=== PATIENT | female | born 1970 | race Caucasian/White ===

== ENCOUNTER → 2016-09-01 | Outpatient (CLI) | payer OTHER ==
[2016-09-01 18:18] LABS: Blood Urea Nitrogen 12 mg/dL (7-17); Non-African American GFR(MDRD) >60 (>60 ml/min/1.73 sqM)
--- NOTE | 2016-09-01 19:20 | CT ---
EXAMINATION TYPE: CT brain wo/w con DATE OF EXAM: 09/01/2016 COMPARISON: January 05, 2016 HISTORY: Left eye visoin loss and left side neck swelling. CT DLP: 6.4mGycm CONTRAST: CT scan of the head is performed without and with IV Contrast, patient injected with 100 mL of Omnipa que 300. Unenhanced followed by contrast enhanced CT of the brain is submitted for evaluation. The ventricles are midline. There is no evidence for intracranial hemorrhage or extra-axial collection. No mass e ffects are identified. Visualized bony calvarium is intact. Contrast is administered and no enhanci ng lesions are detected. No pathologic enhancement is identified. If symptoms persist consider MRI. IMPRESSION: No significant abnormality identified at this time.
--- NOTE | 2016-09-02 06:54 | US ---
EXAMINATION TYPE: US carotid duplex BILAT DATE OF EXAM: 09/01/2016 COMPARISON: US CLINICAL HISTORY: R51 Left facial pain,H54.62 Left vison loss. Left facial pain, vision loss EXAM MEASUREMENTS: RIGHT: Peak Systolic Velocity (PSV) cm/sec ----- Right CCA: 77.3 ----- Right ICA: 68.6 ----- Right ECA: 61.9 ICA/CCA ratio: 0.9 RIGHT: End Diastole cm/sec ----- Right CCA: 19.7 ----- Right ICA: 33.2 ----- Right ECA: 12.1 LEFT: Peak Systolic Velocity (PSV) cm/sec ----- Left CCA: 88.9 ----- Left ICA: 68.1 ----- Left ECA: 66.0 ICA/CCA ratio: 0.8 LEFT: End Diastole cm/sec ----- Left CCA: 21.4 ----- Left ICA: 28.7 ----- Left ECA: 13.1 VERTEBRALS (direction of flow): Right Vertebral: Antegrade Left Vertebral: Antegrade No elevated velocities, no significant stenosis IMPRESSION: I DO NOT SEE EVIDENCE OF A HEMODYNAMICALLY SIGNIFICANT STENOSIS IN EITHER CAROTID SYSTEM. Criteria for Assigning % of Stenosis / Diameter reduction (Estimation based on the indirect measurements of the internal carotid artery velocities (ICA PSV). 1. Normal (no stenosis)=ICA PSV < 125 cm/s: ratio < 2.0: ICA EDV<40 cm/s. 2. Less than 50% stenosis=ICA PSV < 125 cm/s: ratio < 2.0: ICA EDV<40 cm/s. 3. 50 to 69% stenosis=ICA PSV of 125 to 230 cm/s: ration 2.0 ? 4.0: ICA EDV 40-100 cm/s. 4. Greater than 70% stenosis to near occlusion= ICA PSV > 230 cm/s: ratio > 4.0: ICA EDV > 100 cm/s. 5. Near occlusion= ICA PSV velocities may be low or undetectable: variable ratio and ICA EDV. 6. Total occlusion=unable to detect flow.
== END | disposition home or self-care (01) ==
LOC: RADUSMAIN 17:47
PROVIDERS: ATTEND Family Medicine
DX: R41.3 Other amnesia (principal); H53.122 Transient visual loss, left eye; R51 Headache
CPT/HCPCS: 82565; 84520; 93880; 70470; 36415; Q9967

== ENCOUNTER → 2016-11-17 | Outpatient (CLI) | payer OTHER ==
--- NOTE | 2016-11-22 09:35 | MM ---
Reason for exam: screening (asymptomatic). Last mammogram was performed 2 years and 1 month ago. History: Family history of breast cancer in maternal aunt. Physical Findings: A clinical breast exam by your physician is recommended on an annual basis and results should be correlated with mammographic findings. MG Screening Mammo w CAD Bilateral CC and MLO view(s) were taken. XCCL view(s) were taken of the left breast. Prior study comparison: October 07, 2014, mammogram, performed at [facility]. September 09, 2013, mammogram, performed at [facility]. There are scattered fibroglandular densities. There is no discrete abnormality. No significant changes when compared with prior studies. ASSESSMENT: Negative, BI-RAD 1 RECOMMENDATION: Routine screening mammogram of both breasts in 1 year.
== END | disposition home or self-care (01) ==
LOC: RADMAMWWP 16:11
PROVIDERS: ATTEND Family Medicine
DX: Z12.31 Encounter for screening mammogram for malignant neoplasm of breast (principal)

== ENCOUNTER → 2017-09-05 | Outpatient (CLI) | payer OTHER ==
[2017-09-05 12:24] LABS: Blood Urea Nitrogen 9 mg/dL (7-17)
--- NOTE | 2017-09-05 16:16 | CT ---
EXAMINATION TYPE: CT soft tissue neck w con DATE OF EXAM: 09/05/2017 COMPARISON: NONE HISTORY: Lt neck pain and mass CT DLP: 682 mGycm CONTRAST: Patient injected with 100 mL of Isovue 300. TECHNIQUE: Axial images at 3 mm thick sections. Reconstructed images in the coronal plane and sagitt al plane are reviewed. FINDINGS: Limited CT sections are obtained the lung apices. The lung apices appear clear. CT neck: The torus tubarius and fossa of Rosenmuller are normal. Wafer Fab Operator spaces are normal. Para nasal sinuses and mastoid air cells are clear. Beam hardening artifact from dental amalgam is present. Parotid glands appear normal and symmetrical. Submandibular glands, are normal. There are prominent nodes in the submandibular region measuring up to 0.8 to 0.9 cm size. The BB marking the palpable am algam overlies the left parotid gland. No underlying mass is evident. Parapharyngeal spaces are osito l. No suspicious enlarged adenopathy is evident. The hypopharynx appears within normal limits. Vocal cord level appear symmetrical. Thyroid as visualized is normal. Osseous structures are normal. IMPRESSIONS: 1. No suspicious mass at the level of the left parotid gland marked by the BB as the palpable abnorma lity.
== END | disposition home or self-care (01) ==
LOC: RADCTMAIN 11:34
PROVIDERS: ATTEND Family Medicine
DX: R22.1 Localized swelling, mass and lump, neck (principal)
CPT/HCPCS: 82565; 84520; 70491; 36415; Q9967

== ENCOUNTER → 2017-12-19 | Outpatient (CLI) | payer OTHER ==
[2017-12-19 16:58] LABS: Basophils % (A) 0 %; Eosinophils # (A) 0.2 k/uL (0-0.7); Eosinophils % (A) 2 %; HCT 47.2 % (34.0-46.0); HGB 15.9 gm/dL (11.4-16.0); Lymphocytes # (A) 2.5 k/uL (1.0-4.8); Lymphocytes % (A) 33 %; MCH 28.9 pg (25.0-35.0); MCHC 33.7 g/dL (31.0-37.0); MCV 85.8 fL (80.0-100.0); Mean Platelet Volume 7.7; Monocytes # (A) 0.3 k/uL (0-1.0); Monocytes % (A) 4 %; Neutrophils # (A) 4.7 k/uL (1.3-7.7); Neutrophils % (A) 60 %; Platelet Count 256 k/uL (150-450); RDW 12.6 % (11.5-15.5); WBC 7.7 k/uL (3.8-10.6)
[2017-12-19 18:30] LABS: Erythrocyte Sedimentation Rate 2 mm/hr (0-20)
[2017-12-20 04:08] LABS: Hemoglobin A1C 10.5 % (4.0-6.0)
== END | disposition home or self-care (01) ==
LOC: LABWHC1 16:21
PROVIDERS: ATTEND Ophthalmology
DX: M31.6 Other giant cell arteritis (principal)
CPT/HCPCS: 36415; 82164; 83036; 85025; 85652; 86038; 86140

== ENCOUNTER → 2017-12-21 | Outpatient (CLI) | payer OTHER ==
--- NOTE | 2017-12-21 14:18 | MM ---
Reason for exam: screening (asymptomatic). Last mammogram was performed 1 year and 1 month ago. History: Family history of breast cancer in maternal aunt. Physical Findings: A clinical breast exam by your physician is recommended on an annual basis and results should be correlated with mammographic findings. MG Screening Mammo w CAD Bilateral CC and MLO view(s) were taken. Prior study comparison: November 17, 2016, bilateral MG screening mammo w CAD. October 07, 2014, mammogram, performed at [facility]. There are scattered fibroglandular densities. There is no discrete abnormality. ASSESSMENT: Negative, BI-RAD 1 RECOMMENDATION: Routine screening mammogram of both breasts in 1 year.
== END | disposition home or self-care (01) ==
LOC: RADMAMWWP 07:18
PROVIDERS: ATTEND Family Medicine
DX: Z12.31 Encounter for screening mammogram for malignant neoplasm of breast (principal)
CPT/HCPCS: 77067

== ENCOUNTER → 2017-12-23 | Outpatient (CLI) | payer OTHER ==
--- NOTE | 2017-12-25 15:43 | MR ---
EXAMINATION TYPE: MR brain wo/w con DATE OF EXAM: 12/23/2017 COMPARISON: CT brain September 01, 2016. MRI brain July 25, 2012 HISTORY: cranial nerve disorder loss of vision TECHNIQUE: Multiplanar, multisequence images of the brain and brainstem is performed without and with IV contras t, utilizing 9 mL intravenous Gadavist . FINDINGS: Diffusion weighted images demonstrate no evidence of a recent infarct or other diffusion ab normality. There is no worrisome extra-axial fluid collection. The ventricular system and cisternal spaces are normal in size and appearance. The brain volume is age appropriate. A few scattered smal l foci of T2 hyperintensity seen throughout the white matter bilaterally. Less than 5 lesions are pre sent. For reference 3 mm left frontal lesion axial image 19 and 3 mm elongated posterior right fronta l lesion axial image 21 are noted. These are new from prior study. Midline structures demonstrate normal morphology. The craniocervical junction appears within normal limits. Post contrast images demonstrate no abnormal enhancement. The dural venous sinuses appear pa tent. The visualized sinuses are clear and the globes are intact. IMPRESSION: New minimal nonspecific white matter changes otherwise unremarkable study. No suspicious enhancement is present.
== END | disposition home or self-care (01) ==
LOC: RADMRIMAIN 08:49
PROVIDERS: ATTEND Ophthalmology
DX: G52.9 Cranial nerve disorder, unspecified (principal); Z88.7 Allergy status to serum and vaccine
CPT/HCPCS: 82565; 70553; 36415; A9581

== ENCOUNTER → 2018-01-15 | Outpatient (CLI) | payer OTHER ==
[2018-01-15 12:11] LABS: T4, Free (Free Thyroxine) 1.48 ng/dL (0.78-2.19)
== END | disposition home or self-care (01) ==
LOC: LABWHC1 10:52
PROVIDERS: ATTEND Psychiatry & Neurology Neurology
DX: R41.3 Other amnesia (principal)
CPT/HCPCS: 36415; 82607; 84439; 84443

== ENCOUNTER → 2018-02-10 | Outpatient (CLI) | payer OTHER ==
--- NOTE | 2018-02-11 12:24 | MR ---
EXAMINATION TYPE: MR cervical spine wo con DATE OF EXAM: 02/10/2018 12:18 PM COMPARISON: NONE HISTORY: Headaches with Left arm weakness Multiplanar MultiSpin echo imaging of the cervical spine was performed. Comparison: none C2-C3: No evidence for degenerative disc disease. No disc bulge/herniation or protrusion. No Canal stenosis. Foramina are patent bilaterally. C3-C4: No evidence for degenerative disc disease. No disc bulge/herniation or protrusion. No Canal stenosis. Foramina are patent bilaterally. C4-C5: There is mild disc desiccation noted. Mild posterior disc bulge. No evidence for a disc hernia tion or central stenosis. Bilateral foramina are patent. C5-C6: There is mild disc desiccation noted. Mild posterior disc bulge. No evidence for a disc hernia tion or central stenosis. Bilateral foramina are patent. C6-C7: There is mild disc desiccation noted. Mild posterior disc bulge. No evidence for a disc hernia tion or central stenosis. Bilateral foramina are patent. C7-T1: No evidence for degenerative disc disease. No disc bulge/herniation or protrusion. No Canal stenosis. Foramina are patent bilaterally. Cervical segments are intact. There is normal alignment. Cervical spinal cord is of normal signal. Craniovertebral junction relationships are within normal limits. IMPRESSION: 1. Disc desiccation and disc bulging as noted.
== END | disposition home or self-care (01) ==
LOC: RADMRIMAIN 11:27
PROVIDERS: ATTEND Psychiatry & Neurology Neurology
DX: M50.221 Other cervical disc displacement at C4-C5 level (principal); M50.821 Other cervical disc disorders at C4-C5 level; G43.009 Migraine without aura, not intractable, without status migrainosus
CPT/HCPCS: 72141

== ENCOUNTER → 2018-03-10 | Outpatient (CLI) | payer OTHER ==
--- NOTE | 2018-03-11 17:06 | MR ---
EXAMINATION TYPE: MR lumbar spine wo con DATE OF EXAM: 03/10/2018 COMPARISON: HISTORY: Back pain TECHNIQUE: Multiplanar, multisequence images of the lumbar spine were acquired. L1-L2: Normal disc appearance without desiccation. No herniation, protrusion or disc bulging. No ca nal stenosis is present. Foramina are patent bilaterally. L2-L3: Normal disc appearance without desiccation. No herniation, protrusion or disc bulging. No ca nal stenosis is present. Foramina are patent bilaterally. L3-L4: No herniation, protrusion or disc bulging. No canal stenosis is present. Foramina are paten t bilaterally. L4-L5: Normal disc appearance without desiccation. No herniation, protrusion or disc bulging. No ca nal stenosis is present. Foramina are patent bilaterally. L5-S1: Increased signal at the posterior aspect of the disc could be due to small annular tear, minim al posterior disc bulge, there is lateral extension of endplate disc complex encroaches somewhat on t he foramina, no significant central stenosis. Lumbar segments are intact. No paraspinal masses are identified. Conus medullaris has a normal appe arance. Lumbar vertebral bodies show preserved height and alignment, there is multilevel spondylosis with endplate discogenic marrow signal change. Some loss of disc signal present L3-4, L2-3 and L5-S1 compatible disc desiccation. IMPRESSION: Degenerative disc disease is mild, no significant disc herniation.
== END | disposition home or self-care (01) ==
LOC: RADMRIMAIN 14:33
PROVIDERS: ATTEND Psychiatry & Neurology Neurology
DX: M51.36 Other intervertebral disc degeneration, lumbar region (principal)
CPT/HCPCS: 72148

== ENCOUNTER → 2018-03-14 | Outpatient (CLI) | payer OTHER ==
--- NOTE | 2018-03-14 16:20 | PN ---
PROGRESS NOTE 47-year-old lady has been followed in Sleep Center to discuss results of sleep studies and following plan. The patient had polysomnogram and multiple sleep latency test and I discussed results of the sleep studies with the patient in detail. Diagnostic polysomnogram did not show any significant respiratory abnormalities during the sleep. Total apnea-hypopnea index only 0.6 and lowest oxygen level was 90.5%. Multiple sleep latency test done on the following day consisted from 5 naps. The patient fell asleep on all naps very quickly. Mean sleep latency only 3.5 minutes. No sleep onset REM periods have been documented. Sleep time during the night was short 4 hours 42 minutes. The patient continues to feel sometimes sleepiness during the day, sometimes difficulties with falling asleep at night. During the sleep study, sleep latency was prolonged to 60.6 minutes. MEDICATIONS: Amoxicillin, ibuprofen, hydrocortisone cream, oxybutynin, , Methylprednisolone 4 mg problems, chlorthalidone 50 mg tablets, benazepril, NovoLog, Bupropion, , vitamin D, metformin, diazepam, topiramate, fluconazole, alprazolam, . PHYSICAL EXAM: Patient in no distress. BP 133/80, HR 99. RR 16, oxygen saturation on room air 97%. Temperature 98.3. Height 64 inches, weight 199 pounds. Body mass index 34.1. Oropharynx moderately low position of soft palate. Abdomen slightly obese. Neck Supple, no JVD. Thyroid is not palpable. LUNGS Clear to percussion and to auscultation. Good air exchange. No wheezing or rhonchi. HEART S1, S2 regular. No murmurs, gallops, or rubs. ABDOMEN: Slightly obese. Soft and nontender. Bowel sounds are present. No organomegaly appreciated. EXTREMITIES No clubbing or cyanosis. COMMERCIAL AIRLINE PILOT Awake, alert, and oriented X3. Cranial nerves 2 to 7 intact. There is no fasciculation or atrophy. noted. No focal deficits observed. IMPRESSION: 1. No significant respiratory abnormalities have been documented during the sleep study. 2. Multiple sleep latency test confirmed pathological sleepiness although the time and sleep during the test at night was not perfect. 3. History of schizophrenia. 4. History of depression. 5. History of anxiety. 6. Hypertension. 7. Diabetes mellitus. 8. History of urinary incontinence. 9. Episodes of migraines. 10.Status post tubal ligations. PLAN: 1. Sleep study documented pathological sleepiness. The patient is driving. I will start patient on small dose of Adderall 1-2 times a day 5 mg to prevent excessive daytime sleepiness. 2. Possible narcolepsy. 3. Sleep hygiene with regular time in bed for at least 7.5 hours. Stimulus control, paradoxical intention, worry time, no watching clock. 4. Precautions related to driving. No driving if feeling sleepiness. Thank you very much for allowing me to participate in management of your patient. Sincerely, Jonas Wsie MD, PhD, FAASM Diplomat of [place] [employer] [place] [employer] Mortgage Processing Manager of [facility] [place] MMODL / KLARISSAN: [id number] /
== END | disposition home or self-care (01) ==
LOC: SLEEP 14:04
PROVIDERS: ATTEND Internal Medicine
DX: G47.10 Hypersomnia, unspecified (principal); F32.9 Major depressive disorder, single episode, unspecified; F41.9 Anxiety disorder, unspecified; I10 Essential (primary) hypertension; E11.9 Type 2 diabetes mellitus without complications; G43.909 Migraine, unspecified, not intractable, without status migrainosus; Z86.59 Personal history of other mental and behavioral disorders; Z87.448 Personal history of other diseases of urinary system; Z79.1 Long term (current) use of non-steroidal anti-inflammatories (NSAID); Z79.4 Long term (current) use of insulin; Z79.84 Long term (current) use of oral hypoglycemic drugs; Z98.890 Other specified postprocedural states

== ENCOUNTER → 2018-03-22 | Outpatient (CLI) | payer OTHER ==
--- NOTE | 2018-04-04 07:32 | P.HOLTER ---
Diagnosis palpitations 24-hour Holter monitor shows sinus rhythm with PACs heart rates range from 65- 176 beats a minute to 96 beats a minute no bradycardia or pauses no sustained arrhythmias
== END | disposition home or self-care (01) ==
LOC: RADECHMAIN 11:55
PROVIDERS: ATTEND Family Medicine
DX: I49.1 Atrial premature depolarization (principal); Z88.8 Allergy status to other drugs, medicaments and biological substances
CPT/HCPCS: 93225; 93226

== ENCOUNTER 2018-04-10 11:57 | Emergency (ER) | payer OTHER ==
[2018-04-10 12:02] VITALS: BP 143/107; PULSE 93; RESP 18; TEMP 97.6
[2018-04-10 13:02] LABS: Glucose,Whole Blood 253 mg/dL (75-99)
[2018-04-10] MEDS ORDERED: INSULIN ASPART 100 UNIT/ML 1 ML 10 ML VIAL SQ ONE (13:12)
[2018-04-10] MEDS ORDERED: DEXAMETHASONE SOD PHOSPHATE 10 MG/ML 1 ML VIAL IM STA (13:12)
--- NOTE | 2018-04-10 13:16 | ED ---
General Adult HPI - General Chief complaint: Extremity Problem,Nontraumatic Stated complaint: Jaw pain/tongue swollen/back pain Time Seen by Provider: 04/10/18 12:36 Source: patient, RN notes reviewed Mode of arrival: ambulatory Limitations: no limitations - History of Present Illness Initial comments: 47-year-old female sent emergency Department with multiple complaints. Patient states she has ongoing chronic issues and states that she's not getting answers that she would like. Patient states that she has swelling on the upper portion of her dentition secondary to tooth extraction. She states that she believes there is infection. Patient also states that she's been biting her tongue at nighttime since she's had it heat extracted because she states that her bite is different. She has not seen a dentist for this. Patient reports no headache no dizziness no chest pain or shortness of breath. Patient complains of left wrist pain and which she saw Dr. Carmichael for recent he had an injection but states that symptoms still persist now. Patient denies any nausea vomiting diarrhea constipation. She also states that she loses her blood sugar is high but she has not checked it. She is requesting us to check her blood sugar. - Related Data Previous Rx's Medication Instructions Recorded methylPREDNISolone Dose Pack 4 mg PO DIRECTED #21 package 12/26/15 [Medrol Dose Pack] traMADol HCl [Ultram] 50 mg PO Q6H PRN #20 tab 12/26/15 Naproxen 500 mg PO BID #20 tablet 04/10/18 Allergies Allergy/AdvReac Type Severity Reaction Status Date / Time tetanus and diphtheria Allergy Unknown Verified 04/10/18 12:02 toxoids [tetanus & diphtheria toxoids] Review of Systems ROS Statement: Those systems with pertinent positive or pertinent negative responses have been documented in the HPI. ROS Other: All systems not noted in ROS Statement are negative. Past Medical History Past Medical History: Diabetes Mellitus, Hypertension, Osteoarthritis (OA) Additional Past Medical History / Comment(s): carpal tunnel History of Any Multi-Drug Resistant Organisms: None Reported Past Surgical History: Tubal Ligation, Uterine Ablation Past Psychological History: No Psychological Hx Reported Smoking Status: Never smoker Past Alcohol Use History: None Reported Past Drug Use History: None Reported General Exam Limitations: no limitations General appearance: alert, in no apparent distress Head exam: Present: atraumatic, normocephalic, normal inspection Eye exam: Present: normal appearance, PERRL, EOMI. Absent: scleral icterus, conjunctival injection, periorbital swelling ENT exam: Present: mucous membranes moist, TM's normal bilaterally, normal external ear exam. Absent: normal oropharynx (Erythema, swelling noted the left upper) Neck exam: Present: normal inspection, full ROM. Absent: tenderness, meningismus, lymphadenopathy Respiratory exam: Present: normal lung sounds bilaterally. Absent: respiratory distress, wheezes, rales, rhonchi, stridor Cardiovascular Exam: Present: regular rate, normal rhythm, normal heart sounds. Absent: systolic murmur, diastolic murmur, rubs, gallop, clicks GI/Abdominal exam: Present: soft, normal bowel sounds. Absent: distended, tenderness, guarding, rebound, rigid Extremities exam: Present: other (Mild swelling to left hand, wrist region no erythema full range of motion neurovascular intact) Neurological exam: Present: alert, oriented X3, CN II-XII intact, reflexes normal. Absent: motor sensory deficit Skin exam: Present: warm, dry, intact, normal color. Absent: rash Course Vital Signs 04/10/18 11:59 Temperature 97.6 F Pulse Rate 93 Respiratory 18 Rate Blood Pressure 143/107 O2 Sat by Pulse 100 Oximetry Medical Decision Making - Medical Decision Making 47-year-old female presented for multiple complaints. Patient primary complaint left hand wrist pain. She does have notable swelling secondary to her rheumatoid arthritis has had prior injection to this is no evidence of infection, neurovascular intact. Patient will be given a shot of steroids, also be given insulin secondary to history of diabetes. Patient blood sugar currently is 250. Patient has signs of infection left upper dentition. Patient was started on antibiotics. Patient will be advised follow-up with dentist. - Lab Data Lab Results 04/10/18 Range/Units 12:59 POC Glucose (mg/dL) 253 H (75-99) mg/dL POC Glu Tax Collection Coordinator ID Umesh Fisher Disposition Clinical Impression: Pain, dental, Tongue injury, Diabetes, Arthritis, Wrist pain Disposition: HOME SELF-CARE Condition: Stable Instructions: Wrist Injury (ED), Toothache (ED) Additional Instructions: Please wear bite splint at night time. Please return to the Emergency Department if symptoms worsen or any other concerns. Prescriptions: Naproxen 500 mg PO BID #20 tablet Is patient prescribed a controlled substance at d/c from ED?: No Referrals: Felipe Thurman MD [Primary Care Provider] - 1-2 days Bang Grant MD [STAFF PHYSICIAN] - 1-2 days Time of Disposition: 13:15
== END 2018-04-10 13:44 | disposition home or self-care (01) ==
LOC: EC 11:57
DX: M19.031 Primary osteoarthritis, right wrist (principal); E11.9 Type 2 diabetes mellitus without complications; K08.89 Other specified disorders of teeth and supporting structures; S09.93XA Unspecified injury of face, initial encounter; M06.9 Rheumatoid arthritis, unspecified; Z88.7 Allergy status to serum and vaccine; Z98.818 Other dental procedure status
CPT/HCPCS: 36415; 99283; 96372; J1100

== ENCOUNTER → 2018-04-21 | Outpatient (CLI) | payer OTHER ==
--- NOTE | 2018-04-21 14:00 | MR ---
EXAMINATION TYPE: MR angio head wo con DATE OF EXAM: 04/21/2018 COMPARISON: NONE HISTORY: Migraines TECHNIQUE: Utilizing 3-D [id number] intracranial MRA of the [place] of [place] was performed. FINDINGS: The vertebrobasilar and carotid systems are patent. There is no sizable aneurysm or vascular malform ation. Left vertebral artery is dominant. Localized narrowing at the origin where the M3 branches of the left middle cerebral artery may be artifactual. Focal area of intracranial atherosclerotic disea se in the differential diagnosis. IMPRESSION: 1. No sizable aneurysm. See above.
== END | disposition home or self-care (01) ==
LOC: RADMRIMAIN 13:15
PROVIDERS: ATTEND Psychiatry & Neurology Neurology
DX: G43.009 Migraine without aura, not intractable, without status migrainosus (principal)
CPT/HCPCS: 70544

== ENCOUNTER → 2018-07-12 | Outpatient (CLI) | payer OTHER ==
--- NOTE | 2018-07-12 15:16 | SFUN ---
SLEEP CENTER FOLLOW UP NOTE DATE OF SERVICE: 07/12/2018 A 47-year-old lady who has been followed in Sleep Center for treatment of excessive daytime sleepiness, which has been confirmed by multiple sleep latency test which showed pathological sleepiness with a mean sleep latency only 3.5 minutes, most probably narcolepsy. Patient continued to have sleepiness during the daytime. Her [place] Sleepiness Scale today is 17. For different reasons she was not able to get the medication which I recommended during the previous visit, which was Adderall, smallest dose,. but again as I already mentioned above, patient continued to feel significant sleepiness. MEDICATIONS: Januvia, oxybutynin, NovoLog, bupropion, metformin, diazepam, , fluconazole and Triazolam. PHYSICAL EXAM: Patient in no distress. BP 135/92, HR 90, RR 16, height 5 foot 4 inches, weight 203 pounds. Body mass index 34.8, temperature 98.0, oxygen saturation at room air 99%. OROPHARYNX: Moderately low position of soft palate. ABDOMEN: Slightly obese. Neck Supple, no JVD. Thyroid is not palpable. LUNGS Clear to percussion and to auscultation. Good air exchange. No wheezing or rhonchi. HEART S1, S2 regular. No murmurs, gallops, or rubs. EXTREMITIES No clubbing or cyanosis. DISTRICT CLAIMS MANAGER Awake, alert, and oriented X3. Cranial nerves 2 to 7 intact. There is no fasciculation or atrophy. noted. No focal deficits observed. IMPRESSION: 1. Most probably narcolepsy, extremely short sleep latency in pathological range 3.5 minutes confirmed by multiple sleep latency tests. 2. History of depression. 3. History of schizophrenia. 4. History of anxiety. 5. Hypertension. 6. Diabetes mellitus. 7. History of urinary incontinence. 8. Episodes of migraines. 9. Status post tubal ligations. PLAN: 1. I will write a prescription for Adderall 5 mg 2 times a day. 2. Sleep hygiene with regular time in bed for at least 8 hours. 3. Extreme precautions to driving. No driving if feeling sleepiness. Thank you very much for allowing me to participate in the management of your patient. Sincerely, Jonas Wise MD, PhD, FAASM Diplomat of [place] [employer] [place] [employer] Manager [facility] [place] MMODL / IJN: [id number] /
== END ==
LOC: SLEEP 13:11
PROVIDERS: ATTEND Internal Medicine
DX: I10 Essential (primary) hypertension (principal); F32.9 Major depressive disorder, single episode, unspecified; F20.9 Schizophrenia, unspecified; F41.9 Anxiety disorder, unspecified; E11.9 Type 2 diabetes mellitus without complications; G43.909 Migraine, unspecified, not intractable, without status migrainosus; R32 Unspecified urinary incontinence; Z98.51 Tubal ligation status; Z79.899 Other long term (current) drug therapy; Z79.84 Long term (current) use of oral hypoglycemic drugs

== ENCOUNTER 2018-08-01 08:46 | Day surgery (SDC) | payer OTHER ==
[2018-07-31 09:18] VITALS: BMI 33.3
[~2018-08-01 08:46] MED LIST: LACTATED RINGERS 1,000 ML IV SCH
[2018-08-01 09:01] VITALS: RESP 18; TEMP 97.8
[2018-08-01] MEDS ORDERED: LIDOCAINE 1% 20 ML VIAL (10MG/ML) FOR IV START INTRADERMA ONE (09:20)
[2018-08-01 09:21] LABS: Glucose,Whole Blood 223 mg/dL (75-99)
--- NOTE | 2018-08-01 10:29 | P.PCN ---
Date of Procedure: 08/01/18 Procedure(s) Performed: Preoperative diagnosis: Multiple sclerosis Post operative diagnoses: Multiple sclerosis Anesthesia = moderate sedation with Versed 2 mg and fentanyl 50 g Condition: stable Complication: none. Description of the procedure procedure risk and benefits discussed with the patient and family, consent signed. Sedation was given to decrease patient anxiety, vital signs monitored during the procedure Patient and the procedure area placed in sitting position back prepped with chlorhexidine 3 times been local infiltration of the skin and subcutaneous tissue with lidocaine 1% 2 mL for skin and subcu interstitial frustrations at L4 5 levels then 22-gauge Quincke-type needle advanced slowly at L4- 5 interlaminar space there was positive cerebrospinal fluid which was clear, no heme, no paresthesia ,total of 8 ML of clear cerebrospinal fluid collected in 4 different tubes 2 mL in each, then the needle removed and a Band-Aid applied and patient tolerated the procedure well without any complications.
[2018-08-01] MEDS ORDERED: IV FLUID CONTINUATION 1,000 ML IV ONE (10:32)
[2018-08-01 10:52] LABS: Glucose,Whole Blood 214 mg/dL (75-99)
[2018-08-01 11:26] VITALS: BP 123/78; PULSE 86
[2018-08-01 12:52] LABS: Glucose,CSF 128 mg/dL (40-70); Total Protein,CSF 52 mg/dL (12-60)
[2018-08-01 13:05] LABS: T4, Free (Free Thyroxine) 1.35 ng/dL (0.78-2.19)
[2018-08-01 13:32] LABS: Appearance,CSF Clear; CSF Tube Number 4; CSF Tube Volume 2.1; Nucleated Cells, CSF 1 u/L (0-5); Red Blood Cell,CSF 0 u/L (0-10)
[2018-08-01 19:42] LABS: Rheumatoid Factor 5 IU/mL (0-15)
[2018-08-01 20:29] LABS: Anti-DNA, DS unit <1.0 IU/mL; DNA Double-Stranded NEGATIVE (NEGATIVE); RNP <0.2 AI
[2018-08-02 13:57] LABS: APTT 32 Sec(s) (<43); Dilute Russell Viper Venom 35 Sec(s) (<44)
[2018-08-03 11:12] LABS: VDRL, Qualitative CSF Nonreactive (Nonreactive)
[2018-08-03 14:46] LABS: Lyme IgG/IgM 0.02 Index
== END 2018-08-01 11:40 | disposition home or self-care (01) ==
LOC: ORPAIN 08:46
PROVIDERS: ATTEND Specialist
DX: G35 Multiple sclerosis (principal); Z88.7 Allergy status to serum and vaccine; E11.9 Type 2 diabetes mellitus without complications
CPT/HCPCS: 81025; 86592; 86235 ×3; 84439; 88108; 84157; 82945; 82040; 82042; 82784; 83916; 83873; 84443; 84450; 84460; 85730; 86431; 85613; 89050; 86618; 86780; 86038; 86225; 87801; 62270; J2250; J3010

== ENCOUNTER → 2018-08-23 | Outpatient (CLI) | payer OTHER ==
--- NOTE | 2018-08-24 10:06 | US ---
EXAMINATION TYPE: US carotid duplex BILAT DATE OF EXAM: 08/23/2018 COMPARISON: NONE CLINICAL HISTORY: G43.009 Migraine, R20.0 L sided numbness. Left side numbness. EXAM MEASUREMENTS: RIGHT: Peak Systolic Velocity (PSV) cm/sec ----- Right CCA: 72.5 ----- Right ICA: 95.1 ----- Right ECA: 85.4 ICA/CCA ratio: 1.3 RIGHT: End Diastole cm/sec ----- Right CCA: 19.2 ----- Right ICA: 27.3 ----- Right ECA: 22.5 LEFT: Peak Systolic Velocity (PSV) cm/sec ----- Left CCA: 77.4 ----- Left ICA: 75.8 ----- Left ECA: 67.7 ICA/CCA ratio: 1.1 LEFT: End Diastole cm/sec ----- Left CCA: 20.8 ----- Left ICA: 35.4 ----- Left ECA: 19.2 VERTEBRALS (direction of flow): Right Vertebral: Antegrade Left Vertebral: Antegrade Rhythm: Normal No significant stenosis seen IMPRESSION: 1. No significant flow-limiting stenosis based on velocities. Criteria for Assigning % of Stenosis / Diameter reduction (Estimation based on the indirect measurements of the internal carotid artery velocities (ICA PSV). 1. Normal (no stenosis)=ICA PSV < 125 cm/s: ratio < 2.0: ICA EDV<40 cm/s. 2. Less than 50% stenosis=ICA PSV < 125 cm/s: ratio < 2.0: ICA EDV<40 cm/s. 3. 50 to 69% stenosis=ICA PSV of 125 to 230 cm/s: ration 2.0 ? 4.0: ICA EDV 40-100 cm/s. 4. Greater than 70% stenosis to near occlusion= ICA PSV > 230 cm/s: ratio > 4.0: ICA EDV > 100 cm/s. 5. Near occlusion= ICA PSV velocities may be low or undetectable: variable ratio and ICA EDV. 6. Total occlusion=unable to detect flow.
== END | disposition home or self-care (01) ==
LOC: RADUSWWP 16:21
PROVIDERS: ATTEND Psychiatry & Neurology Neurology
DX: G43.009 Migraine without aura, not intractable, without status migrainosus (principal); R20.0 Anesthesia of skin
CPT/HCPCS: 93880

== ENCOUNTER → 2018-09-25 | Outpatient (CLI) | payer OTHER ==
--- NOTE | 2018-09-25 12:34 | ECHOF ---
Referral Reason:G43.009 Migraine, R20.0 L sided numbness MEASUREMENTS -------- HEIGHT: 165.1 cm WEIGHT: 90.7 kg BP: 125/76 RVIDd: 2.8 cm (< 3.3) IVSd: 1.2 cm (0.6 - 1.1) LVIDd: 3.8 cm (3.9 - 5.3) LVPWd: 1.1 cm (0.6 - 1.1) IVSs: 1.6 cm LVIDs: 2.4 cm LVPWs: 1.7 cm LA Diam: 3.4 cm (2.7 - 3.8) LAESV Index (A-L): 16.08 ml/m Ao Diam: 2.8 cm (2.0 - 3.7) AV Cusp: 2.1 cm (1.5 - 2.6) EPSS: 1.2 cm MV E Matthias: 0.78 m/s MV DecT: 178 ms MV A Matthias: 0.75 m/s MV E/A Ratio: 1.04 RAP: 5.00 mmHg RVSP: 24.96 mmHg MV EF SLOPE: 42.99 mm/s (70 - 150) MV EXCURSION: 1.07 cm (> 18.000) FINDINGS -------- Sinus rhythm. This was a technically adequate study. The left ventricular size is normal. There is borderline concentric left ventricular hypertrophy. Overall left ventricular systolic function is normal with, an EF between 60 - 65 %. The right ventricle is normal in size. Left atrium is normal size by volume. The right atrium is normal in size and function. Interatrial and interventricular septum intact. The aortic valve is trileaflet and appears structurally normal. The mitral valve is normal. The tricuspid valve appears structurally normal. The pulmonic valve was not well visualized. The aortic root size is normal. The inferior vena cava was not well visualized. There is no pericardial effusion. CONCLUSIONS -------- 1. Sinus rhythm. 2. This was a technically adequate study. 3. The left ventricular size is normal. 4. There is borderline concentric left ventricular hypertrophy. 5. Overall left ventricular systolic function is normal with, an EF between 60 - 65 %. 6. The right ventricle is normal in size. 7. Left atrium is normal size by volume. 8. The right atrium is normal in size and function. 9. Interatrial and interventricular septum intact. 10. The aortic valve is trileaflet and appears structurally normal. 11. The mitral valve is normal. 12. The tricuspid valve appears structurally normal. 13. The pulmonic valve was not well visualized. 14. The aortic root size is normal. 15. The inferior vena cava was not well visualized. 16. There is no pericardial effusion. GEOTECHNICAL FIELD TECHNICIAN: PIPPA Wilson
== END | disposition home or self-care (01) ==
LOC: RADECHMAIN 08:12
PROVIDERS: ATTEND Psychiatry & Neurology Neurology
DX: I51.7 Cardiomegaly (principal); R20.0 Anesthesia of skin
CPT/HCPCS: 93306

== ENCOUNTER → 2018-10-11 | Outpatient (CLI) | payer OTHER ==
--- NOTE | 2018-10-11 14:36 | SFUN ---
SLEEP CENTER FOLLOW UP NOTE DATE OF SERVICE: 10/11/2018: A 48-year-old lady who has been followed in Sleep Center for treatment of significant excessive daytime sleepiness, most probably narcolepsy. Presently, patient is on treatment with Adderall 5 mg 2 times a day. With medication she feels better during the day, not so sleepy as before. No any significant side effects of the medication. [place] Sleepiness Scale today is 11. MEDICATION: Januvia, oxybutynin, NovoLog, , metformin, diazepam, fluconazole, Tessalon. PHYSICAL EXAM: Patient in no distress. BP 138/87, HR 94, RR 16, height 5 foot, 4 inches, weight 202 pounds, body mass index 34.6, temperature 97.7. OROPHARYNX: Moderately low soft palate. ABDOMEN: Slightly obese. Neck Supple, no JVD. Thyroid is not palpable. LUNGS Clear to percussion and to auscultation. Good air exchange. No wheezing or rhonchi. HEART S1, S2 regular. No murmurs, gallops, or rubs. EXTREMITIES No clubbing or cyanosis. TEACHER ASSISTANT Awake, alert, and oriented X3. Cranial nerves 2 to 7 intact. There is no fasciculation or atrophy. noted. No focal deficits observed. IMPRESSION: 1. Hypersomnia, most probably narcolepsy with pathologically short sleepiness on MSLT 3.5 minutes. The patient feels slightly better on treatment with Adderall. No any side effects of Adderall presently. 2. History of depression. 3. History of schizophrenia. 4. History of anxiety. 5. Hypertension. 6. Diabetes mellitus. 7. History of urinary incontinence. 8. Episodes of migraines. 9. Status post tubal ligations. 10.Some difficulties to initiate sleep at night, possibly elements of sleep delay syndrome. PLAN: 1. Patient will continue Adderall 5 mg 1 tablet in the morning, 1 tablet in early afternoon. 2. As much as possible bright light exposure in the morning to help to move sleep cycle earlier. 3. Sleep hygiene with regular time in bed for at least 7-1/2 to 8 hours. 4. Precautions related to driving. No driving if feeling any sleepiness. 5. Will maintain prescription for Adderall. Thank you very much for allowing me to participate in the management of your patient. Sincerely, Jonas Wise MD, PhD, FAASM Diplomat of [employer] Airplane Technician of [facility] [place] MMPO / KAMAR: [id number] /
== END | disposition home or self-care (01) ==
LOC: SLEEP 13:11
PROVIDERS: ATTEND Internal Medicine
DX: G47.10 Hypersomnia, unspecified (principal); I10 Essential (primary) hypertension; E11.9 Type 2 diabetes mellitus without complications; G43.909 Migraine, unspecified, not intractable, without status migrainosus; Z86.59 Personal history of other mental and behavioral disorders; Z98.51 Tubal ligation status; Z79.4 Long term (current) use of insulin; Z79.899 Other long term (current) drug therapy

== ENCOUNTER → 2019-01-02 | Outpatient (CLI) | payer OTHER ==
--- NOTE | 2019-01-02 18:14 | PN ---
PROGRESS NOTE DATE OF SERVICE: 01/02/2019 This patient is a 48-year-old lady who has been followed in Sleep Center for treatment of significant excessive daytime sleepiness, possible narcolepsy. The patient is on treatment with Adderall 5 mg 2 times a day. In view of that treatment, the patient still continues to have problems with her daytime sleepiness. Also there is a possibility that for the time when she started to take Adderall, she had increased amount of her panic attacks. [place] Sleepiness Scale today is in the high range at 16. MEDICATIONS: 1. Januvia. 2. Oxybutynin. 3. NovoLog. 4. Metformin. 5. Diazepam. 6. Fluconazole. 7. Tessalon. PHYSICAL EXAMINATION: GENERAL: A pleasant patient in no distress. VITAL SIGNS: BP 121/86, HR about 100, RR 16, height 5 feet 4 inches. Weight 194.6, temperature 98.1. Oxygen saturation at room air 97%. HEENT: PERRLA, EOMI. Evaluation of oropharynx showed tongue protrudes midline. Moderately low position of soft palate. NECK: Supple. No JVD. Thyroid is not palpable. LUNGS: Clear to percussion and to auscultation. Good air exchange. No wheezing or rhonchi. HEART: S1, S2 regular. No murmurs, gallops or rubs. ABDOMEN: Obese. EXTREMITIES: No clubbing or cyanosis. YARN HAULER: Awake, alert, and oriented X3. Cranial nerves 2 to 7 intact. There is no fasciculation or atrophy. noted. No focal deficits observed. IMPRESSION: 1. Hypersomnia. MSLT showed mean sleep latency of 3.5 minutes without sleep-onset REM periods. The patient still continues to have sleepiness while on treatment with Adderall and possibly increased amount of panic attacks while on treatment with Adderall. 2. History of depression. 3. History of anxiety. 4. History of schizophrenia. 5. Hypertension. 6. Diabetes mellitus. 7. History of urinary incontinence. 8. Episodes of migraines. 9. Status post tubal ligation. 10.Some difficulties initiating sleep. PLAN: 1. Prescription for modafinil with adjustments of dose for correction of excessive daytime sleepiness. 2. For now, patient will continue to take Adderall with the same dose at 5 mg 2 times a day until she is able to get modafinil. 3. Sleep hygiene with regular time in bed for at least 7-1/2 to 8 hours. 4. Extreme precautions related to driving. No driving if feeling any sleepiness. 5. As we discussed before, as much exposure to bright light in the morning as possible and less bright light in the evening. Thank you very much for allowing me to participate in the management of your patient. Sincerely, Jonas Wise MD, PhD, FAASM Diplomat of [place] [employer] [place] [employer] Tank Inspector of [facility] [place] MMODL / IJN: [id number] /
== END | disposition home or self-care (01) ==
LOC: SLEEP 13:35
PROVIDERS: ATTEND Internal Medicine
DX: G47.10 Hypersomnia, unspecified (principal); I10 Essential (primary) hypertension; E11.9 Type 2 diabetes mellitus without complications; Z87.448 Personal history of other diseases of urinary system; G43.809 Other migraine, not intractable, without status migrainosus; Z98.51 Tubal ligation status; Z79.4 Long term (current) use of insulin; Z79.899 Other long term (current) drug therapy; Z86.59 Personal history of other mental and behavioral disorders

== ENCOUNTER → 2019-04-11 | Outpatient (CLI) | payer OTHER ==
--- NOTE | 2019-04-11 14:59 | PN ---
PROGRESS NOTE DATE OF SERVICE: 04/11/2019 A 48-year-old lady who has been followed in the Sleep Center for treatment of significant excessive daytime sleepiness, also with narcolepsy. Patient continued to feel significantly sleepy. [place] Sleepiness Scale today is 14. Patient is on treatment with Adderall 5 mg twice a day. There is a possibility that after she started to take Adderall, she increased amount of her panic attacks. MEDICATIONS: Januvia, oxybutynin, metformin, diazepam, fluconazole, Tessalon, . PHYSICAL EXAM: Patient in no distress, BP 136/82, HR 60, RR 16, height 5, 4, weight 198.8, temperature 97.8. Oxygen saturation at room air 94%. ABDOMEN: Obese. HEENT: PERRLA, EOMI, evaluation of oropharynx showed tongue protrudes midline. NECK: Supple, no JVD. Thyroid is not palpable. LUNGS: Clear to percussion and to auscultation. Good air exchange. No wheezing or rhonchi. HEART: S1, S2 regular. No murmurs, gallops, or rubs. EXTREMITIES: No clubbing or cyanosis. KITCHENWHERE MAKER: Awake, alert, and oriented X3. Cranial nerves 2 to 7 intact. There is no fasciculation or atrophy. noted. No focal deficits observed. IMPRESSION: 1. Hypersomnia, possibly narcolepsy, extremely short sleep latency by MSLT only 3.5 minutes, although no sleep onset REM periods. 2. Presently, patient is on treatment with Adderall, possibly Adderall increased amount of panic attacks for the patient. 3. During previous visit, I prescribed for patient modafinil, but she did not receive medication. 4. History of depression. 5. History of anxiety. 6. History of schizophrenia. 7. Hypertension. 8. Diabetes mellitus. 9. History of urinary incontinence. 10.Episodes of migraines. 11.Status post tubal ligation. 12.Sometimes difficulties to initiate sleep. PLAN: 1. Patient will continue to take Adderall 5 mg b.i.d. I do not want to increase dose higher than that because it is may increase risk for panic attacks for the patient who also has history of hypertension and anxiety. 2. Prescription for modafinil. We will work on prioritization for patient to get medication, dose will be started with a low range with adjustment dose for symptoms of excessive daytime sleepiness. 3. Precautions related to driving. No driving if feeling sleepiness. 4. Sleep hygiene with regular time in bed for 7-1/2 to 8 hours. 5. Daytime naps permitted if necessary. 6. Continue to use as much as possible bright light in the morning and less light in the evening. Thank you very much for allowing me to participate in the management of your patient. Sincerely, Jonas Wise MD, PhD, FAASM Diplomat of [place] [employer] [employer] Medicine Infant Teacher of [facility] [place] MMODL / IJN: [id number] /
== END | disposition home or self-care (01) ==
LOC: SLEEP 13:22
PROVIDERS: ATTEND Internal Medicine
DX: G47.10 Hypersomnia, unspecified (principal); G47.419 Narcolepsy without cataplexy; I10 Essential (primary) hypertension; E11.9 Type 2 diabetes mellitus without complications; G43.909 Migraine, unspecified, not intractable, without status migrainosus; F41.0 Panic disorder [episodic paroxysmal anxiety]; Z87.448 Personal history of other diseases of urinary system; Z86.59 Personal history of other mental and behavioral disorders; Z98.51 Tubal ligation status; Z79.84 Long term (current) use of oral hypoglycemic drugs; Z79.899 Other long term (current) drug therapy

== ENCOUNTER → 2019-06-13 | Outpatient (CLI) | payer OTHER ==
--- NOTE | 2019-06-13 18:04 | PN ---
PROGRESS NOTE DATE OF SERVICE: 06/13/2019 This patient is a 48-year-old lady who has been followed in the sleep center for treatment of significant excessive daytime sleepiness, possibly narcolepsy. The patient is on treatment with Adderall 5 mg 2 times a day, but she continues to feel sleepiness during the day. I recommended modafinil, but it was not covered by medical insurance. She continues to have sleepiness during the day. [place] Sleepiness Scale today is 18. She has difficulties with sleep at night related with falling asleep and awakenings from sleep. CURRENT MEDICATIONS: , bupropion, aripiprazole, montelukast, Lina, fluticasone, prednisone, Tessalon, oxybutynin, Januvia. PHYSICAL EXAMINATION: GENERAL: A pleasant patient in no distress. VITAL SIGNS: BP 154/90, HR about 92, RR 16, height 5 feet 4 inches, weight 205.8. Patient's weight has increased by 7 pounds since her previous visit. Temperature 97.7, oxygen saturation at room air 96%. HEENT: PERRLA, EOMI. Evaluation of oropharynx showed tongue protrudes midline. NECK: Supple. No JVD. Thyroid is not palpable. LUNGS: Clear to percussion and to auscultation. Good air exchange. No wheezing or rhonchi. HEART: S1, S2 regular. No murmurs, gallops or rubs. ABDOMEN: Slightly obese. EXTREMITIES: No clubbing or cyanosis. BUTTON MACHINE OPERATOR: Awake, alert, and oriented X3. Cranial nerves 2 to 7 intact. There is no fasciculation or atrophy. noted. No focal deficits observed. IMPRESSION: Excessive daytime sleepiness, possibly narcolepsy, extremely short sleep latency by multiple sleep latency test of only 3.5 minutes, although there were no sleep-onset REM periods. PLAN: 1. Patient will continue to take Adderall 5 mg b.i.d. 2. Prescription for Ambien 5 mg at bedtime to help patient fall asleep and to prevent awakenings from sleep. 3. Watching and losing weight. 4. Precautions related to driving. No driving if feeling any sleepiness. 5. Daytime naps permitted. 6. As I recommended before, bright light in the morning and less light in the evening. Thank you very much for allowing me to participate in the management of your patient. Sincerely, Jonas Stefadu, MD, PhD, FAASM Diplomat of [place] [employer] [employer] Medicine Oil Deliverer of [facility] [place] MMPO / KAMAR: [id number] /
== END | disposition home or self-care (01) ==
LOC: SLEEP 15:37
PROVIDERS: ATTEND Internal Medicine
DX: G47.10 Hypersomnia, unspecified (principal); Z79.51 Long term (current) use of inhaled steroids; Z79.52 Long term (current) use of systemic steroids; Z79.84 Long term (current) use of oral hypoglycemic drugs; Z79.899 Other long term (current) drug therapy

== ENCOUNTER → 2019-06-14 | Outpatient (CLI) | payer OTHER ==
--- NOTE | 2019-06-15 18:18 | MR ---
EXAMINATION TYPE: MR brain and iac wo/w con DATE OF EXAM: 06/14/2019 COMPARISON: Brain 12/23/2017 HISTORY: 48-year-old female left-sided Meniere's disease, evaluate for retrocochlear pathology TECHNIQUE: Multiplanar, multisequence images of the brain and brainstem were acquired before and aft er administration of 9 mL IV Gadavist. Diffusion weighted imaging was performed. Additional coned-d own sequences through the internal auditory canals and posterior cranial fossa before and after IV co ntrast administration. FINDINGS: Diffusion weighted images demonstrate no evidence of an acute ischemic lesion in the brain. T2/FLAIR weighted sequences show possibly 3 punctate subcortical foci within the cerebral hemispheres , unchanged from 12/23/2017. Midline structures demonstrate normal morphology. The craniocervical junction is normal. No cerebral atrophy or hydrocephalus. There is no evidence of an acute intracranial hemorrhage, infarct, mass, mass-effect or an extra-axia l fluid collection. There is no cerebellopontine angle mass. The internal auditory canals are symmetric. Brainstem and skull base abnormalities are not seen. Post contrast images demonstrate no evidence of pathologic enhancement in the posterior cranial anurag a or the internal auditory canals. There is no abnormal enhancement of the labyrinths. There is normal cochlear anatomy. Mild mucosal thickening ethmoid air cells. Leftward nasal septal deviation. Globes are intact. IMPRESSION: 1. Unchanged trace burden of chronic bright white matter change as compared to 12/23/2017 likely minim al early changes of chronic small vessel ischemic disease. Otherwise, no intracranial abnormality see n. 2. Unremarkable acoustic MRI. 3. Mild chronic ethmoid sinus disease.
== END | disposition home or self-care (01) ==
LOC: RADMRIMAIN 06:02
PROVIDERS: ATTEND Otolaryngology Otolaryngology/Facial Plastic Surgery
DX: H81.02 Meniere's disease, left ear (principal)
CPT/HCPCS: 70553; A9585

== ENCOUNTER 2019-08-07 19:13 | Emergency (ER) | payer OTHER ==
[2019-08-07 20:04] LABS: Basophils # (A) 0.1 k/uL (0-0.2); Basophils % (A) 1 %; Eosinophils # (A) 0.2 k/uL (0-0.7); Eosinophils % (A) 2 %; HCT 49.2 % (34.0-46.0); Lymphocytes # (A) 2.4 k/uL (1.0-4.8); Lymphocytes % (A) 26 %; MCH 28.9 pg (25.0-35.0); MCHC 32.4 g/dL (31.0-37.0); MCV 89.1 fL (80.0-100.0); Mean Platelet Volume 8.7; Monocytes # (A) 0.2 k/uL (0-1.0); Monocytes % (A) 3 %; Neutrophils % (A) 67 %; Platelet Count 240 k/uL (150-450); RBC 5.53 m/uL (3.80-5.40); RDW 13.1 % (11.5-15.5)
[2019-08-07 20:16] LABS: ALT 25 U/L (4-34); AST 27 U/L (14-36); African American GFR (CKD) >90 (>60 ml/min/1.73 sqM); Albumin 4.7 g/dL (3.5-5.0); Alkaline Phosphatase 120 U/L (38-126); Anion Gap 12 mmol/L; Blood Urea Nitrogen 11 mg/dL (7-17); Calcium 9.8 mg/dL (8.4-10.2); Carbon Dioxide 23 mmol/L (22-30); Chloride 98 mmol/L (98-107); Glucose 411 mg/dL (74-99); Non-African American GFR(CKD) >90 (>60 ml/min/1.73 sqM); Sodium 133 mmol/L (137-145); Total Bilirubin 0.4 mg/dL (0.2-1.3); Total Protein 7.4 g/dL (6.3-8.2)
--- NOTE | 2019-08-07 20:51 | US ---
EXAMINATION TYPE: US abdomen limited DATE OF EXAM: 08/07/2019 COMPARISON: NONE CLINICAL HISTORY: pain, erythema around umbilical area. Pain, erythema around umbilical area x couple days. Sterile gel used for exam. Scanned umbilical and surrounding area. Shadowing seen posterior to umbilicus. No abnormalities seen at this time by ultrasound at area of concern. IMPRESSION: Directly posterior to the umbilicus there is artifactual shadowing from an air gap. Surro unding the umbilicus no solid or cystic mass is seen.
[2019-08-07] MEDS ORDERED: SODIUM CHLORIDE 0.9% 1,000 ML IV STA (21:00)
--- NOTE | 2019-08-07 21:03 | ED ---
Skin/Abscess/FB HPI - General Source: patient Mode of arrival: ambulatory Limitations: no limitations <Bridgett Lee - Last Filed: 08/09/19 02:37> <Padmini Johnson - Last Filed: 08/10/19 20:22> - General Chief complaint: Skin/Abscess/Foreign Body Stated complaint: Abdominal pain Time Seen by Provider: 08/07/19 19:28 - History of Present Illness Initial comments: Patient is a 48-year-old female, with history diabetes, presenting to the emergency Department with complaints of a foul odor and redness around her umbilical region 2 days. Patient leaned against a counter today and noticed some tenderness around her umbilicus. Patient denies any fever, chills, nausea, vomiting, diarrhea. She states she's never had it tonight this before. She has no other complaints. (Bridgett Lee) - Related Data Home Medications Medication Instructions Recorded Confirmed ARIPiprazole [Abilify] 15 mg PO HS 07/31/18 07/31/18 Atenolol [Tenormin] 100 mg PO DAILY 07/31/18 08/01/18 Atenolol/Chlorthalidone 1 each PO DAILY 07/31/18 08/01/18 [Atenolol-Chlorthalidone 50-25] Benazepril HCl [Lotensin] 40 mg PO BID 07/31/18 07/31/18 Chlorthalidone 50 mg PO DAILY 07/31/18 07/31/18 INSULIN ASPART (NovoLOG) [NovoLOG 80 unit SQ HS 07/31/18 07/31/18 (formulary)] INSULIN ASPART (NovoLOG) [NovoLOG 100 unit SQ QAM 07/31/18 07/31/18 (formulary)] Liraglutide [Victoza 2-Kvng] 0.6 mg SQ DAILY 07/31/18 07/31/18 Topiramate [Topamax] 100 mg PO DAILY 07/31/18 07/31/18 metFORMIN HCL [Glucophage] 1,000 mg PO BID 07/31/18 07/31/18 Previous Rx's Medication Instructions Recorded Cephalexin [Keflex] 500 mg PO Q6HR 7 Days #28 cap 08/07/19 Nystatin 100,000Unit/gm Cream 1 applic TOPICAL BID 7 Days #15 08/07/19 [Mycostatin Cream] gram Allergies Allergy/AdvReac Type Severity Reaction Status Date / Time tetanus and diphtheria Allergy Unknown Verified 08/07/19 19:18 toxoids [tetanus & diphtheria toxoids] Review of Systems ROS Other: All systems not noted in ROS Statement are negative. <Bridgett Lee - Last Filed: 08/09/19 02:37> ROS Other: All systems not noted in ROS Statement are negative. <Deon Johnsonah Karly - Last Filed: 08/10/19 20:22> ROS Statement: Those systems with pertinent positive or pertinent negative responses have been documented in the HPI. Past Medical History Past Medical History: Diabetes Mellitus, Hypertension, Memory Impairment, Osteoarthritis (OA), Sleep Apnea/CPAP/BIPAP Additional Past Medical History / Comment(s): carpal tunnel, back pain, left arm & leg pain, can't lift left arm up, ? palsy in side of face in past, frequent migraine headaches History of Any Multi-Drug Resistant Organisms: None Reported Past Surgical History: Tubal Ligation Past Anesthesia/Blood Transfusion Reactions: No Reported Reaction Past Psychological History: Depression, Schizophrenia Smoking Status: Never smoker <Bridgett Lee Aubrie - Last Filed: 08/09/19 02:37> General Exam Limitations: no limitations <Bridgett Lee - Last Filed: 08/09/19 02:37> - General Exam Comments Initial Comments: GENERAL: Well-appearing, well-nourished and in no acute distress. HEAD: Atraumatic, normocephalic. EYES: Pupils equal round and reactive to light, extraocular movements intact, sclera anicteric, conjunctiva are normal. ENT: TMs normal, nares patent, oropharynx clear without exudates. Moist mucous membranes. NECK: Normal range of motion, supple without lymphadenopathy or JVD. LUNGS: Breath sounds clear to auscultation bilaterally and equal. No wheezes rales or rhonchi. HEART: Regular rate and rhythm without murmurs, rubs or gallops. ABDOMEN: Patient has some surrounding erythema around her umbilicus as well as a foul odor. She does have some tenderness with palpation around the same area. There appears to be no fluctuance or induration indicating an abscess. Soft, normoactive bowel sounds. No guarding, no rebound. No masses appreciated. : Deferred EXTREMITIES: Normal range of motion, no pitting or edema. No clubbing or cyanosis. NEUROLOGICAL: Cranial nerves II through XII grossly intact. Normal speech, normal gait. PSYCH: Normal mood, normal affect. SKIN: Warm, Dry, normal turgor, no rashes or lesions noted. (Bridgett Lee) Course Vital Signs 08/07/19 08/07/19 19:14 22:53 Temperature 97.9 F 97.6 F Pulse Rate 112 H 80 Respiratory 20 16 Rate Blood Pressure 178/91 130/67 O2 Sat by Pulse 99 98 Oximetry Medical Decision Making - Lab Data Result diagrams: 08/07/19 19:52 08/07/19 19:52 <Bridgett Lee - Last Filed: 08/09/19 02:37> - Lab Data Result diagrams: 08/07/19 19:52 08/07/19 19:52 <Padmini Johnson - Last Filed: 08/10/19 20:22> - Medical Decision Making She is a 48-year-old female here for erythema and pain around her umbilicus. Ultrasound reveals no evidence of a abscess. She appears to be superficial nature. Patient will be started on antibiotic for cellulitis as well as topical nystatin. Patient's glucose was 400, she is aware and states her sugars always high. Lactic was 3.4, most likely related to elevated glucose. Liter of fluids given. Vitals are stable. Patient is stable for discharge in agreement with this plan of care. She'll follow-up with her PCP. Case discussed with Dr. Johnson. (Bridgett Lee) I was available for consultation in the emergency department. The history and physical exam were done by the midlevel provider. I was consulted for this patients care. I reviewed the case with the midlevel provider and based on their presentation of the patient, I agree with the assessment, medical decision making and plan of care as documented. Strict glucose control and return parameters are discussed with the patient. Chart was dictated using Mitro dictation software. Attempts were made to correct any dictation errors however some typographical errors may persist. Patient was seen during a national state of emergency due to the Covid-19 pandemic. (Padmini Johnson) - Lab Data Lab Results 08/07/19 08/07/19 08/07/19 Range/Units 19:52 19:52 19:52 WBC 9.0 (3.8-10.6) k/uL RBC 5.53 H (3.80-5.40) m/uL Hgb 16.0 (11.4-16.0) gm/dL Hct 49.2 H (34.0-46.0) % MCV 89.1 (80.0-100.0) fL MCH 28.9 (25.0-35.0) pg MCHC 32.4 (31.0-37.0) g/dL RDW 13.1 (11.5-15.5) % Plt Count 240 (150-450) k/uL Neutrophils % 67 % Lymphocytes % 26 % Monocytes % 3 % Eosinophils % 2 % Basophils % 1 % Neutrophils # 6.0 (1.3-7.7) k/uL Lymphocytes # 2.4 (1.0-4.8) k/uL Monocytes # 0.2 (0-1.0) k/uL Eosinophils # 0.2 (0-0.7) k/uL Basophils # 0.1 (0-0.2) k/uL Sodium 133 L (137-145) mmol/L Potassium 4.0 (3.5-5.1) mmol/L Chloride 98 (98-107) mmol/L Carbon Dioxide 23 (22-30) mmol/L Anion Gap 12 mmol/L BUN 11 (7-17) mg/dL Creatinine 0.55 (0.52-1.04) mg/dL Est GFR (CKD-EPI)AfAm >90 (>60 ml/min/1.73 sqM) Est GFR (CKD-EPI)NonAf >90 (>60 ml/min/1.73 sqM) Glucose 411 H (74-99) mg/dL Lactic Ac Sepsis Rflx Plasma Lactic Acid Theron 3.4 H* (0.7-2.0) mmol/L Calcium 9.8 (8.4-10.2) mg/dL Total Bilirubin 0.4 (0.2-1.3) mg/dL AST 27 (14-36) U/L ALT 25 (4-34) U/L Alkaline Phosphatase 120 (38-126) U/L Total Protein 7.4 (6.3-8.2) g/dL Albumin 4.7 (3.5-5.0) g/dL 05/06/20 Range/Units 20:36 WBC (3.8-10.6) k/uL RBC (3.80-5.40) m/uL Hgb (11.4-16.0) gm/dL Hct (34.0-46.0) % MCV (80.0-100.0) fL MCH (25.0-35.0) pg MCHC (31.0-37.0) g/dL RDW (11.5-15.5) % Plt Count (150-450) k/uL Neutrophils % % Lymphocytes % % Monocytes % % Eosinophils % % Basophils % % Neutrophils # (1.3-7.7) k/uL Lymphocytes # (1.0-4.8) k/uL Monocytes # (0-1.0) k/uL Eosinophils # (0-0.7) k/uL Basophils # (0-0.2) k/uL Sodium (137-145) mmol/L Potassium (3.5-5.1) mmol/L Chloride (98-107) mmol/L Carbon Dioxide (22-30) mmol/L Anion Gap mmol/L BUN (7-17) mg/dL Creatinine (0.52-1.04) mg/dL Est GFR (CKD-EPI)AfAm (>60 ml/min/1.73 sqM) Est GFR (CKD-EPI)NonAf (>60 ml/min/1.73 sqM) Glucose (74-99) mg/dL Lactic Ac Sepsis Rflx Y Plasma Lactic Acid Theron (0.7-2.0) mmol/L Calcium (8.4-10.2) mg/dL Total Bilirubin (0.2-1.3) mg/dL AST (14-36) U/L ALT (4-34) U/L Alkaline Phosphatase (38-126) U/L Total Protein (6.3-8.2) g/dL Albumin (3.5-5.0) g/dL Disposition Is patient prescribed a controlled substance at d/c from ED?: No <Bridgett Lee - Last Filed: 08/09/19 02:37> <Padmini Johnson - Last Filed: 08/10/19 20:22> Clinical Impression: Cellulitis of umbilicus, Candidiasis of skin Disposition: HOME SELF-CARE Condition: Stable Instructions (If sedation given, give patient instructions): Cellulitis (ED) Additional Instructions: Please return to the Emergency Department if symptoms worsen or any other concerns. Take antibiotic as prescribed. Use topical ointment as prescribed. Keep area clean and dry. Follow-up with PCP. Prescriptions: Cephalexin [Keflex] 500 mg PO Q6HR 7 Days #28 cap Nystatin 100,000Unit/gm Cream [Mycostatin Cream] 1 applic TOPICAL BID 7 Days #15 gram Referrals: Felipe Thurman MD [Primary Care Provider] - 1-2 days
[2019-08-07] MEDS ORDERED: cefTRIAXone IN SWFI 1,000 MG/10 ML SYRINGE IVP STA (22:09)
[2019-08-07 22:54] VITALS: BP 130/67; PULSE 80; RESP 16; TEMP 97.6
== END 2019-08-07 23:05 | disposition home or self-care (01) ==
LOC: EC 19:13
DX: L03.116 Cellulitis of left lower limb (principal); B37.2 Candidiasis of skin and nail; E11.9 Type 2 diabetes mellitus without complications; R74.0 Nonspecific elevation of levels of transaminase and lactic acid dehydrogenase [LDH]; I10 Essential (primary) hypertension; G43.909 Migraine, unspecified, not intractable, without status migrainosus; F32.9 Major depressive disorder, single episode, unspecified; F20.9 Schizophrenia, unspecified; G47.30 Sleep apnea, unspecified; Z79.899 Other long term (current) drug therapy; Z79.4 Long term (current) use of insulin; Z88.7 Allergy status to serum and vaccine; Z99.89 Dependence on other enabling machines and devices
CPT/HCPCS: 36415; 76705; 80053; 83605; 85025; 96360; 99284

== ENCOUNTER 2019-10-18 21:12 | Emergency (ER) | payer OTHER ==
[2019-10-18] MEDS ORDERED: MORPHINE SULFATE 4 MG/ML SYRINGE IV STA (21:40)
[2019-10-18] MEDS ORDERED: SODIUM CHLORIDE 0.9% 1,000 ML IV STA (21:40)
--- NOTE | 2019-10-18 21:44 | ED ---
Abdominal Pain HPI - General Chief Complaint: Abdominal Pain Stated Complaint: Abdominal Pain Time Seen by Provider: 10/18/19 21:30 Source: patient Mode of arrival: ambulatory Limitations: no limitations - History of Present Illness Initial Comments: Patient is a 49-year-old female presenting to emergency Department with a chief complaint of abdominal pain. Patient reports pain started about 2 days ago after she woke up. Patient states the pain is located in the right upper quadrant. States the pain comes and goes and is somewhat dull in nature. States the pain is not related to by mouth intake. Denies any history or family history of gallstones. Denies any radiation pain. States the pain is exacerbated with left and right rotation and whenever she is attempting to stand up from a laying position. No chest pain or shortness of breath. Denies any fevers night sweats or chills. Denies urinary or vaginal symptoms denies a, hematochezia or melena. She does have history of diabetes. Patient states she does take long-lasting short-acting insulin, however her blood sugar levels are typically in the 300s. States she is attempting to see a different primary care physician. Stay she does not drink alcohol. - Related Data Home Medications Medication Instructions Recorded Confirmed ARIPiprazole [Abilify] 15 mg PO HS 07/31/18 07/31/18 Atenolol [Tenormin] 100 mg PO DAILY 07/31/18 08/01/18 Atenolol/Chlorthalidone 1 each PO DAILY 07/31/18 08/01/18 [Atenolol-Chlorthalidone 50-25] Benazepril HCl [Lotensin] 40 mg PO BID 07/31/18 07/31/18 Chlorthalidone 50 mg PO DAILY 07/31/18 07/31/18 INSULIN ASPART (NovoLOG) [NovoLOG 80 unit SQ HS 07/31/18 07/31/18 (formulary)] INSULIN ASPART (NovoLOG) [NovoLOG 100 unit SQ QAM 07/31/18 07/31/18 (formulary)] Liraglutide [Victoza 2-Kvng] 0.6 mg SQ DAILY 07/31/18 07/31/18 Topiramate [Topamax] 100 mg PO DAILY 07/31/18 07/31/18 metFORMIN HCL [Glucophage] 1,000 mg PO BID 07/31/18 07/31/18 Previous Rx's Medication Instructions Recorded Cephalexin [Keflex] 500 mg PO Q6HR 7 Days #28 cap 08/07/19 Nystatin 100,000Unit/gm Cream 1 applic TOPICAL BID 7 Days #15 08/07/19 [Mycostatin Cream] gram Allergies Allergy/AdvReac Type Severity Reaction Status Date / Time tetanus and diphtheria Allergy Unknown Verified 10/18/19 21:27 toxoids [tetanus & diphtheria toxoids] Review of Systems ROS Statement: Those systems with pertinent positive or pertinent negative responses have been documented in the HPI. ROS Other: All systems not noted in ROS Statement are negative. Past Medical History Past Medical History: Diabetes Mellitus, Hypertension, Memory Impairment, Osteoarthritis (OA), Sleep Apnea/CPAP/BIPAP Additional Past Medical History / Comment(s): carpal tunnel, back pain, left arm & leg pain, can't lift left arm up, ? palsy in side of face in past, frequent migraine headaches History of Any Multi-Drug Resistant Organisms: None Reported Past Surgical History: Tubal Ligation Past Anesthesia/Blood Transfusion Reactions: No Reported Reaction Past Psychological History: Depression, Schizophrenia Smoking Status: Never smoker Past Alcohol Use History: None Reported Past Drug Use History: None Reported General Exam Limitations: no limitations General appearance: alert, in no apparent distress, obese Head exam: Present: atraumatic, normocephalic, normal inspection Eye exam: Present: normal appearance, PERRL, EOMI. Absent: scleral icterus, conjunctival injection, nystagmus ENT exam: Present: normal exam, normal oropharynx, mucous membranes moist, TM's normal bilaterally, normal external ear exam Neck exam: Present: normal inspection, full ROM. Absent: tenderness Respiratory exam: Present: normal lung sounds bilaterally. Absent: respiratory distress, wheezes Cardiovascular Exam: Present: regular rate, normal rhythm, normal heart sounds GI/Abdominal exam: Present: soft, tenderness (Positive Grant sign. Upper quadrant.). Absent: distended, guarding, rebound, rigid Extremities exam: Present: normal inspection, full ROM. Absent: tenderness Back exam: Present: normal inspection, full ROM, CVA tenderness (R) (Mild right CVA tenderness). Absent: tenderness, CVA tenderness (L) Neurological exam: Present: alert, oriented X3, normal gait Psychiatric exam: Present: normal affect, normal mood Skin exam: Present: warm, dry, intact, normal color Course Vital Signs 10/18/19 10/19/19 21:25 00:52 Temperature 98.0 F 98 F Pulse Rate 100 90 Respiratory 20 18 Rate Blood Pressure 163/90 138/74 O2 Sat by Pulse 98 97 Oximetry Medical Decision Making - Medical Decision Making Patient is a 49-year-old female presenting to the emergency department with a chief complaint of abdominal pain. On initial evaluation patient appears to have right upper quadrant abdominal pain. Positive Grant sign. Pain does not appear to be related to by mouth intake is only exacerbated with [id number] rotation. Right upper quadrant ultrasound reveals no signs of cholelithiasis or cholecystitis. No dilation of the biliary ducts. On reevaluation patient stated some of the pain has progressed to repair umbilical region. CT of abdomen and pelvis obtained reveals to sigmoid diverticula but no diverticulosis. Fatty infiltration of the liver. EKG reveals sinus rhythm with sinus arrhythmia. Patient was given fluids and in the analgesia in the emergency department. UA does show positive glucose and ketones. Anion gap is only 10. No nausea or vomiting. She discharged with Tylenol 3 starter pack and advised not to drive or operate heavy machinery when taking the medication. Patient advised to follow-up with a primary care. Return parameters were thoroughly discussed with patient is understanding and agreeable. Case discussed with physician. - Lab Data Result diagrams: 10/18/19 21:47 10/18/19 21:47 Lab Results 10/18/19 10/18/19 10/18/19 Range/Units 21:47 21:47 21:47 WBC 8.1 (3.8-10.6) k/uL RBC 5.08 (3.80-5.40) m/uL Hgb 15.0 (11.4-16.0) gm/dL Hct 43.9 (34.0-46.0) % MCV 86.3 (80.0-100.0) fL MCH 29.4 (25.0-35.0) pg MCHC 34.1 (31.0-37.0) g/dL RDW 12.6 (11.5-15.5) % Plt Count 222 (150-450) k/uL Neutrophils % 55 % Lymphocytes % 34 % Monocytes % 4 % Eosinophils % 4 % Basophils % 1 % Neutrophils # 4.5 (1.3-7.7) k/uL Lymphocytes # 2.7 (1.0-4.8) k/uL Monocytes # 0.4 (0-1.0) k/uL Eosinophils # 0.4 (0-0.7) k/uL Basophils # 0.0 (0-0.2) k/uL Sodium (137-145) mmol/L Potassium (3.5-5.1) mmol/L Chloride (98-107) mmol/L Carbon Dioxide (22-30) mmol/L Anion Gap mmol/L BUN (7-17) mg/dL Creatinine (0.52-1.04) mg/dL Est GFR (CKD-EPI)AfAm (>60 ml/min/1.73 sqM) Est GFR (CKD-EPI)NonAf (>60 ml/min/1.73 sqM) Glucose (74-99) mg/dL Calcium (8.4-10.2) mg/dL Total Bilirubin (0.2-1.3) mg/dL AST (14-36) U/L ALT (4-34) U/L Alkaline Phosphatase (38-126) U/L Total Protein (6.3-8.2) g/dL Albumin (3.5-5.0) g/dL Amylase 200 H (30-110) U/L Lipase 125 (23-300) U/L Urine Color Light Yellow Urine Appearance Clear (Clear) Urine pH 5.5 (5.0-8.0) Ur Specific [place] 1.038 H (1.001-1.035) Urine Protein Negative (Negative) Urine Glucose (UA) 4+ H (Negative) Urine Ketones 1+ H (Negative) Urine Blood Negative (Negative) Urine Nitrite Negative (Negative) Urine Bilirubin Negative (Negative) Urine Urobilinogen <2.0 (<2.0) mg/dL Ur Leukocyte Esterase Negative (Negative) 10/18/19 Range/Units 21:47 WBC (3.8-10.6) k/uL RBC (3.80-5.40) m/uL Hgb (11.4-16.0) gm/dL Hct (34.0-46.0) % MCV (80.0-100.0) fL MCH (25.0-35.0) pg MCHC (31.0-37.0) g/dL RDW (11.5-15.5) % Plt Count (150-450) k/uL Neutrophils % % Lymphocytes % % Monocytes % % Eosinophils % % Basophils % % Neutrophils # (1.3-7.7) k/uL Lymphocytes # (1.0-4.8) k/uL Monocytes # (0-1.0) k/uL Eosinophils # (0-0.7) k/uL Basophils # (0-0.2) k/uL Sodium 134 L (137-145) mmol/L Potassium 3.9 (3.5-5.1) mmol/L Chloride 104 (98-107) mmol/L Carbon Dioxide 20 L (22-30) mmol/L Anion Gap 10 mmol/L BUN 14 (7-17) mg/dL Creatinine 0.54 (0.52-1.04) mg/dL Est GFR (CKD-EPI)AfAm >90 (>60 ml/min/1.73 sqM) Est GFR (CKD-EPI)NonAf >90 (>60 ml/min/1.73 sqM) Glucose 307 H (74-99) mg/dL Calcium 9.1 (8.4-10.2) mg/dL Total Bilirubin 0.5 (0.2-1.3) mg/dL AST 30 (14-36) U/L ALT 28 (4-34) U/L Alkaline Phosphatase 134 H (38-126) U/L Total Protein 7.0 (6.3-8.2) g/dL Albumin 4.4 (3.5-5.0) g/dL Amylase (30-110) U/L Lipase (23-300) U/L Urine Color Urine Appearance (Clear) Urine pH (5.0-8.0) Ur Specific [place] (1.001-1.035) Urine Protein (Negative) Urine Glucose (UA) (Negative) Urine Ketones (Negative) Urine Blood (Negative) Urine Nitrite (Negative) Urine Bilirubin (Negative) Urine Urobilinogen (<2.0) mg/dL Ur Leukocyte Esterase (Negative) Disposition Clinical Impression: Right upper quadrant abdominal pain Disposition: HOME SELF-CARE Condition: Stable Instructions (If sedation given, give patient instructions): Abdominal Pain (ED) Additional Instructions: Follow-up with her primary care. Return to emergency department if symptoms worsen. Is patient prescribed a controlled substance at d/c from ED?: No Referrals: Felipe Thurman MD [Primary Care Provider] - 1-2 days Time of Disposition: 00:45
[2019-10-18 21:58] LABS: Basophils % (A) 1 %; Eosinophils # (A) 0.4 k/uL (0-0.7); Eosinophils % (A) 4 %; HCT 43.9 % (34.0-46.0); Lymphocytes # (A) 2.7 k/uL (1.0-4.8); Lymphocytes % (A) 34 %; MCH 29.4 pg (25.0-35.0); MCHC 34.1 g/dL (31.0-37.0); MCV 86.3 fL (80.0-100.0); Mean Platelet Volume 8.5; Monocytes # (A) 0.4 k/uL (0-1.0); Monocytes % (A) 4 %; Neutrophils # (A) 4.5 k/uL (1.3-7.7); Neutrophils % (A) 55 %; Platelet Count 222 k/uL (150-450); RBC 5.08 m/uL (3.80-5.40); RDW 12.6 % (11.5-15.5); WBC 8.1 k/uL (3.8-10.6)
[2019-10-18 22:05] LABS: Appearance,Urine Clear (Clear); Bilirubin,Urine Negative (Negative); Blood,Urine Negative (Negative); Color,Urine Light Yellow; Glucose,Urine (UA) 4+ (Negative); Ketones,Urine 1+ (Negative); Leukocyte Esterase,Urine Negative (Negative); Nitrite,Urine Negative (Negative); PH, Urine 5.5 (5.0-8.0); Protein,Urine Negative (Negative); Specific Gravity,Urine 1.038 (1.001-1.035); Urobilinogen,Urine <2.0 mg/dL (<2.0)
--- NOTE | 2019-10-18 22:17 | US ---
EXAMINATION TYPE: US abdomen limited DATE OF EXAM: 10/18/2019 COMPARISON: NONE CLINICAL HISTORY: RUQ abdominal pain, gallstones suspeced. EXAM MEASUREMENTS: Liver Length: 19.6 cm Gallbladder Wall: 0.3 cm CBD: 0.4 cm Right Kidney: 14.8 x 5.9 x 5.7 cm Technically difficult study due to patient body habitus and overlying bowel gas. Pancreas: Obscured by bowel gas Liver: difficult to penetrate, enlarged. Gallbladder: appears contracted, no stones seen. Evidence for sonographic Grant's sign: patient very tender everywhere. CBD: wnl Right Kidney: No hydronephrosis or masses seen IMPRESSION: No gallstones or dilated ducts. There is probably some fatty infiltration of the liver.
[2019-10-18 22:30] LABS: Amylase 200 U/L (30-110)
[2019-10-18 22:54] LABS: ALT 28 U/L (4-34); AST 30 U/L (14-36); African American GFR (CKD) >90 (>60 ml/min/1.73 sqM); Albumin 4.4 g/dL (3.5-5.0); Alkaline Phosphatase 134 U/L (38-126); Anion Gap 10 mmol/L; Blood Urea Nitrogen 14 mg/dL (7-17); Calcium 9.1 mg/dL (8.4-10.2); Carbon Dioxide 20 mmol/L (22-30); Chloride 104 mmol/L (98-107); Glucose 307 mg/dL (74-99); Non-African American GFR(CKD) >90 (>60 ml/min/1.73 sqM); Potassium 3.9 mmol/L (3.5-5.1); Sodium 134 mmol/L (137-145); Total Bilirubin 0.5 mg/dL (0.2-1.3)
--- NOTE | 2019-10-18 23:40 | CT ---
EXAMINATION TYPE: CT abdomen pelvis w con DATE OF EXAM: 10/18/2019 COMPARISON: None HISTORY: abd pain x3days CT DLP: 2226.3 mGycm Automated exposure control for dose reduction was used. CONTRAST: Performed with IV Contrast, patient injected with 100 mL of Isovue 300. Images obtained from the diaphragm to the floor the pelvis with IV contrast. Lung bases are clear. There is no pleural effusion. Heart size is normal. There is no pericardial eff usion. There is diffuse fatty infiltration of the liver. Spleen stomach pancreas gallbladder appear n ormal. Bile ducts are not dilated. There is no adrenal mass. Kidneys have normal size and contour. There is no hydronephrosis. Ureters a re not dilated. Kidneys show satisfactory excretion. There is no evidence of retroperitoneal adenopat hy. Bladder distends smoothly. There is no inguinal hernia. There is no free fluid in the pelvis. [place] yusef is retroverted. There are a few sigmoid diverticula. There is no sign of diverticulitis. Appendix is medial and appears normal. There is no mesenteric edema. There is no ascites or free air. There is no bowel obstruction. Lumbar vertebra have normal spacing and alignment. Posterior elements are intact. The bony pelvis sarah ears intact. IMPRESSION: There are a few sigmoid diverticula. No sign of diverticulitis. Normal appendix. No sign of acute abd omen and pelvis. Fatty infiltration of the liver.
[2019-10-19] MEDS ORDERED: ACET/COD 300 MG/30 MG STARTER PACK 6 TAB BTL PO STA (00:43)
[2019-10-19 00:53] VITALS: BP 138/74; PULSE 90; RESP 18; TEMP 98
== END 2019-10-19 00:53 | disposition home or self-care (01) ==
LOC: EC 21:12
DX: R10.11 Right upper quadrant pain (principal); K57.30 Diverticulosis of large intestine without perforation or abscess without bleeding; K76.0 Fatty (change of) liver, not elsewhere classified; I10 Essential (primary) hypertension; G47.30 Sleep apnea, unspecified; E11.9 Type 2 diabetes mellitus without complications; Z79.4 Long term (current) use of insulin; Z79.899 Other long term (current) drug therapy; Z88.7 Allergy status to serum and vaccine; Z99.89 Dependence on other enabling machines and devices
CPT/HCPCS: 36415; 80053; 82150; 83690; 85025; 81003; 76705; 74177; 99284; 96374; 96361 ×3; J2270; Q9967; 93005

== ENCOUNTER 2019-10-21 00:26 | Observation (INO) | payer OTHER ==
[2019-10-21 00:55] LABS: Basophils # (A) 0.1 k/uL (0-0.2); Basophils % (A) 1 %; Eosinophils # (A) 0.3 k/uL (0-0.7); Eosinophils % (A) 5 %; HGB 14.2 gm/dL (11.4-16.0); Lymphocytes # (A) 2.7 k/uL (1.0-4.8); Lymphocytes % (A) 38 %; MCH 28.5 pg (25.0-35.0); MCHC 33.1 g/dL (31.0-37.0); MCV 86.1 fL (80.0-100.0); Mean Platelet Volume 8.4; Monocytes # (A) 0.3 k/uL (0-1.0); Monocytes % (A) 5 %; Neutrophils # (A) 3.6 k/uL (1.3-7.7); Neutrophils % (A) 50 %; Platelet Count 209 k/uL (150-450); RDW 12.5 % (11.5-15.5); WBC 7.2 k/uL (3.8-10.6)
[2019-10-21 01:06] LABS: ALT 31 U/L (4-34); AST 31 U/L (14-36); African American GFR (CKD) >90 (>60 ml/min/1.73 sqM); Albumin 4.3 g/dL (3.5-5.0); Alkaline Phosphatase 142 U/L (38-126); Anion Gap 10 mmol/L; Blood Urea Nitrogen 9 mg/dL (7-17); Calcium 9.2 mg/dL (8.4-10.2); Carbon Dioxide 21 mmol/L (22-30); Chloride 102 mmol/L (98-107); Glucose 384 mg/dL (74-99); Magnesium 1.7 mg/dL (1.6-2.3); Non-African American GFR(CKD) >90 (>60 ml/min/1.73 sqM); Potassium 3.9 mmol/L (3.5-5.1); Sodium 133 mmol/L (137-145); Total Bilirubin 0.5 mg/dL (0.2-1.3); Total Protein 6.7 g/dL (6.3-8.2)
--- NOTE | 2019-10-21 01:07 | ED ---
General Adult HPI - General Chief complaint: Chest Pain Stated complaint: Chest Pain Time Seen by Provider: 10/21/19 00:36 Source: patient, RN notes reviewed, old records reviewed Mode of arrival: ambulatory Limitations: no limitations - History of Present Illness Initial comments: 49-year-old female presenting for evaluation of chest pain. Pain is been present for approximately 4 days. She describes it as substernal and right- sided chest pain. She is able to alleviate the exact location of her pain well. She describes it as worse with deep inspiration. She does report there is pain with movement of the right breast. She denies any skin changes to the breast. She denies fever. She denies significant cough or dyspnea. Denies any left sadie ed chest pain. She was seen in the emergency department with right sided upper abdominal pain several days ago. Her pain is now localized to the right side of her chest. No cough or fever. - Related Data Home Medications Medication Instructions Recorded Confirmed ARIPiprazole [Abilify] 15 mg PO HS 07/31/18 07/31/18 Atenolol [Tenormin] 100 mg PO DAILY 07/31/18 08/01/18 Atenolol/Chlorthalidone 1 each PO DAILY 07/31/18 08/01/18 [Atenolol-Chlorthalidone 50-25] Benazepril HCl [Lotensin] 40 mg PO BID 07/31/18 07/31/18 Chlorthalidone 50 mg PO DAILY 07/31/18 07/31/18 INSULIN ASPART (NovoLOG) [NovoLOG 80 unit SQ HS 07/31/18 07/31/18 (formulary)] INSULIN ASPART (NovoLOG) [NovoLOG 100 unit SQ QAM 07/31/18 07/31/18 (formulary)] Liraglutide [Victoza 2-Kvng] 0.6 mg SQ DAILY 07/31/18 07/31/18 Topiramate [Topamax] 100 mg PO DAILY 07/31/18 07/31/18 metFORMIN HCL [Glucophage] 1,000 mg PO BID 07/31/18 07/31/18 Previous Rx's Medication Instructions Recorded Cephalexin [Keflex] 500 mg PO Q6HR 7 Days #28 cap 08/07/19 Nystatin 100,000Unit/gm Cream 1 applic TOPICAL BID 7 Days #15 08/07/19 [Mycostatin Cream] gram Allergies Allergy/AdvReac Type Severity Reaction Status Date / Time tetanus and diphtheria Allergy Unknown Verified 10/21/19 00:32 toxoids [tetanus & diphtheria toxoids] Review of Systems ROS Statement: Those systems with pertinent positive or pertinent negative responses have been documented in the HPI. ROS Other: All systems not noted in ROS Statement are negative. Past Medical History Past Medical History: Diabetes Mellitus, Hypertension, Memory Impairment, Osteoarthritis (OA), Sleep Apnea/CPAP/BIPAP Additional Past Medical History / Comment(s): carpal tunnel, back pain, left arm & leg pain, can't lift left arm up, ? palsy in side of face in past, frequent migraine headaches History of Any Multi-Drug Resistant Organisms: None Reported Past Surgical History: Tubal Ligation Past Anesthesia/Blood Transfusion Reactions: No Reported Reaction Past Psychological History: Depression, Schizophrenia Smoking Status: Never smoker Past Alcohol Use History: None Reported Past Drug Use History: None Reported General Exam Limitations: no limitations General appearance: alert, in no apparent distress Head exam: Present: atraumatic, normocephalic Eye exam: Present: normal appearance, PERRL ENT exam: Present: normal exam Neck exam: Present: normal inspection. Absent: tenderness, meningismus Respiratory exam: Present: normal lung sounds bilaterally, chest wall tenderness (Chest wall tenderness as well as tenderness in the right breast, there is no skin changes, no induration, no erythema, no fluctuance). Absent: respiratory distress, wheezes, rales Cardiovascular Exam: Present: regular rate, normal rhythm GI/Abdominal exam: Present: soft. Absent: distended, tenderness, guarding, rebound Extremities exam: Present: normal inspection, normal capillary refill. Absent: pedal edema, calf tenderness Neurological exam: Present: alert, oriented X3, CN II-XII intact. Absent: motor sensory deficit Psychiatric exam: Present: normal affect, normal mood Skin exam: Present: warm, dry, intact. Absent: cyanosis, diaphoretic, erythema Course Vital Signs 10/21/19 10/21/19 00:28 00:53 Temperature 98.3 F Pulse Rate 88 Pulse Rate [ 90 Iron[employer] App[employer]ice ] Respiratory 24 Rate Blood Pressure 165/83 O2 Sat by Pulse 98 Oximetry EKG Findings - EKG Comments: EKG Findings:: EKG: Normal sinus rhythm, LVH, rate of 89, KS interval 142, QRS duration 80, QTC 433, no ST segment elevation. Medical Decision Making - Medical Decision Making 49-year-old female presenting chest pain described as severe pain radiating to her right arm. Pain is substernal and right sided. Predominantly atypical features. Patient's is presenting emergency department for a reevaluation of her symptoms. She has CT of the abdomen pelvis as well as a right upper quadrant ultrasound on previous ER visit. She states his pain is now both substernal and right upper chest. EKG is sinus rhythm no ST segment elevation. Chest x-ray is clear with no focal pneumonia, no acute findings. She has a normal CBC, CMP shows hyperglycemia with normal electrolytes, negative troponin, negative d-dimer. Given this patient's risk factors she will be kept in observation for serial cardiac enzymes, telemetry, cardiology consultation. Case is discussed with Dr. Thurman who will admit. - Lab Data Result diagrams: 10/21/19 00:52 10/21/19 00:52 Lab Results 10/21/19 10/21/19 10/21/19 Range/Units 00:52 00:52 00:52 WBC 7.2 (3.8-10.6) k/uL RBC 5.00 (3.80-5.40) m/uL Hgb 14.2 (11.4-16.0) gm/dL Hct 43.0 (34.0-46.0) % MCV 86.1 (80.0-100.0) fL MCH 28.5 (25.0-35.0) pg MCHC 33.1 (31.0-37.0) g/dL RDW 12.5 (11.5-15.5) % Plt Count 209 (150-450) k/uL Neutrophils % 50 % Lymphocytes % 38 % Monocytes % 5 % Eosinophils % 5 % Basophils % 1 % Neutrophils # 3.6 (1.3-7.7) k/uL Lymphocytes # 2.7 (1.0-4.8) k/uL Monocytes # 0.3 (0-1.0) k/uL Eosinophils # 0.3 (0-0.7) k/uL Basophils # 0.1 (0-0.2) k/uL PT 9.4 (9.0-12.0) sec INR 0.9 (<1.2) APTT 20.4 L (22.0-30.0) sec D-Dimer 0.44 (<0.60) mg/L FEU Sodium 133 L (137-145) mmol/L Potassium 3.9 (3.5-5.1) mmol/L Chloride 102 (98-107) mmol/L Carbon Dioxide 21 L (22-30) mmol/L Anion Gap 10 mmol/L BUN 9 (7-17) mg/dL Creatinine 0.31 L (0.52-1.04) mg/dL Est GFR (CKD-EPI)AfAm >90 (>60 ml/min/1.73 sqM) Est GFR (CKD-EPI)NonAf >90 (>60 ml/min/1.73 sqM) Glucose 384 H (74-99) mg/dL Calcium 9.2 (8.4-10.2) mg/dL Magnesium 1.7 (1.6-2.3) mg/dL Total Bilirubin 0.5 (0.2-1.3) mg/dL AST 31 (14-36) U/L ALT 31 (4-34) U/L Alkaline Phosphatase 142 H (38-126) U/L Troponin I (0.000-0.034) ng/mL Total Protein 6.7 (6.3-8.2) g/dL Albumin 4.3 (3.5-5.0) g/dL Lipase 71 (23-300) U/L 10/21/19 Range/Units 00:52 WBC (3.8-10.6) k/uL RBC (3.80-5.40) m/uL Hgb (11.4-16.0) gm/dL Hct (34.0-46.0) % MCV (80.0-100.0) fL MCH (25.0-35.0) pg MCHC (31.0-37.0) g/dL RDW (11.5-15.5) % Plt Count (150-450) k/uL Neutrophils % % Lymphocytes % % Monocytes % % Eosinophils % % Basophils % % Neutrophils # (1.3-7.7) k/uL Lymphocytes # (1.0-4.8) k/uL Monocytes # (0-1.0) k/uL Eosinophils # (0-0.7) k/uL Basophils # (0-0.2) k/uL PT (9.0-12.0) sec INR (<1.2) APTT (22.0-30.0) sec D-Dimer (<0.60) mg/L FEU Sodium (137-145) mmol/L Potassium (3.5-5.1) mmol/L Chloride (98-107) mmol/L Carbon Dioxide (22-30) mmol/L Anion Gap mmol/L BUN (7-17) mg/dL Creatinine (0.52-1.04) mg/dL Est GFR (CKD-EPI)AfAm (>60 ml/min/1.73 sqM) Est GFR (CKD-EPI)NonAf (>60 ml/min/1.73 sqM) Glucose (74-99) mg/dL Calcium (8.4-10.2) mg/dL Magnesium (1.6-2.3) mg/dL Total Bilirubin (0.2-1.3) mg/dL AST (14-36) U/L ALT (4-34) U/L Alkaline Phosphatase (38-126) U/L Troponin I <0.012 (0.000-0.034) ng/mL Total Protein (6.3-8.2) g/dL Albumin (3.5-5.0) g/dL Lipase (23-300) U/L Disposition Clinical Impression: Chest pain Disposition: ADMITTED IP TO THIS [facility] Condition: Stable Is patient prescribed a controlled substance at d/c from ED?: No Referrals: Felipe Thurman MD [Primary Care Provider] - 1-2 days Decision to Admit Reason: Admit from EC Decision Date: 10/21/19 Decision Time: 01:53
[2019-10-21 01:16] LABS: D-Dimer 0.44 mg/L FEU (<0.60); INR 0.9 (<1.2); Prothrombin Time 9.4 sec (9.0-12.0)
--- NOTE | 2019-10-21 01:19 | XR ---
EXAMINATION TYPE: XR chest 2V DATE OF EXAM: 10/21/2019 COMPARISON: NONE HISTORY: Chest pain TECHNIQUE: 2 views FINDINGS: Heart and mediastinum are normal. Lungs are clear. Diaphragm is normal. Bony thorax appears normal. Pulmonary vascularity is normal. There are chest leads. IMPRESSION: Normal chest.
[2019-10-21 01:21] LABS: Partial Thromboplastin Time 20.4 sec (22.0-30.0)
[2019-10-21] MEDS ORDERED: SODIUM CHLORIDE 0.9% 500 ML 500 ML IV ONE (01:44)
[2019-10-21] MEDS ORDERED: MORPHINE SULFATE 4 MG/ML SYRINGE IVP STA (01:44)
[2019-10-21] MEDS ORDERED: ASPIRIN 325 MG TAB PO STA (01:44)
[2019-10-21] MEDS ORDERED: MORPHINE SULFATE 4 MG/ML SYRINGE IV PRN (01:49)
[2019-10-21] MEDS ORDERED: NALOXONE 0.4 MG/ML 1 ML VIAL IV PRN (01:49)
[2019-10-21] MEDS ORDERED: ACETAMINOPHEN TAB 325 MG TAB PO PRN (01:49)
[2019-10-21] MEDS ORDERED: SODIUM CHLORIDE 0.9% 1,000 ML IV SCH (02:00)
[2019-10-21 03:36] VITALS: TEMP 97.6
[2019-10-21 09:31] VITALS: BP 129/84; PULSE 81; RESP 16
--- NOTE | 2019-10-21 09:32 | P.CRDCN ---
History of Present Illness History of present illness: HISTORY OF PRESENTING ILLNESS This is a pleasant 49-year-old female past medical history significant for diabetes mellitus, hypertension, dyslipidemia, sleep apnea and schizophrenia. She denies prior history of coronary artery disease and does not follow in the office with a motivational speaker. We have been asked to see in consultation for chest pain. She has been experiencing right anterior wall chest pain since Monday of last week. The pain is reproducible on palpation and worse with movement of her body. She has some associated nausea and a taste of acid in her mouth. The pain radiates to the upper right abdomen at times. She denies trauma to the area. She came to ER Monday and underwent CT of the abdomen/pelvis that was unremarkable. DIAGNOSTICS EKG reveals sinus mechanism heart rate of [address] or T wave abnormalities noted. Chest xray negative for an acute cardiopulmonary process. Laboratory reviewed, CBC unremarkable, d-dimer 0.44, sodium 133, potassium 3.9, creatinine 0.31, alkaline phosphate 142 and cardiac enzymes negative 3. Current cardiac medications include chlorthalidone 50 mg daily, benazapril 40 mg BID and atenolol 100 mg daily. Most recent echocardiogram obtained September 2018 reveals preserved LV systolic function with ejection fraction 60-65%. REVIEW OF SYSTEMS At the time of my exam: CONSTITUTIONAL: Denies fever or chills. CARDIOVASCULAR: Complains of chest pain. Denies shortness of breath, orthopnea, PND or palpitations. RESPIRATORY: Denies cough. GASTROINTESTINAL: Denies abdominal pain, diarrhea, constipation, nausea or vomiting. MUSCULOSKELETAL: Denies myalgias. NEUROLOGIC: Denies numbness, tingling or weakness. ENDOCRINE: Denies fatigue, weight change, polydipsia or polyurina. GENITOURINARY: Denies burning, hematuria or urgency with micturation. HEMATOLOGIC: Denies history of anemia or bleeding. PHYSICAL EXAMINATION Blood pressure 177/89 heart rate 86 afebrile and maintaining oxygen saturation on room air. CONSTITUTIONAL: No apparent distress. HEENT: Head is normocephalic. Pupils are equal, round. Sclerae anicteric. Mucous membranes of the mouth are moist. No JVD. No carotid bruit. CHEST EXAMINATION: Lungs are clear to auscultation. Significant chest wall tenderness is noted on palpation, with deep breathing and movement of her torso. HEART EXAMINATION: Regular rate and rhythm. S1, S2 heard. No murmurs, gallops or rub. ABDOMEN: Soft, nontender. Positive bowel sounds. EXTREMITIES: 2+ peripheral pulses, no lower extremity edema and no calf tenderness. NEUROLOGIC EXAMINATION: Patient is awake, alert and oriented x3. ASSESSMENT Chest pain, atypical. Pleuritic, reproducible and associated with movement. Cons ider musculoskeletal injury. Diabetes mellitus Hypertension Dyslipidemia Sleep apnea Schizophrenia PLAN An acute coronary event has been ruled out. No EKG evidence of ischemia and negative cardiac enzymes. His symptoms are atypical for angina and related to underlying muscular skeletal injury. Obtain 2-D echocardiogram and Doppler study to assess cardiac structure and function. No further cardiac workup at this time. Given her risk factor profile we recommend outpatient stress testing once her symptoms have improved. Thank you kindly for this consultation. Nurse Practitioner note has been reviewed, I agree with a documented findings and plan of care. Patient was seen and examined. Past Medical History Past Medical History: Diabetes Mellitus, Hypertension, Memory Impairment, Osteoarthritis (OA), Sleep Apnea/CPAP/BIPAP Additional Past Medical History / Comment(s): carpal tunnel, back pain, left arm & leg pain, can't lift left arm up, ? palsy in side of face in past, frequent migraine headaches, ANIAK in left ear History of Any Multi-Drug Resistant Organisms: None Reported Past Surgical History: Tubal Ligation Past Anesthesia/Blood Transfusion Reactions: No Reported Reaction Past Psychological History: Depression, Schizophrenia Smoking Status: Never smoker Past Alcohol Use History: None Reported Past Drug Use History: None Reported - Past Family History Father Family Medical History: Diabetes Mellitus, Hypertension Mother Family Medical History: Liver Disease, Thyroid Disorder Additional Family Medical History / Comment(s): hepatitis Medications and Allergies Home Medications Medication Instructions Recorded Confirmed Type ARIPiprazole [Abilify] 15 mg PO HS 07/31/18 07/31/18 History Atenolol [Tenormin] 100 mg PO DAILY 07/31/18 08/01/18 History Atenolol/Chlorthalidone 1 each PO DAILY 07/31/18 08/01/18 History [Atenolol-Chlorthalidone 50-25] Benazepril HCl [Lotensin] 40 mg PO BID 07/31/18 07/31/18 History Chlorthalidone 50 mg PO DAILY 07/31/18 07/31/18 History INSULIN ASPART (NovoLOG) [NovoLOG 80 unit SQ HS 07/31/18 07/31/18 History (formulary)] INSULIN ASPART (NovoLOG) [NovoLOG 100 unit SQ QAM 07/31/18 07/31/18 History (formulary)] Liraglutide [Victoza 2-Kvng] 0.6 mg SQ DAILY 07/31/18 07/31/18 History Topiramate [Topamax] 100 mg PO DAILY 07/31/18 07/31/18 History metFORMIN HCL [Glucophage] 1,000 mg PO BID 07/31/18 07/31/18 History Cephalexin [Keflex] 500 mg PO Q6HR 7 Days #28 cap 08/07/19 Rx Nystatin 100,000Unit/gm Cream 1 applic TOPICAL BID 7 Days #15 08/07/19 Rx [Mycostatin Cream] gram Allergies Allergy/AdvReac Type Severity Reaction Status Date / Time tetanus and diphtheria Allergy Unknown Verified 10/21/19 00:32 toxoids [tetanus & diphtheria toxoids] Physical Exam Vitals: Vital Signs Temp Pulse Pulse Pulse Resp BP BP 10/21/19 03:15 97.6 F 86 18 177/89 10/21/19 03:00 86 10/21/19 02:32 98.1 F 92 22 155/93 10/21/19 00:53 90 10/21/19 00:28 98.3 F 88 24 165/83 Pulse Ox 10/21/19 03:15 96 10/21/19 03:00 10/21/19 02:32 97 10/21/19 00:53 10/21/19 00:28 98 Intake and Output 10/20/19 10/21/19 10/21/19 22:59 06:59 14:59 Intake Total 160 Balance 160 Intake: Intake, IV Titration 160 Amount Sodium Chloride 0.9% 1, 160 000 ml @ 20 mls/hr IV . Q24H [facility] Rx#:[id number] Other: Voiding Method Toilet # Voids 2 Weight 90.718 kg Results 10/21/19 00:52 10/21/19 00:52 Cardiac Enzymes 10/21/19 10/21/19 10/21/19 Range/Units 00:52 00:52 03:00 AST 31 (14-36) U/L Troponin I <0.012 <0.012 (0.000-0.034) ng/mL 10/21/19 Range/Units 05:41 AST (14-36) U/L Troponin I <0.012 (0.000-0.034) ng/mL Coagulation 10/21/19 Range/Units 00:52 PT 9.4 (9.0-12.0) sec APTT 20.4 L (22.0-30.0) sec CBC 10/21/19 Range/Units 00:52 WBC 7.2 (3.8-10.6) k/uL RBC 5.00 (3.80-5.40) m/uL Hgb 14.2 (11.4-16.0) gm/dL Hct 43.0 (34.0-46.0) % Plt Count 209 (150-450) k/uL Comprehensive Metabolic Panel 10/21/19 Range/Units 00:52 Sodium 133 L (137-145) mmol/L Potassium 3.9 (3.5-5.1) mmol/L Chloride 102 (98-107) mmol/L Carbon Dioxide 21 L (22-30) mmol/L BUN 9 (7-17) mg/dL Creatinine 0.31 L (0.52-1.04) mg/dL Glucose 384 H (74-99) mg/dL Calcium 9.2 (8.4-10.2) mg/dL AST 31 (14-36) U/L ALT 31 (4-34) U/L Alkaline Phosphatase 142 H (38-126) U/L Total Protein 6.7 (6.3-8.2) g/dL Albumin 4.3 (3.5-5.0) g/dL Current Medications Generic Name Dose Route Start Last Admin Trade Name Freq PRN Reason Stop Dose Admin Acetaminophen 650 mg 10/21/19 01:49 Tylenol Tab PO Q6HR PRN Mild Pain or Fever > 100.5 Sodium Chloride 1,000 mls @ 20 mls/hr 10/21/19 02:00 10/21/19 02:26 Saline 0.9% IV 20 mls/hr .Q24H REBECCA Administration Morphine Sulfate 4 mg 10/21/19 01:49 Morphine Sulfate (Inj) IV Q4HR PRN Severe Pain Naloxone HCl 0.2 mg 10/21/19 01:49 Narcan IV Q2M PRN Opioid Reversal Intake and Output 10/20/19 10/21/19 10/21/19 22:59 06:59 14:59 Intake Total 160 Balance 160 Intake: Intake, IV Titration 160 Amount Sodium Chloride 0.9% 1, 160 000 ml @ 20 mls/hr IV . Q24H [facility] Rx#:[id number] Other: Voiding Method Toilet # Voids 2 Weight 90.718 kg 10/21/19 00:52 10/21/19 00:52
--- NOTE | 2019-10-21 16:50 | DS ---
DISCHARGE SUMMARY CHIEF COMPLAINT: Chest pain. HISTORY OF PRESENT ILLNESS AND PHYSICAL EXAMINATION: Details of this lady's history and physical can be found in the initial workup. COURSE IN THE HOSPITAL: After admission she was placed on bedrest, started on intravenous fluids, and she was seen by Cardiology. She was taken for a cardiac stress study which apparently was normal and she was cleared by Cardiology. She then signed herself out AGAINST MEDICAL ADVICE. FINAL DIAGNOSES: 1. Chest pain. 2. Uncontrolled diabetes mellitus. 3. Hypertension. OPERATIONS: None. CONSULTATION: Cardiology. She is improved. MMODL / IJN: [id number] /
--- NOTE | 2019-10-21 17:11 | HP ---
HISTORY AND PHYSICAL CHIEF COMPLAINT: Chest pain. HISTORY OF PRESENT ILLNESS: This is another admission for this noncompliant 49-year-old diabetic [place] who has never had good control of her blood sugars or blood pressure. She apparently came into the emergency room with chest pain. She was admitted. Review of systems was not obtained because she signed out before she was seen. Past medical history, family history, and personal and social histories were not obtained from the patient. She has a history of tetanus toxoid. When she was last seen, she was on updrafts with DuoNeb, atorvastatin 80 mg, benazepril 40 mg once a day, Seroquel 50 mg at night, omeprazole 20 mg twice a day, chlorthalidone 50 mg once a day, metformin 1 gram twice a day, Zolpidem 5 mg at bedtime, Zyrtec and montelukast 10 mg once a day. She is also on trazodone 50 mg one or two at bedtime and atenolol 100 mg once a day. She takes Humulin RU 500, 100 units in the morning, 60 at lunch, 25 for her snack. She is on Topamax 25 mg once a day, Ritalin 5 mg twice a day, Victoza 18 mg, Abilify 15 mg once a day and vitamin B. Past medical history, family history, and personal and social histories are all otherwise unremarkable and noncontributory. She does not smoke. PHYSICAL EXAMINATION: Blood pressure is 152/92, pulse of 88, respirations 18. She is afebrile. In general she appeared to be obese, in no acute distress. Skin color was normal. Skin was warm and dry. Lymph nodes were not enlarged. Head, ears, eyes, nose, mouth and throat were normal. Neck veins were not distended. Thyroid was not enlarged. Chest was clear. Cardiac exam was normal. Abdomen was protuberant, soft, nontender without visceromegaly or masses. Bowel sounds were present. Extremities were normal. Neurologically she was intact. She is admitted to the hospital with the diagnoses: 1. Chest pain. 2. Hypertension. 3. Uncontrolled insulin-dependent diabetes mellitus. 4. Obesity. 5. Depression. PLAN: 1. Bed rest. 2. IV fluids. 3. Cardiology consult. MMODL / IJN: [id number] /
--- NOTE | 2019-10-24 16:12 | ECHOF ---
Referral Reason:pleuritic cp MEASUREMENTS -------- HEIGHT: 162.6 cm WEIGHT: 90.7 kg BP: RVIDd: 3.3 cm (< 3.3) IVSd: 1.1 cm (0.6 - 1.1) LVIDd: 3.4 cm (3.9 - 5.3) LVPWd: 1.5 cm (0.6 - 1.1) IVSs: 1.7 cm LVIDs: 2.4 cm LVPWs: 1.4 cm LA Diam: 3.9 cm (2.7 - 3.8) LAESV Index (A-L): 25.44 ml/m Ao Diam: 2.6 cm (2.0 - 3.7) AV Cusp: 1.9 cm (1.5 - 2.6) MV EXCURSION: 13.189 mm (> 18.000) MV EF SLOPE: 78 mm/s (70 - 150) EPSS: 1.1 cm MV E Matthias: 0.77 m/s MV DecT: 184 ms MV A Matthias: 0.86 m/s MV E/A Ratio: 0.90 RAP: 5.00 mmHg RVSP: 19.65 mmHg FINDINGS -------- Sinus rhythm. This was a technically good study. LV size, wall thickness and systolic function are normal, with an EF greater than 55%. The left rolando tricular size is normal. The right ventricle is normal in size. The left atrial size is normal. Normal LA size by volume 22+/-6 ml/m2. The right atrial size is normal. The aortic valve is trileaflet, and appears structurally normal. No aortic stenosis or regurgitation. Mild mitral regurgitation is present. Mild tricuspid regurgitation present. Right ventricular systolic pressure is normal at < 35 mmHg. There is no pulmonic regurgitation present. The aortic root size is normal. There is no pericardial effusion. CONCLUSIONS -------- 1. Sinus rhythm. 2. This was a technically good study. 3. LV size, wall thickness and systolic function are normal, with an EF greater than 55%. 4. The left ventricular size is normal. 5. The right ventricle is normal in size. 6. The left atrial size is normal. 7. Normal LA size by volume 22+/-6 ml/m2. 8. The right atrial size is normal. 9. Mild mitral regurgitation is present. 10. Mild tricuspid regurgitation present. 11. Right ventricular systolic pressure is normal at < 35 mmHg. 12. There is no pericardial effusion. LOSS CONTROL ENGINEER: Andreina De Luna RDCS
== END 2019-10-21 11:42 | disposition left against medical advice (07) ==
LOC: EC 00:26 → 3NCARDOBS 01:50
PROVIDERS: ADMIT Family Medicine; ATTEND Family Medicine
DX: R07.89 Other chest pain (principal); E11.65 Type 2 diabetes mellitus with hyperglycemia; I10 Essential (primary) hypertension; G43.909 Migraine, unspecified, not intractable, without status migrainosus; M19.90 Unspecified osteoarthritis, unspecified site; E78.5 Hyperlipidemia, unspecified; G47.30 Sleep apnea, unspecified; Z99.89 Dependence on other enabling machines and devices; R41.3 Other amnesia; F20.9 Schizophrenia, unspecified; F32.9 Major depressive disorder, single episode, unspecified; H91.92 Unspecified hearing loss, left ear; Z20.828 Contact with and (suspected) exposure to other viral communicable diseases; Z91.19 Patient's noncompliance with other medical treatment and regimen; Z79.4 Long term (current) use of insulin; Z79.899 Other long term (current) drug therapy; Z88.7 Allergy status to serum and vaccine; Z98.51 Tubal ligation status; Z83.3 Family history of diabetes mellitus; Z82.49 Family history of ischemic heart disease and other diseases of the circulatory system; Z83.49 Family history of other endocrine, nutritional and metabolic diseases; Z83.79 Family history of other diseases of the digestive system
CPT/HCPCS: 96374; 99285; 36415; 93005; 93306; 85379; 80053; 83690; 83735; 84484; 85025; 85610; 85730; 71046; G0378; U0003; J2270

== ENCOUNTER → 2020-01-23 | Outpatient (CLI) | payer OTHER ==
--- NOTE | 2020-01-23 16:32 | SFUN ---
SLEEP CENTER FOLLOW UP NOTE DATE OF SERVICE: 01/23/2020 This patient is a 49-year-old lady who has been followed in Sleep Center for possible narcolepsy, extremely short mean sleep latency on MSLT. The patient is on treatment with Adderall 5 mg b.i.d. and on Ambien 5 mg b.i.d. and on Ambien 5 mg at bedtime on nights when she has difficulties falling asleep. According to her, for about 2 weeks a month she sleeps well, and during the other 2 weeks she may have some difficulties and falls asleep later. MEDICATIONS: Adderall, bupropion, aripiprazole, montelukast, Lina, fluticasone, prednisone, Tessalon, oxybutynin, Januvia. The patient does not know the dosage of medications. PHYSICAL EXAMINATION: GENERAL: A pleasant patient in no distress. VITAL SIGNS: BP 122/83, HR 86, RR 15, height 5 feet 4 inches, weight 202, BMI 34.4, temperature 97.8, oxygen saturation at room air 97%. HEENT: PERRLA, EOMI. Evaluation of oropharynx showed tongue protrudes midline. NECK: Supple. No JVD. Thyroid is not palpable. LUNGS: Clear to percussion and to auscultation. Good air exchange. No wheezing or rhonchi. HEART: S1, S2 regular. No murmurs, gallops or rubs. ABDOMEN: Slightly obese. EXTREMITIES: No clubbing or cyanosis. BRAKE COUPLER DINKEY: Awake, alert, and oriented X3. Cranial nerves 2 to 7 intact. There is no fasciculation or atrophy. noted. No focal deficits observed. IMPRESSION: 1. Possible narcolepsy. Mean sleep latency on MSLT 3.5 minutes, although no sleep- onset REM periods have been documented. 2. History of depression. 3. History of anxiety. 4. History of schizophrenia. 5. Hypertension. 6. Diabetes mellitus. 7. History of urinary incontinence. 8. Episodes of migraine. 9. Status post tubal ligation. 10.Sometimes difficulties falling asleep at night. PLAN: 1. Patient will continue to take Adderall 5 mg 2 times a day. 2. Patient will continue to take Ambien at bedtime on nights when she has difficulties falling asleep. 3. I discussed with the patient the possibility of using a light machine in the morning for 30 minutes during breakfast to make her sleep schedule to the earlier time, to regularize it, especially during the winter. 4. Precautions related to driving. No driving if feeling any sleepiness. 5. Watching weight. 6. Sleep hygiene with regular time in bed for at least 7-1/2 to 8 hours. Thank you very much for allowing me to participate in the management of your patient. Sincerely, Jonas Wise MD, PhD, FAASM Diplomat of [employer] Associate of [facility] MMODL / IJN: [id number] /
== END | disposition home or self-care (01) ==
LOC: SLEEP 11:17
PROVIDERS: ATTEND Internal Medicine
DX: G47.00 Insomnia, unspecified (principal); Z86.59 Personal history of other mental and behavioral disorders; I10 Essential (primary) hypertension; E11.9 Type 2 diabetes mellitus without complications; Z87.448 Personal history of other diseases of urinary system; Z86.69 Personal history of other diseases of the nervous system and sense organs; Z79.899 Other long term (current) drug therapy; Z79.51 Long term (current) use of inhaled steroids; Z79.84 Long term (current) use of oral hypoglycemic drugs

== ENCOUNTER → 2020-04-27 | Outpatient (CLI) | payer OTHER ==
--- NOTE | 2020-04-27 17:12 | XR ---
Bilateral hands and bilateral wrists HISTORY: M06.041, [id number], chronic bilateral hand and wrist pain 4 views of each wrist, 3 views of each hand submitted Bone mineralization, joint spaces and alignment are maintained. There is no fracture or dislocation w ithin the bilateral hands or wrists. Question small ossific density medial to the distal interphalang eal joint of the third digit which does not appear to be acute. There is a punctate density present a t the lateral aspect of the trapezium of the right wrist, suspect some sclerosis at the carpometacarp al joints of the first digits. IMPRESSION: Findings may be indicative of mild osteoarthritis.
== END | disposition home or self-care (01) ==
LOC: RADXRMAIN 14:47
PROVIDERS: ATTEND Family Medicine
DX: M06.041 Rheumatoid arthritis without rheumatoid factor, right hand (principal); M06.042 Rheumatoid arthritis without rheumatoid factor, left hand

== ENCOUNTER 2020-07-28 16:18 | Emergency (ER) | payer OTHER ==
[2020-07-28 16:25] VITALS: TEMP 98.7
--- NOTE | 2020-07-28 17:25 | XR ---
EXAMINATION TYPE: XR foot complete LT DATE OF EXAM: 07/28/2020 COMPARISON: NONE HISTORY: Pain little toe TECHNIQUE: 3 views FINDINGS: There is plantar and Achilles calcaneal spurring. I see no fracture nor dislocation. The to es appear intact. Little toe is intact. IMPRESSION: No acute abnormality of the left foot.
--- NOTE | 2020-07-28 17:25 | ED ---
Extremity Problem HPI - General Chief complaint: Extremity Problem,Nontraumatic Stated complaint: toe pain Time Seen by Provider: 07/28/20 16:36 Source: patient Mode of arrival: ambulatory Limitations: no limitations - History of Present Illness Initial comments: 49-year-old female presenting to the ER today for chief complaint left 5th toe pain x 3-4 days. pt states that she has had the pain x 3-4 days, she denies redness, she denies coolness or pallor. Patient denies injuries, fevers, falls or swelling. Patient states she does have DM. Denies openings or breaks in the skin. Patient has no additional complaints. Upon arrival patient appears nontoxic in no acute distress. - Related Data Home Medications Medication Instructions Recorded Confirmed Atenolol [Tenormin] 100 mg PO DAILY 07/31/18 10/21/19 Benazepril HCl [Lotensin] 40 mg PO BID 07/31/18 10/21/19 Chlorthalidone 50 mg PO DAILY 07/31/18 10/21/19 metFORMIN HCL [Glucophage] 1,000 mg PO BID 07/31/18 10/21/19 ARIPiprazole [Abilify] 20 mg PO HS 10/21/19 10/21/19 Albuterol Nebulized [Ventolin 2.5 mg INHALATION RT-QID PRN 10/21/19 10/21/19 Nebulized] Atorvastatin Calcium [Lipitor] 20 mg PO HS 10/21/19 10/21/19 Divalproex ER [Depakote ER] 500 mg PO DAILY 10/21/19 10/21/19 Ertugliflozin Pidolate [Steglatro] 15 mg PO DAILY 10/21/19 10/21/19 Fluticasone Nasal [place] [Flonase 2 spr EA NOSTRIL DAILY PRN 10/21/19 10/21/19 Nasal [place]] Insulin Regular, Human [humulin R 25 unit SQ DAILY PRN 10/21/19 10/21/19 U-500 Kwikpen] Insulin Regular, Human [humulin R 60 unit SQ DAILY@1200 10/21/19 10/21/19 U-500 Kwikpen] Ipratropium Nebulized [Atrovent 0.5 mg INHALATION RT-QID PRN 10/21/19 10/21/19 Nebulized 0.2 MG/ML] Montelukast Sodium [Singulair] 10 mg PO HS 10/21/19 10/21/19 OLANZapine [ZyPREXA] 7.5 mg PO HS 10/21/19 10/21/19 Omeprazole [PriLOSEC] 20 mg PO BID 10/21/19 10/21/19 Prazosin HCl 2 mg PO TID 10/21/19 10/21/19 Prevident 500 Plus 1.1% Cream 1 applic DENTAL BID PRN 10/21/19 10/21/19 buPROPion XL [Wellbutrin Xl] 300 mg PO DAILY 10/21/19 10/21/19 Allergies Allergy/AdvReac Type Severity Reaction Status Date / Time tetanus and diphtheria Allergy Unknown Verified 10/21/19 11:05 toxoids [tetanus & diphtheria toxoids] Review of Systems ROS Statement: Those systems with pertinent positive or pertinent negative responses have been documented in the HPI. ROS Other: All systems not noted in ROS Statement are negative. Past Medical History Past Medical History: Diabetes Mellitus, Hypertension, Memory Impairment, Osteoarthritis (OA), Sleep Apnea/CPAP/BIPAP Additional Past Medical History / Comment(s): carpal tunnel, back pain, left arm & leg pain, can't lift left arm up, ? 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 ear History of Any Multi-Drug Resistant Organisms: None Reported Past Surgical History: Tubal Ligation Past Anesthesia/Blood Transfusion Reactions: No Reported Reaction Past Psychological History: Depression, Schizophrenia Smoking Status: Never smoker Past Alcohol Use History: None Reported Past Drug Use History: None Reported - Past Family History Father Family Medical History: Diabetes Mellitus, Hypertension Mother Family Medical History: Liver Disease, Thyroid Disorder Additional Family Medical History / Comment(s): hepatitis General Exam - General Exam Comments Initial Comments: General: The patient is awake and alert, in no distress Eye: Pupils are equal, round and reactive to light, extra-ocular movements are intact. No nystagmus. There is normal conjunctiva bilaterally. No signs of icterus. Cardiovascular: There is a regular rate and rhythm. No murmur, rub or gallop is appreciated. Respiratory: Lungs are clear to auscultation, respirations are non-labored, breath sounds are equal. No wheezes, stridor, rales, or rhonchi. Musculoskeletal: Normal inspection of the left 5th toe, normal capillary refill < 3 seconds. painful to touch but not warm or red. no opening is skin or discoloration. Normal ROM, of MTP joint with tenderness. Strength 5/5. Sensation intact. DP pulses equal bilaterally 2+. Neurological: A&O x 3. CN II-XII intact grossly, There are no obvious motor or sensory deficits. Coordination appears grossly intact. Speech is normal. Skin: Skin is warm and dry and no rashes or lesions are noted. Psychiatric: Cooperative, appropriate mood & affect, normal judgment. Limitations: no limitations Course Vital Signs 07/28/20 16:22 Temperature 98.7 F Pulse Rate 108 H Respiratory 18 Rate Blood Pressure 136/87 O2 Sat by Pulse 99 Oximetry - Reevaluation(s) Reevaluation #1: evaluated by attending who is agreeable that exam and imaging unremarkable at this time in the disease process, we recommend orthopedic/podiatry follow-up and return to the ER for any worsening symptoms/change/new symptoms. pt frustrated but agreeable to discharge. 07/28/20 18:17 Medical Decision Making - Medical Decision Making 49yo presenting for toe pain, no known injury. no exam findings aside from pain. no redness, swelling, breaks in skin, warm or discoloration. capilllary refill WNL. no constitutional symptoms. pt discharged appearing well, advised to closely monitor and return for worsening symptoms and ensure close f/u with orthopedics and/or podiatry in next [address] Marie agreeable to care plan. Disposition Clinical Impression: Toe pain Disposition: HOME SELF-CARE Condition: Good Instructions (If sedation given, give patient instructions): Arthralgia (ED) Additional Instructions: Please use medication as discussed. Please follow-up with family doctor in the next 2 days, recommend podiatry follow-up. Please return to emergency room if the symptoms increase or worsen or for any other concerns. Is patient prescribed a controlled substance at d/c from ED?: No Referrals: None,Stated [Primary Care Provider] - 1-2 days Peterson Avelar DPM [STAFF PHYSICIAN] - 1-2 days Bang Grant MD [STAFF PHYSICIAN] - 1-2 days Time of Disposition: 17:58
[2020-07-28] MEDS ORDERED: KETOROLAC 15 MG/ML 1 ML VIAL IM STA (17:36)
[2020-07-28] MEDS ORDERED: ACET/COD 300 MG/30 MG STARTER PACK 6 TAB BTL PO STA (17:36)
[2020-07-28 18:15] VITALS: BP 144/87; PULSE 89; RESP 20
== END 2020-07-28 18:15 | disposition home or self-care (01) ==
LOC: EC 16:18
DX: M79.675 Pain in left toe(s) (principal); E11.9 Type 2 diabetes mellitus without complications; I10 Essential (primary) hypertension; M19.90 Unspecified osteoarthritis, unspecified site; G47.30 Sleep apnea, unspecified; Z79.4 Long term (current) use of insulin; Z79.899 Other long term (current) drug therapy; Z82.49 Family history of ischemic heart disease and other diseases of the circulatory system; Z83.3 Family history of diabetes mellitus; Z83.49 Family history of other endocrine, nutritional and metabolic diseases
CPT/HCPCS: 73630; 99283; 96372; J1885

== ENCOUNTER → 2020-08-13 | Outpatient (CLI) | payer OTHER ==
--- NOTE | 2020-08-13 15:44 | SFUN ---
SLEEP CENTER FOLLOW UP NOTE DATE OF SERVICE: 08/13/2020 This 49-year-old lady has been followed in [facility] for treatment of sleep problems. The patient had a sleep study in 2018 which was negative for obstructive sleep apnea, but multiple sleep latency test on the following day showed pathological sleepiness with very short mean sleep latency, 0.5 minutes. At that time I recommended that the patient be started on treatment with Adderall, but according to the patient she never received her medication when she went to the pharmacy. At the present time, the patient has difficulties initiating sleep and also has multiple awakenings from sleep with episodes of panic attacks and possibly episodes of gasping for air. During the day she continues to feel sleepiness, with a very high Dennis Sleepiness Scale of 18. CURRENT MEDICATIONS: Januvia, bupropion, aripiprazole, montelukast, Lina, fluticasone, prednisone, Tessalon, oxybutynin. PHYSICAL EXAMINATION: GENERAL: A pleasant patient in no distress. VITAL SIGNS: BP 131/90, HR 100, RR 12, height 5 feet 4-1/2 inches, weight 202.0 pounds, temperature 97.9, oxygen saturation at room air 97%. HEENT: PERRLA, EOMI. Evaluation of oropharynx showed tongue protrudes midline. Extremely low position of soft palate. Mallampati IV. NECK: Supple. No JVD. Thyroid is not palpable. LUNGS: Clear to percussion and to auscultation. Good air exchange. No wheezing or rhonchi. HEART: S1, S2 regular. No murmurs, gallops or rubs. ABDOMEN: Obese. EXTREMITIES: No clubbing or cyanosis. TILE INSTALLER: Awake, alert, and oriented X3. Cranial nerves 2 to 7 intact. There is no fasciculation or atrophy. noted. No focal deficits observed. IMPRESSION: 1. Pathological sleepiness by results of multiple sleep latency test, possible narcolepsy. 2. Multiple awakenings from sleep, small oropharyngeal air space, episodes of gasping for air after awakenings, panic attacks; possible obstructive sleep apnea-hypopnea syndrome. 3. Obesity. 4. Diabetes mellitus. 5. History of schizophrenia. 6. History of depression. 7. History of anxiety. 8. Hypertension. 9. History of urinary incontinence. 10.Episodes of migraines. 11.Status post tubal ligation. PLAN: 1. Treatment with Adderall for significant excessive daytime sleepiness, possible narcolepsy. 2. Repeat polysomnogram for reevaluation of patient's breathing during sleep for possible obstructive sleep apnea-hypopnea syndrome. 3. Losing weight. 4. Sleep hygiene with regular time in bed for 7-1/2 to 8 hours. 5. No driving if feeling any sleepiness. Thank you very much for allowing me to participate in the management of your patient. Sincerely, Jonas Wise MD, PhD, FAASM Diplomat of [employer] [facility] [facility] [place] MMODL / IJN: [id number] /
== END ==
LOC: SLEEP 13:00
PROVIDERS: ATTEND Internal Medicine
DX: R40.0 Somnolence (principal); G47.8 Other sleep disorders; E66.9 Obesity, unspecified; F20.9 Schizophrenia, unspecified; F32.9 Major depressive disorder, single episode, unspecified; I10 Essential (primary) hypertension; G43.909 Migraine, unspecified, not intractable, without status migrainosus; F41.0 Panic disorder [episodic paroxysmal anxiety]; Z98.51 Tubal ligation status; Z87.448 Personal history of other diseases of urinary system; Z79.899 Other long term (current) drug therapy; Z88.7 Allergy status to serum and vaccine

== ENCOUNTER 2021-01-01 09:13 | Day surgery (SDC) | payer OTHER ==
--- NOTE | 2020-12-31 09:35 | HP ---
HISTORY AND PHYSICAL CHIEF COMPLAINT: Left hand pain and numbness. HISTORY OF PRESENT ILLNESS: The patient is a 49-year-old right-hand dominant female on disability, who presents with progressive left hand pain and numbness for the past several years, worsening recently. She is having a difficult time with gripping and grasping. She is having night symptoms. She has tried injections, bracing and medications without much relief. PAST MEDICAL HISTORY: Significant for type 2 diabetes, hypertension, and depression. PAST SURGICAL HISTORY: Negative. CURRENT MEDICATIONS: Abilify, Ritalin, atenolol, atorvastatin, chlorthalidone, cyclobenzaprine, insulin, metformin, omeprazole, Topamax, trazodone. ALLERGIES: SHE HAS ALLERGIES TO TETANUS INJECTIONS. FAMILY HISTORY: Negative. SOCIAL HISTORY: Negative for current tobacco or alcohol use. REVIEW OF SYSTEMS: Sixteen-point review of systems otherwise reviewed and noncontributory. PHYSICAL EXAMINATION: On examination, the patient is approximately 5 foot 4, 200 pounds of endomorphic habitus. HEENT exam is nonfocal. NECK is supple. She is nontender about the left shoulder and elbow. On examination of her left wrist, she has a positive Tinel's, over the carpal canal. Adductor pollicis brevis strength is 5/5. She has subjective diffuse numbness throughout all digits. EMG report left upper extremity shows median motor latency of the carpal canal 4.8, sensory latency 4.8. IMPRESSION: Left carpal tunnel syndrome-symptomatic. RECOMMENDATIONS: I talked to the patient at length regarding her condition along with treatment options. At this point, she is quite symptomatic and limited having pain and numbness despite previous conservative measures. After thorough discussion, she opts to proceed with surgery. We will plan to proceed with left carpal tunnel release utilizing local anesthetic and IV sedation. Risks and benefits were discussed at length in layman's terms. MMODL / IJN: [id number] /
[~2021-01-01 09:13] MED LIST changes: +ONDANSETRON 4 MG/2 ML VIAL IVP ONE; +fentaNYL (PF) 50 MCG/ML 2 ML AMP IV PRN
[2021-01-01 09:39] VITALS: TEMP 97.2
[2021-01-01 09:58] LABS: Glucose,Whole Blood 194 mg/dL (75-99)
[2021-01-01] MEDS ORDERED: LIDOCAINE 1% (10MG/ML) FOR IV START INTRADERMA ONE (09:58)
[2021-01-01] MEDS ORDERED: MIDAZOLAM 2 MG/2 ML VIAL ONE (10:45)
[2021-01-01] MEDS ORDERED: PROPOFOL 10 MG/ML 20 ML VIAL IV ONE (10:45)
[2021-01-01] MEDS ORDERED: fentaNYL (PF) 50 MCG/ML 2 ML AMP ONE (10:45)
[2021-01-01] MEDS ORDERED: BUPIVACAINE (PF) 0.25% 30 ML VIAL SQ ONE (10:52)
[2021-01-01] MEDS ORDERED: LACTATED RINGERS 1,000 ML IV ONE (11:10)
--- NOTE | 2021-01-01 11:17 | P.OP ---
Date of Procedure: 01/01/21 Preoperative Diagnosis: Left carpal tunnel syndromesymptomatic Postoperative Diagnosis: Same Procedure(s) Performed: Left carpal tunnel release Anesthesia: MAC, local Surgeon: Guicho Dumont Estimated Blood Loss (ml): 1 Pathology: none sent Condition: stable Disposition: PACU Indications for Procedure: The patient's a 50-year-old female presents with progressive left hand pain and numbness secondary carpal tunnel syndrome despite previous conservative measures. A discussion of the risks and benefits of operative intervention versus continued conservative measures was made with the patient. She opted to proceed with surgery. Operative risks to include infection, neurovascular injury, possible development of reflex sympathetic dystrophy, possible incomplete resolution of symptoms, possible recurrence of symptoms and need for subsequent procedures was discussed. Informed consent was obtained. Operative Findings: As below Description of Procedure: The patient was brought to the operating room, and after induction of IV sedation the left upper extremity was prepped and draped in normal fashion. The proposed incision site was outlined skin marker in line with the radial aspect the fourth ray extending from the volar wrist crease distally 2-1/2 cm. One quarter percent plain Marcaine was injected into the proposed incision site. 9 mL was utilized. The tourniquet was inflated to 250 mmHg. The skin incision was then made. The skin was incised sharply. Subcutaneous tissues were divided sharply the superficial palmar fascia was identified and split in line with the skin incision. The transverse carpal ligament was identified and transected under direct visualization distally to level the palmar fat pad. Proximal was taken level of the volar wrist crease. A plane above and below the transverse carpal ligament was then bluntly developed with tenotomies. The confluence of the distal forearm fascia and the transverse carpal ligament was then transected under direct visualization proximally with the tines pointed in the ulnar direction. I felt this was adequate proximal release. Neural lysis was not performed. The wound was irrigated with normal saline. Electrocautery was used for hemostasis. The skin was reapproximated with simple 3-0 nylon sutures. A sterile dressing was applied. The tourniquet was deflated with less than 15 minutes total tourniquet time. Patient was awoken from sedation and transferred to the recovery room in good condition. Blood loss was estimated 1 mL. No complications were incurred. Sponge and needle counts were correct at the end of the case.
[2021-01-01 11:48] VITALS: BP 137/78; PULSE 84; RESP 18
== END 2021-01-01 11:59 | disposition home or self-care (01) ==
LOC: OR 09:13
PROVIDERS: ATTEND Orthopaedic Surgery
DX: G56.02 Carpal tunnel syndrome, left upper limb (principal); E11.9 Type 2 diabetes mellitus without complications; I10 Essential (primary) hypertension; F32.9 Major depressive disorder, single episode, unspecified; G47.33 Obstructive sleep apnea (adult) (pediatric); Z79.84 Long term (current) use of oral hypoglycemic drugs; Z79.4 Long term (current) use of insulin; Z79.899 Other long term (current) drug therapy; Z88.8 Allergy status to other drugs, medicaments and biological substances
CPT/HCPCS: 64721; J2250; J0690; J2405; J3010; J2704

== ENCOUNTER 2021-01-03 19:50 | Emergency (ER) | payer OTHER ==
[2021-01-03 20:01] VITALS: BP 134/85; PULSE 121; RESP 20; TEMP 98.6
[2021-01-03] MEDS ORDERED: HYDROcodone/APAP 5-325MG 1 EACH TAB PO STA (20:26)
--- NOTE | 2021-01-03 20:37 | ED ---
Recheck HPI - General Chief Complaint: Recheck/Abnormal Lab/Rx Stated Complaint: s/p surgery left hand swelling Time Seen by Provider: 01/03/21 20:18 Source: patient Mode of arrival: ambulatory - History of Present Illness Initial Comments: 50-year-old female patient presents to the emergency department today for evaluation of left hand pain and swelling. She had a couple tunnel release with Dr. Hanna on Monday. Patient states swelling and pain worsened today. States she has type 2 diabetes and she is concerned about infection. Denies any fever or chills. Denies any other symptoms or concerns. - Related Data Home Medications Medication Instructions Recorded Confirmed Atenolol [Tenormin] 100 mg PO DAILY 07/31/18 01/01/21 Benazepril HCl [Lotensin] 40 mg PO BID 07/31/18 01/01/21 Chlorthalidone 50 mg PO DAILY 07/31/18 01/01/21 metFORMIN HCL [Glucophage] 1,000 mg PO BID 07/31/18 01/01/21 ARIPiprazole [Abilify] 20 mg PO HS 10/21/19 01/01/21 Albuterol Nebulized [Ventolin 2.5 mg INHALATION RT-QID PRN 10/21/19 01/01/21 Nebulized] Atorvastatin Calcium [Lipitor] 20 mg PO HS 10/21/19 01/01/21 Divalproex ER [Depakote ER] 500 mg PO DAILY 10/21/19 01/01/21 Ertugliflozin Pidolate [Steglatro] 15 mg PO DAILY 10/21/19 01/01/21 Fluticasone Nasal [place] [Flonase 2 spr EA NOSTRIL DAILY PRN 10/21/19 01/01/21 Nasal [place]] Insulin Regular, Human [humulin R 25 unit SQ DAILY PRN 10/21/19 01/01/21 U-500 Kwikpen] Insulin Regular, Human [humulin R 60 unit SQ DAILY@1200 10/21/19 01/01/21 U-500 Kwikpen] Ipratropium Nebulized [Atrovent 0.5 mg INHALATION RT-QID PRN 10/21/19 01/01/21 Nebulized 0.2 MG/ML] Montelukast Sodium [Singulair] 10 mg PO HS 10/21/19 01/01/21 OLANZapine [ZyPREXA] 7.5 mg PO HS 10/21/19 01/01/21 Omeprazole [PriLOSEC] 20 mg PO BID 10/21/19 01/01/21 Prazosin HCl 2 mg PO TID 10/21/19 01/01/21 Prevident 500 Plus 1.1% Cream 1 applic DENTAL BID PRN 10/21/19 01/01/21 buPROPion XL [Wellbutrin Xl] 300 mg PO DAILY 10/21/19 01/01/21 Previous Rx's Medication Instructions Recorded Acetaminophen-Codeine 300-30mg 1 tab PO Q6H PRN #12 tablet 01/01/21 [Tylenol w/codeine #3] Allergies Allergy/AdvReac Type Severity Reaction Status Date / Time tetanus and diphtheria Allergy Unknown Verified 01/03/21 20:01 toxoids [tetanus & diphtheria toxoids] Review of Systems ROS Statement: Those systems with pertinent positive or pertinent negative responses have been documented in the HPI. ROS Other: All systems not noted in ROS Statement are negative. Past Medical History Past Medical History: Diabetes Mellitus, Hypertension, Memory Impairment, Osteoarthritis (OA), Sleep Apnea/CPAP/BIPAP Additional Past Medical History / Comment(s): carpal tunnel, back pain, left arm & leg pain, can't lift left arm up, ? palsy in side of face in past, frequent migraine headaches, [place] in left ear History of Any Multi-Drug Resistant Organisms: None Reported Past Surgical History: Tubal Ligation Additional Past Surgical History / Comment(s): Carpal Tunnel Surg on the left hand. Past Anesthesia/Blood Transfusion Reactions: No Reported Reaction Past Psychological History: Depression, Schizophrenia Smoking Status: Never smoker Past Alcohol Use History: None Reported Past Drug Use History: None Reported - Past Family History Father Family Medical History: Diabetes Mellitus, Hypertension Mother Family Medical History: Liver Disease, Thyroid Disorder Additional Family Medical History / Comment(s): hepatitis General Exam General appearance: alert, in no apparent distress, other (This is a well- developed, well-nourished adult female patient in no acute distress.) Respiratory exam: Present: normal lung sounds bilaterally. Absent: respiratory distress, wheezes, rales, rhonchi, stridor Cardiovascular Exam: Present: regular rate, normal rhythm, normal heart sounds. Absent: systolic murmur, diastolic murmur, rubs, gallop, clicks Extremities exam: Present: full ROM, normal capillary refill, other (Soft tissue swelling noted to all fingers on the left hand. There is midline palmar incision that is well approximated with sutures. No surrounding erythema, no drainage, no swelling. Radial pulses 2+. Range of motion is intact.). Absent: tenderness, pedal edema, joint swelling, calf tenderness Neurological exam: Present: alert, oriented X3, CN II-XII intact Psychiatric exam: Present: normal affect, normal mood Skin exam: Present: warm, dry, intact, normal color. Absent: rash Course Vital Signs 01/03/21 19:57 Temperature 98.6 F Pulse Rate 121 H Respiratory 20 Rate Blood Pressure 134/85 O2 Sat by Pulse 98 Oximetry Medical Decision Making - Medical Decision Making 50-year-old female patient who is 2 days status post carpal tunnel release with Dr. Hanna did for evaluation of swelling and pain to the left hand. Physical examination did reveal swelling to the fingers. Mike wrap and dressing was removed incision is intact with no signs of infection. This is normal postsurgical swelling did run the case by [facility] for Dr. Hanna who agrees. She'll be discharged to follow up with a surgeon as soon as possible. Return parameters were discussed in detail. She verbalizes understanding and agrees with this plan. My attending is Dr. Lozada. Disposition Clinical Impression: Swelling of left hand Disposition: HOME SELF-CARE Condition: Good Instructions (If sedation given, give patient instructions): Edema (ED) Additional Instructions: Keep hand elevated. Use ice for pain and swelling. Follow-up with case resolution specialist for further evaluation as soon as possible. Return for any new, worsening, or concerning symptoms. Is patient prescribed a controlled substance at d/c from ED?: No Referrals: Noemy Longoria MD [Primary Care Provider] - 1-2 days Time of Disposition: 20:37
== END 2021-01-03 20:44 | disposition home or self-care (01) ==
LOC: EC 19:50
DX: M79.89 Other specified soft tissue disorders (principal); M79.642 Pain in left hand; E11.9 Type 2 diabetes mellitus without complications; I10 Essential (primary) hypertension; G47.30 Sleep apnea, unspecified; G43.909 Migraine, unspecified, not intractable, without status migrainosus; F32.9 Major depressive disorder, single episode, unspecified; M19.90 Unspecified osteoarthritis, unspecified site; Z79.4 Long term (current) use of insulin; Z79.899 Other long term (current) drug therapy; Z98.890 Other specified postprocedural states
CPT/HCPCS: 99283

== ENCOUNTER 2021-02-23 06:23 | Inpatient (IN) | payer OTHER ==
[2021-02-23] MEDS ORDERED: SODIUM CHLORIDE 0.9% 1,000 ML IV ONE (08:22)
[2021-02-23] MEDS ORDERED: LORazepam 2 MG/ML INJ IV STA ×2 (08:22→09:58)
[2021-02-23] MEDS ORDERED: PANTOPRAZOLE 40 MG/10 ML VIAL IVP STA (08:22)
[2021-02-23] MEDS ORDERED: ONDANSETRON 4 MG/2 ML VIAL IVP STA (08:22)
--- NOTE | 2021-02-23 09:09 | ED ---
General Adult HPI - General Chief complaint: Dizziness Stated complaint: Dizziness, vomiting Time Seen by Provider: 02/23/21 08:12 Source: patient, family, RN notes reviewed, old records reviewed Mode of arrival: wheelchair Limitations: no limitations - History of Present Illness Initial comments: 50-year-old female was obtained for evaluation of dizziness, room spinning sensation. This began approximately 3 AM. Patient has had multiple episodes of vomiting. She states that she has baseline dizziness and then moments where this becomes more severe. She denies chest pain. Denies abdominal pain. Denies fever or chills. - Related Data Home Medications Medication Instructions Recorded Confirmed Benazepril HCl [Lotensin] 40 mg PO BID 07/31/18 02/23/21 Chlorthalidone 50 mg PO DAILY 07/31/18 02/23/21 Montelukast Sodium [Singulair] 10 mg PO HS 10/21/19 02/23/21 Amoxic-Pot Clav 875-125Mg 1 tab PO Q12HR 02/23/21 02/23/21 [Augmentin 875-125] Baclofen [Lioresal] 10 mg PO BID 02/23/21 02/23/21 Cetirizine HCl [Zyrtec] 10 mg PO TID 02/23/21 02/23/21 Divalproex ER [Depakote ER] 250 mg PO DAILY 02/23/21 02/23/21 Dulaglutide [Trulicity] 1.5 mg SQ Q7D 02/23/21 02/23/21 Ergocalciferol [Vitamin D2 (1250 1,250 mcg PO Q7D 02/23/21 02/23/21 Mcg = 13824 Iu)] Insulin Regular [HumuLIN R] 25 units SQ AC-LUNCH 02/23/21 02/23/21 Insulin Regular [HumuLIN R] 60 units SQ AC-SUPPER 02/23/21 02/23/21 Insulin Regular [HumuLIN R] 120 units SQ AC-BRKFST 02/23/21 02/23/21 Ipratropium-Albuterol Nebulize 3 ml INHALATION RT-Q6H PRN 02/23/21 02/23/21 [Duoneb 0.5 mg-3 mg/3 ml Soln] Triamcinolone 0.1% Cream [Kenalog 1 applicatio TOPICAL BID 02/23/21 02/23/21 0.1% Cream] metFORMIN HCL [Glucophage] 1,000 mg PO BID 02/23/21 02/23/21 Allergies Allergy/AdvReac Type Severity Reaction Status Date / Time tetanus and diphtheria Allergy Unknown Verified 02/23/21 09:38 toxoids [tetanus & diphtheria toxoids] Review of Systems ROS Statement: Those systems with pertinent positive or pertinent negative responses have been documented in the HPI. ROS Other: All systems not noted in ROS Statement are negative. Past Medical History Past Medical History: Diabetes Mellitus, Hypertension, Memory Impairment, Osteoarthritis (OA), Sleep Apnea/CPAP/BIPAP Additional Past Medical History / Comment(s): carpal tunnel, back pain, left arm & leg pain, can't lift left arm up, ? palsy in side of face in past, frequent migraine headaches, [place] in left ear History of Any Multi-Drug Resistant Organisms: None Reported Past Surgical History: Tubal Ligation Additional Past Surgical History / Comment(s): Carpal Tunnel Surg on the left hand. Past Anesthesia/Blood Transfusion Reactions: No Reported Reaction Past Psychological History: Depression, Schizophrenia Smoking Status: Never smoker Past Alcohol Use History: None Reported Past Drug Use History: None Reported - Past Family History Father Family Medical History: Diabetes Mellitus, Hypertension Mother Family Medical History: Liver Disease, Thyroid Disorder Additional Family Medical History / Comment(s): hepatitis General Exam Limitations: no limitations General appearance: alert, in no apparent distress Head exam: Present: atraumatic, normocephalic Eye exam: Present: normal appearance, PERRL ENT exam: Present: mucous membranes dry Neck exam: Present: normal inspection. Absent: tenderness, meningismus Respiratory exam: Present: normal lung sounds bilaterally. Absent: respiratory distress, wheezes Cardiovascular Exam: Present: regular rate, normal rhythm GI/Abdominal exam: Present: soft. Absent: distended, tenderness, guarding Extremities exam: Present: normal inspection, normal capillary refill. Absent: pedal edema Neurological exam: Present: alert, oriented X3, CN II-XII intact, other (Finger to nose is normal bilaterally. No ataxia). Absent: motor sensory deficit Psychiatric exam: Present: normal affect, normal mood Skin exam: Present: warm, dry, intact. Absent: cyanosis, diaphoretic, erythema Course Vital Signs 02/23/21 06:25 Temperature 97.1 F L Pulse Rate 102 H Respiratory 22 Rate Blood Pressure 163/93 O2 Sat by Pulse 100 Oximetry - Reevaluation(s) Reevaluation #1: 02/23/21 11:15 Patient remains symptomatic. She has no ataxia or nystagmus. She will be admitted for symptom control. Discussed with Dr. Hurtado who will admit EKG Findings - EKG Comments: EKG Findings:: EKG: Normal sinus rhythm LVH rate of 98, NH interval 170, QRS duration 76, QTC 474, no ST segment elevation. Medical Decision Making - Medical Decision Making 50-year-old female presenting with dizziness, vertigo, nausea vomiting. No abdominal pain. No chest pain. No focal numbness or weakness, no ataxia, no headache. Patient did receive CT imaging to rule out acute intracranial pathology, this is negative. She has a leukocytosis which I suspect is reactive secondary to vomiting. Lactic acid 3.0 also likely from vomiting. Her blood sugar is elevated at 360 which is treated with IV fluids. After initial management with Ativan, Zofran, meclizine. Patient continues to have nausea vomiting and is dizzy with any movement. She will be admitted for symptomatic ally control. I did give this patient an aspirin and will consult neurology for evaluation. - Lab Data Result diagrams: 02/23/21 08:49 02/23/21 08:49 Lab Results 02/23/21 02/23/21 02/23/21 Range/Units 08:49 08:49 08:49 WBC 14.6 H (3.8-10.6) k/uL RBC 5.25 (3.80-5.40) m/uL Hgb 15.3 (11.4-16.0) gm/dL Hct 44.4 (34.0-46.0) % MCV 84.6 (80.0-100.0) fL MCH 29.2 (25.0-35.0) pg MCHC 34.5 (31.0-37.0) g/dL RDW 13.2 (11.5-15.5) % Plt Count 289 (150-450) k/uL MPV 9.4 Neutrophils % 86 % Lymphocytes % 11 % Monocytes % 2 % Eosinophils % 0 % Basophils % 0 % Neutrophils # 12.6 H (1.3-7.7) k/uL Lymphocytes # 1.6 (1.0-4.8) k/uL Monocytes # 0.2 (0-1.0) k/uL Eosinophils # 0.0 (0-0.7) k/uL Basophils # 0.1 (0-0.2) k/uL PT (9.0-12.0) sec INR (<1.2) APTT (22.0-30.0) sec Sodium (137-145) mmol/L Potassium (3.5-5.1) mmol/L Chloride (98-107) mmol/L Carbon Dioxide (22-30) mmol/L Anion Gap mmol/L BUN (7-17) mg/dL Creatinine (0.52-1.04) mg/dL Est GFR (CKD-EPI)AfAm (>60 ml/min/1.73 sqM) Est GFR (CKD-EPI)NonAf (>60 ml/min/1.73 sqM) Glucose (74-99) mg/dL Plasma Lactic Acid Theron (0.7-2.0) mmol/L Calcium (8.4-10.2) mg/dL Magnesium (1.6-2.3) mg/dL Total Bilirubin (0.2-1.3) mg/dL AST (14-36) U/L ALT (4-34) U/L Alkaline Phosphatase (38-126) U/L Troponin I (0.000-0.034) ng/mL Total Protein (6.3-8.2) g/dL Albumin (3.5-5.0) g/dL Urine Color Light Yellow Urine Appearance Clear (Clear) Urine pH 5.5 (5.0-8.0) Ur Specific [place] 1.035 (1.001-1.035) Urine Protein Trace H (Negative) Urine Glucose (UA) 4+ H (Negative) Urine Ketones 3+ H (Negative) Urine Blood Negative (Negative) Urine Nitrite Negative (Negative) Urine Bilirubin Negative (Negative) Urine Urobilinogen <2.0 (<2.0) mg/dL Ur Leukocyte Esterase Negative (Negative) Coronavirus (PCR) Not Detected (Not Detectd) 02/23/21 02/23/21 02/23/21 Range/Units 08:49 08:49 08:49 WBC (3.8-10.6) k/uL RBC (3.80-5.40) m/uL Hgb (11.4-16.0) gm/dL Hct (34.0-46.0) % MCV (80.0-100.0) fL MCH (25.0-35.0) pg MCHC (31.0-37.0) g/dL RDW (11.5-15.5) % Plt Count (150-450) k/uL MPV Neutrophils % % Lymphocytes % % Monocytes % % Eosinophils % % Basophils % % Neutrophils # (1.3-7.7) k/uL Lymphocytes # (1.0-4.8) k/uL Monocytes # (0-1.0) k/uL Eosinophils # (0-0.7) k/uL Basophils # (0-0.2) k/uL PT 9.7 (9.0-12.0) sec INR 0.9 (<1.2) APTT 19.9 L (22.0-30.0) sec Sodium 137 (137-145) mmol/L Potassium 4.5 (3.5-5.1) mmol/L Chloride 103 (98-107) mmol/L Carbon Dioxide 20 L (22-30) mmol/L Anion Gap 14 mmol/L BUN 9 (7-17) mg/dL Creatinine 0.33 L (0.52-1.04) mg/dL Est GFR (CKD-EPI)AfAm >90 (>60 ml/min/1.73 sqM) Est GFR (CKD-EPI)NonAf >90 (>60 ml/min/1.73 sqM) Glucose 367 H (74-99) mg/dL Plasma Lactic Acid Theron 3.0 H* (0.7-2.0) mmol/L Calcium 10.0 (8.4-10.2) mg/dL Magnesium 1.8 (1.6-2.3) mg/dL Total Bilirubin 0.8 (0.2-1.3) mg/dL AST 34 (14-36) U/L ALT 36 H (4-34) U/L Alkaline Phosphatase 111 (38-126) U/L Troponin I (0.000-0.034) ng/mL Total Protein 7.7 (6.3-8.2) g/dL Albumin 4.8 (3.5-5.0) g/dL Urine Color Urine Appearance (Clear) Urine pH (5.0-8.0) Ur Specific [place] (1.001-1.035) Urine Protein (Negative) Urine Glucose (UA) (Negative) Urine Ketones (Negative) Urine Blood (Negative) Urine Nitrite (Negative) Urine Bilirubin (Negative) Urine Urobilinogen (<2.0) mg/dL Ur Leukocyte Esterase (Negative) Coronavirus (PCR) (Not Detectd) 02/23/21 Range/Units 08:49 WBC (3.8-10.6) k/uL RBC (3.80-5.40) m/uL Hgb (11.4-16.0) gm/dL Hct (34.0-46.0) % MCV (80.0-100.0) fL MCH (25.0-35.0) pg MCHC (31.0-37.0) g/dL RDW (11.5-15.5) % Plt Count (150-450) k/uL MPV Neutrophils % % Lymphocytes % % Monocytes % % Eosinophils % % Basophils % % Neutrophils # (1.3-7.7) k/uL Lymphocytes # (1.0-4.8) k/uL Monocytes # (0-1.0) k/uL Eosinophils # (0-0.7) k/uL Basophils # (0-0.2) k/uL PT (9.0-12.0) sec INR (<1.2) APTT (22.0-30.0) sec Sodium (137-145) mmol/L Potassium (3.5-5.1) mmol/L Chloride (98-107) mmol/L Carbon Dioxide (22-30) mmol/L Anion Gap mmol/L BUN (7-17) mg/dL Creatinine (0.52-1.04) mg/dL Est GFR (CKD-EPI)AfAm (>60 ml/min/1.73 sqM) Est GFR (CKD-EPI)NonAf (>60 ml/min/1.73 sqM) Glucose (74-99) mg/dL Plasma Lactic Acid Theron (0.7-2.0) mmol/L Calcium (8.4-10.2) mg/dL Magnesium (1.6-2.3) mg/dL Total Bilirubin (0.2-1.3) mg/dL AST (14-36) U/L ALT (4-34) U/L Alkaline Phosphatase (38-126) U/L Troponin I <0.012 (0.000-0.034) ng/mL Total Protein (6.3-8.2) g/dL Albumin (3.5-5.0) g/dL Urine Color Urine Appearance (Clear) Urine pH (5.0-8.0) Ur Specific [place] (1.001-1.035) Urine Protein (Negative) Urine Glucose (UA) (Negative) Urine Ketones (Negative) Urine Blood (Negative) Urine Nitrite (Negative) Urine Bilirubin (Negative) Urine Urobilinogen (<2.0) mg/dL Ur Leukocyte Esterase (Negative) Coronavirus (PCR) (Not Detectd) Disposition Clinical Impression: Dehydration, Vertigo, Intractable nausea and vomiting Disposition: ADMITTED IP TO THIS [facility] Condition: Stable Is patient prescribed a controlled substance at d/c from ED?: No Referrals: Noemy Longoria MD [Primary Care Provider] - 1-2 days Decision to Admit Reason: Admit from EC Decision Date: 02/23/21 Decision Time: 11:17
--- NOTE | 2021-02-23 09:26 | CT ---
EXAMINATION TYPE: CT brain wo con DATE OF EXAM: 02/23/2021 HISTORY: Vertigo CT DLP: 1070.4 mGycm. Automated Exposure Control for Dose Reduction was Utilized. TECHNIQUE: CT scan of the head is performed without contrast. COMPARISON: CT brain September 01, 2016 MRI brain June 14, 2019. FINDINGS: There is no acute intracranial hemorrhage or midline shift identified. Ventricles and sul ci are within normal limits in size for patient's age. Duarte-white matter differentiation fairly well maintained on CT. Mild mucosal thickening inferiorly bilateral maxillary sinuses and ethmoid sinuses. Otherwise paranasal sinuses are clear. Some artifact at level of foramen magnum noted from earrings . Globes are intact bilaterally. IMPRESSION: No acute intracranial hemorrhage or midline shift. No significant change from prior stud ies.
[2021-02-23 09:30] LABS: Appearance,Urine Clear (Clear); Bilirubin,Urine Negative (Negative); Blood,Urine Negative (Negative); Color,Urine Light Yellow; Glucose,Urine (UA) 4+ (Negative); Leukocyte Esterase,Urine Negative (Negative); Nitrite,Urine Negative (Negative); PH, Urine 5.5 (5.0-8.0); Protein,Urine Trace (Negative); Specific Gravity,Urine 1.035 (1.001-1.035); Urobilinogen,Urine <2.0 mg/dL (<2.0)
[2021-02-23 09:42] LABS: ALT 36 U/L (4-34); AST 34 U/L (14-36); African American GFR (CKD) >90 (>60 ml/min/1.73 sqM); Albumin 4.8 g/dL (3.5-5.0); Alkaline Phosphatase 111 U/L (38-126); Anion Gap 14 mmol/L; Blood Urea Nitrogen 9 mg/dL (7-17); Carbon Dioxide 20 mmol/L (22-30); Chloride 103 mmol/L (98-107); Glucose 367 mg/dL (74-99); Magnesium 1.8 mg/dL (1.6-2.3); Non-African American GFR(CKD) >90 (>60 ml/min/1.73 sqM); Potassium 4.5 mmol/L (3.5-5.1); Sodium 137 mmol/L (137-145); Total Bilirubin 0.8 mg/dL (0.2-1.3); Total Protein 7.7 g/dL (6.3-8.2)
[2021-02-23 09:48] LABS: INR 0.9 (<1.2); Prothrombin Time 9.7 sec (9.0-12.0)
[2021-02-23 09:52] LABS: Basophils # (A) 0.1 k/uL (0-0.2); Basophils % (A) 0 %; Eosinophils % (A) 0 %; HCT 44.4 % (34.0-46.0); HGB 15.3 gm/dL (11.4-16.0); Lymphocytes # (A) 1.6 k/uL (1.0-4.8); Lymphocytes % (A) 11 %; MCH 29.2 pg (25.0-35.0); MCHC 34.5 g/dL (31.0-37.0); MCV 84.6 fL (80.0-100.0); Mean Platelet Volume 9.4; Monocytes # (A) 0.2 k/uL (0-1.0); Monocytes % (A) 2 %; Neutrophils # (A) 12.6 k/uL (1.3-7.7); Neutrophils % (A) 86 %; Platelet Count 289 k/uL (150-450); RBC 5.25 m/uL (3.80-5.40); RDW 13.2 % (11.5-15.5); WBC 14.6 k/uL (3.8-10.6)
[2021-02-23] MEDS ORDERED: MECLIZINE 12.5 MG TAB PO STA (09:58)
[2021-02-23] MEDS ORDERED: SODIUM CHLORIDE 0.9% 500 ML 500 ML IV ONE (09:58)
[2021-02-23 10:05] LABS: Partial Thromboplastin Time 19.9 sec (22.0-30.0)
[2021-02-23 10:25] LABS: Ketones,Urine 3+ (Negative)
[2021-02-23] MEDS ORDERED: ONDANSETRON 4 MG/2 ML VIAL IVP PRN (11:12)
[2021-02-23] MEDS ORDERED: NALOXONE 0.4 MG/ML 1 ML VIAL IV PRN (11:12)
[2021-02-23] MEDS ORDERED: ACETAMINOPHEN TAB 325 MG TAB PO PRN (11:12)
[2021-02-23] MEDS ORDERED: MECLIZINE 25 MG TAB PO PRN (11:15)
[2021-02-23] MEDS ORDERED: ASPIRIN 325 MG TAB PO STA ×2 (11:16→23:12)
[2021-02-23] MEDS: SODIUM CHLORIDE 0.9% 1,000 ML IV SCH (11:56)
[2021-02-23] MEDS ORDERED: DIAZEPAM 5 MG/ML 2 ML INJ IVP STA (16:48)
--- NOTE | 2021-02-23 17:05 | P.CNNES ---
History of Present Illness Consult date: 02/23/21 Requesting physician: Crow Warren Reason for Consult: vertigo History of Present Illness: This is a 50-year-old woman history of hearing loss on of bilateral ears left more than the right for last 2-3 years, recent left ear infection for the last 1 week, diabetes mellitus, hypertension, migraines, Schizophrenia, depression presented emergency department on the 02/23/2021 for dizziness. Patient stated that the symptoms began at 1 AM and felt like the room is spinning. He stated that she went to bed around 8 PM yesterday and when she woke up at 1:00 she felt that the room was spinning around her all of a sudden. She had the repeated episode of nausea and vomiting early in the morning. She said the that her dizziness is the at rest and with position but worse with the any head movement. She denies any focal weakness or numbness. She denies any difficulty getting her words out. She feels is having diplopia and triplopia on both eyes. She feels that she is drooping saliva on the right side of the face and she feels her face is puffy . She denies any difficulty swallowing. She said that the in the last 1 week she was notified by her primary care physician that she has a left ear infection and he prescribed her antibiotic (Augmentin) he has been taken for the last couple days. She said that she follows up well with an ENT specialist regarding her bilateral ear loss left more than the right. She denies any history of stroke or TIAs in the past. She's non-any antiplatelets or statin that. Denies of any illicit drug use or tobacco use. Some of the workup in the hospital consisted of: Vital signs: Blood pressure 163/93, heart rate of 102, respiratory of 22, temperature of 97.1 Fahrenheit oral and pulse ox of 100% room air. Initial white blood cells 14.6 Sodium is 137, creatinine is 0.33, plasma lactic acid venous 3.0, calcium 7.0, magnesium is 1.8, AST of 34 and ALT of 36. Urinalysis negative for urinary tract infection Coronavirus PCR is nondetected. CT of the head is reported as no acute intracranial hemorrhage or midline shift. No significant change from prior studies. I personally reviewed the CT of the head there is no acute or subacute ischemia or interpretable hemorrhage. Review of Systems Review of system: The 12 point system was reviewed and apparent positive and negative per HPI. Past Medical History Past Medical History: Diabetes Mellitus, Hypertension, Memory Impairment, Osteoarthritis (OA), Sleep Apnea/CPAP/BIPAP Additional Past Medical History / Comment(s): carpal tunnel, back pain, left arm & leg pain, can't lift left arm up, ? palsy in side of face in past, frequent migraine headaches, [place] in left ear History of Any Multi-Drug Resistant Organisms: None Reported Past Surgical History: Tubal Ligation Additional Past Surgical History / Comment(s): Carpal Tunnel Surg on the left hand. Past Anesthesia/Blood Transfusion Reactions: No Reported Reaction Past Psychological History: Depression, Schizophrenia Smoking Status: Never smoker Past Alcohol Use History: None Reported Past Drug Use History: None Reported - Past Family History Father Family Medical History: Diabetes Mellitus, Hypertension Mother Family Medical History: Liver Disease, Thyroid Disorder Additional Family Medical History / Comment(s): hepatitis Medications and Allergies Home Medications Medication Instructions Recorded Confirmed Type Benazepril HCl [Lotensin] 40 mg PO BID 07/31/18 02/23/21 History Chlorthalidone 50 mg PO DAILY 07/31/18 02/23/21 History Montelukast Sodium [Singulair] 10 mg PO HS 10/21/19 02/23/21 History Amoxic-Pot Clav 875-125Mg 1 tab PO Q12HR 02/23/21 02/23/21 History [Augmentin 875-125] Baclofen [Lioresal] 10 mg PO BID 02/23/21 02/23/21 History Cetirizine HCl [Zyrtec] 10 mg PO TID 02/23/21 02/23/21 History Divalproex ER [Depakote ER] 250 mg PO DAILY 02/23/21 02/23/21 History Dulaglutide [Trulicity] 1.5 mg SQ Q7D 02/23/21 02/23/21 History Ergocalciferol [Vitamin D2 (1250 1,250 mcg PO Q7D 02/23/21 02/23/21 History Mcg = 32449 Iu)] Insulin Regular [HumuLIN R] 25 units SQ AC-LUNCH 02/23/21 02/23/21 History Insulin Regular [HumuLIN R] 60 units SQ AC-SUPPER 02/23/21 02/23/21 History Insulin Regular [HumuLIN R] 120 units SQ AC-BRKFST 02/23/21 02/23/21 History Ipratropium-Albuterol Nebulize 3 ml INHALATION RT-Q6H PRN 02/23/21 02/23/21 History [Duoneb 0.5 mg-3 mg/3 ml Soln] Triamcinolone 0.1% Cream [Kenalog 1 applicatio TOPICAL BID 02/23/21 02/23/21 History 0.1% Cream] metFORMIN HCL [Glucophage] 1,000 mg PO BID 02/23/21 02/23/21 History Allergies Allergy/AdvReac Type Severity Reaction Status Date / Time tetanus and diphtheria Allergy Unknown Verified 02/23/21 09:38 toxoids [tetanus & diphtheria toxoids] Physical Examination - Vital Signs Vital Signs: Vital Signs Temp Pulse Resp BP Pulse Ox 02/23/21 15:33 98 18 158/84 99 02/23/21 12:00 97.7 F 115 H 18 163/95 98 02/23/21 06:25 97.1 F L 102 H 22 163/93 100 Intake and Output 02/23/21 02/23/21 02/23/21 06:59 14:59 22:59 Output Total 700 Balance -700 Output: Urine 700 Other: Weight 85.275 kg GENERAL: The patient is lying in bed and is in moderate acute distress. CHEST: The heart rate is regular rate rhythm. No murmurs to auscultation. No carotid bruit bilaterally. LUNG: Clear to auscultation bilaterally no wheezing noted throughout. Not labored breathing. ABDOMEN/GI: Bowel sounds present in all 4 quadrants. No tenderness to palpation throughout. NEUROLOGICAL: Limited because of her cooperation (kept on saying she was extremely dizzy). Higher mental function: The patient is awake, alert, oriented to self, place. She correctly stated the year but for month stated it was December or January.. Patient is following commands. No aphasia and no neglect. Cranial nerves: The pupils are round, equal and reactive to light. Visual slater are hard to assess (and attempted multiple times but seems inconsistent every time). Extraocular movement is intact no nystagmus is noted. Facial sensation is normal to touch throughout. The facial strength is normal throughout. Hearing is mildly to moderately decreased bilaterally to hand rub. Tongue is midline and moved [id number] without any difficulty. No dysarthria is noted. Shoulder shrug is normal bilaterally. Motor: Gait is deferred because of dizziness. The strength is moving all extremities above gravity. It was limited since her dizziness but does not appear any focality. Normal tone and bulk. Cerebellum: Normal finger to nose bilaterally. Sensation: Sensation is normal to touch throughout. Reflexes (right/left): 2+ throughout. Plantars are downgoing bilaterally. Results - Laboratory Findings CBC and BMP: 02/23/21 08:49 02/23/21 08:49 Abnormal Lab Findings: Abnormal Labs 02/23/21 02/23/21 02/23/21 08:49 08:49 08:49 WBC 14.6 H Neutrophils # 12.6 H APTT 19.9 L Carbon Dioxide Creatinine Glucose Plasma Lactic Acid Theron ALT Urine Protein Trace H Urine Glucose (UA) 4+ H Urine Ketones 3+ H 02/23/21 02/23/21 08:49 08:49 WBC Neutrophils # APTT Carbon Dioxide 20 L Creatinine 0.33 L Glucose 367 H Plasma Lactic Acid Theron 3.0 H* ALT 36 H Urine Protein Urine Glucose (UA) Urine Ketones Assessment and Plan Assessment: Acute vertigo: Rule out central cause vs peripheral (appears peripheral especially since was told she has acute left ear infection in the last one week) Left ear infection in the last one week (was perscribed Augmentin by her PCP Bilateral hearing loss (left > right) for past 2-3 years and follows-up with ENT Diabetes mellitus and on presentation her blood sugar was 367 Hypertension History of migraine History of schizophrenia Depression Plan: In the ED the patient was given Ativan then was given a one-time dose of m eclizine. Was started on meclizine 25 [employer] tablet twice a day when necessary and I changed it to scheduled 1 tab qid. She was given Zofran 4 mg once in the ED and started on 4 mg every 8 hours. I gave patient Valium 5mg once. Ordered MRI Brain with IAC w/ and w/o but patient stated she has bladder stimulator (will verify if MRI compatabile). Ordered CTA of head and neck. She was given aspirin 325 once in the ED. Every 4 hours neuro checks We'll defer the rest of the medical management to the primary team The plan is discussed with the patient and her nurse. Thank you for the consultation Clifford Lorenzo MD Neuro-Hospitalist Time with Patient: Greater than 30
[2021-02-23] MEDS: MECLIZINE 25 MG TAB PO SCH ×3 (17:06→23:37)
[2021-02-23] MEDS ORDERED: IPRATROPIUM-ALBUTEROL 3 ML NEB INHALATION PRN (18:00)
[2021-02-23 18:06] LABS: Amylase 47 U/L (30-110); Lipase 49 U/L (23-300)
--- NOTE | 2021-02-23 19:59 | CT ---
EXAMINATION TYPE: CT angio head neck DATE OF EXAM: 02/23/2021 COMPARISON: HISTORY: dizziness CT DLP: 383.7 mGycm Automated exposure control for dose reduction was used. CONTRAST: Performed with IV Contrast, patient injected with 65cc mL of Isovue 370. There are 3-D post processed images. Images obtained from the aortic arch to the vertex of the brain with IV contrast. There is normal branching pattern of the great vessels on the aortic arch. There is bilateral arteria l flow in the subclavian arteries. There is arterial flow in the common internal and external carotid arteries bilaterally. There is wide patency of the carotid artery bifurcations. There is arterial fl ow in both vertebral arteries. There is no evidence of carotid or vertebral artery aneurysm or dissec tion. There is arterial flow in the anterior middle and posterior cerebral arteries. There is arterial flow in the vertebrobasilar artery system. There is normal enhancement of the venous sinuses. There is no mass effect. There is no evidence of intracranial aneurysm or neovascularity. There is no evidence o f intracranial hemodynamic stenosis. IMPRESSION: Negative CT angiogram of the neck. Negative CT angiogram of the brain.
[2021-02-23 21:51] LABS: Glucose,Whole Blood 337 mg/dL (75-99)
[2021-02-23] MEDS ORDERED: Alteplase PER PHARMACY Stroke 1 EACH MISC MISCELLANE PRN (21:57)
[2021-02-23] MEDS ORDERED: ALTEPLASE BOLUS 1 MG/1 ML SYRINGE IV STA (21:57)
[2021-02-23] MEDS ORDERED: ALTEPLASE BOLUS FOR STROKE 8 MG in EMPTY SYRINGE 1 SYR IV STA (22:04)
[2021-02-23] MEDS ORDERED: ALTEPLASE 69 MG in EMPTY BAG 1 BAG IV STA (22:04)
--- NOTE | 2021-02-23 22:45 | CT ---
CT scan the brain. History weakness. Comparison today FINDINGS: Ventricles have normal size. There is no mass effect nor midline shift. There is no sign of intracran ial hemorrhage. Calvarium is intact. Skull base is intact. There is normal aeration of the mastoid si nuses. IMPRESSION: Negative CT scan of the brain. No change.
[2021-02-23 22:59] LABS: Basophils % (A) 0 %; Eosinophils % (A) 0 %; HGB 13.9 gm/dL (11.4-16.0); Lymphocytes # (A) 2.2 k/uL (1.0-4.8); Lymphocytes % (A) 19 %; MCH 29.1 pg (25.0-35.0); MCHC 33.9 g/dL (31.0-37.0); MCV 85.9 fL (80.0-100.0); Mean Platelet Volume 8.7; Monocytes # (A) 0.4 k/uL (0-1.0); Monocytes % (A) 3 %; Neutrophils # (A) 8.6 k/uL (1.3-7.7); Neutrophils % (A) 76 %; Platelet Count 239 k/uL (150-450); RBC 4.77 m/uL (3.80-5.40); RDW 12.6 % (11.5-15.5); WBC 11.3 k/uL (3.8-10.6)
[2021-02-23] MEDS ORDERED: SODIUM CHLORIDE 0.9% 50 ML MINI-BAG IV ONE ×2 (22:59→23:06)
--- NOTE | 2021-02-23 22:59 | CT ---
EXAMINATION TYPE: CODE STROKE: CTA head neck DATE OF EXAM: 02/23/2021 COMPARISON: Today HISTORY: cva CT DLP: 380.8 mGycm Automated exposure control for dose reduction was used. CONTRAST: Performed with IV Contrast, patient injected with 65cc mL of Isovue 370. There are 3-D post processed images. Images obtained from the aortic arch to the vertex of the brain with IV contrast. There is normal branching pattern of the great vessels on the aortic arch. There is arterial flow in the common internal and external carotid arteries bilaterally. There is arterial flow in both vertebr al arteries. There is arterial flow in both subclavian arteries. There is arterial flow in the verteb robasilar artery system. There is no evidence of carotid or vertebral artery aneurysm or dissection. There is wide patency of the carotid artery bifurcations. There is arterial flow in the anterior middle and posterior cerebral arteries. There is no mass effec t. There is no evidence of intracranial aneurysm or neovascularity. There is normal enhancement of th e venous sinuses. There is no evidence of intracranial arterial stenosis. There is no mass effect. IMPRESSION: Negative CT angiogram of the neck. Negative CT angiogram of the brain. No change.
[2021-02-23 23:13] LABS: ALT 32 U/L (4-34); AST 25 U/L (14-36); African American GFR (CKD) >90 (>60 ml/min/1.73 sqM); Albumin 4.1 g/dL (3.5-5.0); Albumin/Globulin Ratio 1.5; Alkaline Phosphatase 83 U/L (38-126); Anion Gap 10 mmol/L; Blood Urea Nitrogen 6 mg/dL (7-17); Calcium 9.4 mg/dL (8.4-10.2); Carbon Dioxide 21 mmol/L (22-30); Chloride 104 mmol/L (98-107); Globulin 2.8 g/dL; Glucose 263 mg/dL (74-99); Non-African American GFR(CKD) >90 (>60 ml/min/1.73 sqM); Potassium 3.7 mmol/L (3.5-5.1); Sodium 135 mmol/L (137-145); Total Bilirubin 0.8 mg/dL (0.2-1.3); Total Protein 6.9 g/dL (6.3-8.2)
[2021-02-23 23:36] LABS: Prothrombin Time 10.3 sec (9.0-12.0)
[2021-02-23] MEDS: lisinopriL 20 MG TAB PO SCH (23:36)
[2021-02-23] MEDS: metFORMIN 500 MG TAB PO SCH (23:36)
[2021-02-23] MEDS: MONTELUKAST 10 MG TAB PO SCH (23:36)
[2021-02-23] MEDS: DIVALPROEX ER 250 MG TAB.ER.24H PO SCH (23:37)
[2021-02-24 00:31] LABS: Partial Thromboplastin Time 20.2 sec (22.0-30.0)
[2021-02-24] MEDS: SODIUM CHLORIDE 0.9% 1,000 ML IV SCH ×3 (06:04→18:12)
[2021-02-24] MEDS ORDERED: INSULIN REGULAR 100 UNIT/ML VIAL (IM/SQ) SQ SCH ×3 (07:30→17:30)
[2021-02-24 08:23] LABS: Glucose,Whole Blood 300 mg/dL (75-99)
[2021-02-24] MEDS ORDERED: NON FORMULARY DRUG (Dulaglutide [Trulicity] 1.5 MG/0.5 ML Each) SQ SCH (09:00)
[2021-02-24] MEDS ORDERED: PANTOPRAZOLE 40 MG/10 ML VIAL IV SCH (09:00)
--- NOTE | 2021-02-24 09:00 | US ---
EXAMINATION TYPE: US abdomen complete DATE OF EXAM: 02/23/2021 COMPARISON: Ultrasound 10/18/2019, CT scan 10/18/2019 CLINICAL HISTORY: vomiting. vertigo and vomiting EXAM MEASUREMENTS: Liver Length: 18.8 cm Gallbladder Wall: 0.2 cm CBD: 0.4 cm Spleen: 10.6 cm Right Kidney: 11.0 x 5.8 x 4.6 cm Left Kidney: 11.7 x 5.7 x 4.8 cm Pancreas: not seen due to bowel gas Liver: unable to visualize left lobe, difficult to penetrate, slightly enlarged Gallbladder: wnl Evidence for sonographic Grant's sign: no CBD: wnl Spleen: wnl Right Kidney: wnl Left Kidney: wnl Upper IVC: wnl Abd Aorta: limited views appear wnl No ascites is evident. Kidneys show normal cortical medullary differentiation. IMPRESSION: Exam is limited. Correlate for hepatocellular disease, hepatic steatosis, there is hepato megaly
--- NOTE | 2021-02-24 09:53 | P.HPIM ---
History of Present Illness H&P Date: 02/23/21 Gertrudis Best, is a 50 year old male who presented to [facility] emergency room with a chief complaint of dizziness with multiple episodes of vomiting that started around 3 AM He was evaluated in the emergency room vital examination on presentation revealed Testing in the emergency room revealed elevated white blood cell count 11.3, negative troponin. Amylase and lipase within normal limits. COVID-19 negative. EKG normal sinus rhythm. Head CT showing no acute intracranial hemorrhage or midline shift noticing change from prior exam. Patient was admitted to medical floor for further evaluation and treatment Past medical history is significant for diabetes mellitus, hypertension, memory impairment, osteoarthritis, sleep apnea, carpal tunnel, back pain, frequent migraine headaches depression and schizophrenia On review of systems patient is resting comfortably in bed. Patient is complaining of nausea and vomiting. Will order ultrasound of abdomen to assess gallbladder. Neurology service is consulted. Patient started on Antivert. Patient also started on Rocephin for elevated white blood cell count. Review of Systems please refer to HPI otherwise unremarkable Past Medical History Past Medical History: Diabetes Mellitus, Hypertension, Memory Impairment, Osteoarthritis (OA), Sleep Apnea/CPAP/BIPAP Additional Past Medical History / Comment(s): carpal tunnel, back pain, left arm & leg pain, can't lift left arm up, ? palsy in side of face in past, frequent migraine headaches, [id number] in left ear History of Any Multi-Drug Resistant Organisms: None Reported Past Surgical History: Tubal Ligation Additional Past Surgical History / Comment(s): Carpal Tunnel Surg on the left hand. Past Anesthesia/Blood Transfusion Reactions: No Reported Reaction Past Psychological History: Depression, Schizophrenia Smoking Status: Never smoker Past Alcohol Use History: None Reported Past Drug Use History: None Reported - Past Family History Father Family Medical History: Diabetes Mellitus, Hypertension Mother Family Medical History: Liver Disease, Thyroid Disorder Additional Family Medical History / Comment(s): hepatitis Medications and Allergies Home Medications Medication Instructions Recorded Confirmed Type Benazepril HCl [Lotensin] 40 mg PO BID 07/31/18 02/23/21 History Chlorthalidone 50 mg PO DAILY 07/31/18 02/23/21 History Montelukast Sodium [Singulair] 10 mg PO HS 10/21/19 02/23/21 History Amoxic-Pot Clav 875-125Mg 1 tab PO Q12HR 02/23/21 02/23/21 History [Augmentin 875-125] Baclofen [Lioresal] 10 mg PO BID 02/23/21 02/23/21 History Cetirizine HCl [Zyrtec] 10 mg PO TID 02/23/21 02/23/21 History Divalproex ER [Depakote ER] 250 mg PO DAILY 02/23/21 02/23/21 History Dulaglutide [Trulicity] 1.5 mg SQ Q7D 02/23/21 02/23/21 History Ergocalciferol [Vitamin D2 (1250 1,250 mcg PO Q7D 02/23/21 02/23/21 History Mcg = 53635 Iu)] Insulin Regular [HumuLIN R] 25 units SQ AC-LUNCH 02/23/21 02/23/21 History Insulin Regular [HumuLIN R] 60 units SQ AC-SUPPER 02/23/21 02/23/21 History Insulin Regular [HumuLIN R] 120 units SQ AC-BRKFST 02/23/21 02/23/21 History Ipratropium-Albuterol Nebulize 3 ml INHALATION RT-Q6H PRN 02/23/21 02/23/21 History [Duoneb 0.5 mg-3 mg/3 ml Soln] Triamcinolone 0.1% Cream [Kenalog 1 applicatio TOPICAL BID 02/23/21 02/23/21 History 0.1% Cream] metFORMIN HCL [Glucophage] 1,000 mg PO BID 02/23/21 02/23/21 History Allergies Allergy/AdvReac Type Severity Reaction Status Date / Time tetanus and diphtheria Allergy Unknown Verified 02/23/21 09:38 toxoids [tetanus & diphtheria toxoids] Physical Exam Vitals: Vital Signs Temp Pulse Pulse Resp BP BP Pulse Ox 02/23/21 16:20 97.7 F 104 H 18 138/96 99 02/23/21 15:33 98 18 158/84 99 02/23/21 12:00 97.7 F 115 H 18 163/95 98 02/23/21 06:25 97.1 F L 102 H 22 163/93 100 Intake and Output 02/23/21 02/23/21 02/23/21 06:59 14:59 22:59 Output Total 700 Balance -700 Output: Urine 700 Other: Weight 85.275 kg In general patient is alert and oriented x 3 in no distress HEENT head normocephalic and atraumatic Neck is supple no JVD no goiter no lymphadenopathy no carotid bruit Chest examination is clear to auscultation no crackles no wheezing Cardiac exam reveals regular heart sounds S1 and S2 no gallops no murmurs Abdomen is soft nontender no organomegaly with normal bowel sounds Extremity exam reveals no edema no cyanosis or clubbing Neurological examination reveals no gross focal deficits Results CBC & Chem 7: 02/23/21 22:46 02/23/21 22:46 Labs: Abnormal Lab Results - Last 24 Hours (Table) 02/23/21 02/23/21 02/23/21 Range/Units 08:49 08:49 08:49 WBC 14.6 H (3.8-10.6) k/uL Neutrophils # 12.6 H (1.3-7.7) k/uL APTT 19.9 L (22.0-30.0) sec Carbon Dioxide (22-30) mmol/L Creatinine (0.52-1.04) mg/dL Glucose (74-99) mg/dL Plasma Lactic Acid Theron (0.7-2.0) mmol/L ALT (4-34) U/L Urine Protein Trace H (Negative) Urine Glucose (UA) 4+ H (Negative) Urine Ketones 3+ H (Negative) 02/23/21 02/23/21 Range/Units 08:49 08:49 WBC (3.8-10.6) k/uL Neutrophils # (1.3-7.7) k/uL APTT (22.0-30.0) sec Carbon Dioxide 20 L (22-30) mmol/L Creatinine 0.33 L (0.52-1.04) mg/dL Glucose 367 H (74-99) mg/dL Plasma Lactic Acid Theron 3.0 H* (0.7-2.0) mmol/L ALT 36 H (4-34) U/L Urine Protein (Negative) Urine Glucose (UA) (Negative) Urine Ketones (Negative) Assessment and Plan Plan: Severe vertigo Nausea and vomiting Leukocytosis with elevated lactic acid Underlying history of insulin-dependent diabetes mellitus Underlying history of COPD Underlying history of hypertension At this time patient is admitted to medical floor She was started on IV fluid Neurology consultation was requested due to severe vertigo patient was started on meclizine Due to leukocytosis and elevated lactic acid will obtain ultrasound of the abdomen to rule out any gallbladder abnormality Will recheck labs in a.m. Will cover with IV Rocephin 1 g every 24 hours empirically Will follow closely Time with Patient: Greater than 30 (Greater than 60% of the total time spent in counseling and coordination of care)
--- NOTE | 2021-02-24 10:00 | P.PN ---
Subjective Progress Note Date: 02/24/21 Gertrudis Best, is a 50 year old male who presented to [facility] emergency room with a chief complaint of dizziness with multiple episodes of vomiting that started around 3 AM He was evaluated in the emergency room vital examination on presentation revealed Testing in the emergency room revealed elevated white blood cell count 11.3, negative troponin. Amylase and lipase within normal limits. COVID-19 negative. EKG normal sinus rhythm. Head CT showing no acute intracranial hemorrhage or midline shift noticing change from prior exam. Patient was admitted to medical floor for further evaluation and treatment Past medical history is significant for diabetes mellitus, hypertension, memory impairment, osteoarthritis, sleep apnea, carpal tunnel, back pain, frequent migraine headaches depression and schizophrenia On review of systems patient is resting comfortably in bed. Patient is complaining of nausea and vomiting. Will order ultrasound of abdomen to assess gallbladder. Neurology service is consulted. Patient started on Antivert. Patient also started on Rocephin for elevated white blood cell count. On 02/24/2021 yesterday at 2247 code stroke was called due to patient having left-sided weakness. CT of the head completed showing negative computed tomography scan of the brain no change. CTA performed showing negative CT angiogram of the neck and negative CT angiogram of the brain. On exam today patient is still having significant left-sided weakness. Neurology services are following. MRI of the brain has been ordered but per nursing staff unable to do due to bladder stimulator. Patient is on telemetry services. At this time will consult cardiology services 2-D echo and carotid Doppler will also be ordered. Abdominal ultrasound completed showing correlation for hepatocellular disease hepatic stenosis and hepatomegaly. Will order hepatitis B and hepatitis C profiles. Patient also having limited oral intake will hold patient's home insulin dose and start patient on sliding scale coverage. At this time patient denies chest pain or shortness of breath. Patient is still complaining of some nausea. Patient denies any urinary burning or frequency. Lab work currently pending Objective - Vital Signs Vital signs: Vital Signs Temp 98.7 F 02/24/21 07:00 Pulse 83 02/24/21 07:00 Resp 18 02/24/21 07:00 BP 129/79 02/24/21 07:00 Pulse Ox 98 02/24/21 07:00 Intake & Output 02/23/21 02/24/21 02/24/21 18:59 06:59 18:59 Intake Total 620 Output Total 700 Balance -80 Weight 85.275 kg Intake: Oral 620 Output: Urine 700 Other: Voiding Method Bedpan # Voids 3 - Exam Head normocephalic Neck supple Lungs clear to auscultation bilaterally no wheezing or crackles Heart regular rate and rhythm S1-S2, no rub or gallop Abdomen is soft nontender nondistended positive bowel sounds no hepatosplenomegaly Extremities no edema Neuro alert and orientated to 3 area left-sided weakness to upper and lower extremities. Left-sided facial droop - Labs CBC & Chem 7: 02/23/21 22:46 02/23/21 22:46 Labs: Abnormal Lab Results - Last 24 Hours (Table) 02/23/21 02/23/21 02/23/21 Range/Units 08:49 08:49 08:49 WBC 14.6 H (3.8-10.6) k/uL Neutrophils # 12.6 H (1.3-7.7) k/uL APTT 19.9 L (22.0-30.0) sec Sodium (137-145) mmol/L Carbon Dioxide (22-30) mmol/L BUN (7-17) mg/dL Creatinine (0.52-1.04) mg/dL Glucose (74-99) mg/dL POC Glucose (mg/dL) (75-99) mg/dL Urine Protein Trace H (Negative) Urine Glucose (UA) 4+ H (Negative) Urine Ketones 3+ H (Negative) 02/23/21 02/23/21 02/23/21 Range/Units 21:50 22:46 22:46 WBC 11.3 H (3.8-10.6) k/uL Neutrophils # 8.6 H (1.3-7.7) k/uL APTT 20.2 L (22.0-30.0) sec Sodium (137-145) mmol/L Carbon Dioxide (22-30) mmol/L BUN (7-17) mg/dL Creatinine (0.52-1.04) mg/dL Glucose (74-99) mg/dL POC Glucose (mg/dL) 337 H (75-99) mg/dL Urine Protein (Negative) Urine Glucose (UA) (Negative) Urine Ketones (Negative) 02/23/21 02/24/21 Range/Units 22:46 08:21 WBC (3.8-10.6) k/uL Neutrophils # (1.3-7.7) k/uL APTT (22.0-30.0) sec Sodium 135 L (137-145) mmol/L Carbon Dioxide 21 L (22-30) mmol/L BUN 6 L (7-17) mg/dL Creatinine 0.36 L (0.52-1.04) mg/dL Glucose 263 H (74-99) mg/dL POC Glucose (mg/dL) 300 H (75-99) mg/dL Urine Protein (Negative) Urine Glucose (UA) (Negative) Urine Ketones (Negative) Assessment and Plan Plan: Left-sided weakness secondary to suspected CVA Severe vertigo Nausea and vomiting Leukocytosis with elevated lactic acid Underlying history of insulin-dependent diabetes mellitus. Home insulin on hold. Sliding scale coverage added Underlying history of COPD Underlying history of hypertension Hepatocellular disease seen on ultrasound will order hep panel At this time patient is admitted to medical floor Neurology services are following Patient is currently on telemetry MRI of the brain ordered unable to do at this time due to bladder stimulator Carotid Doppler and 2-D echo ordered Cardiology consult placed Will cover with IV Rocephin 1 g every 24 hours empirically Will follow closely
--- NOTE | 2021-02-24 10:04 | P.PN ---
Subjective Progress Note Date: 02/24/21 The patient is seen at bedside and said is doing worse compared to her initial presentation. She had acute left sided weakness at around 2100ish on 02/23/2021. Stroke code was activated. Repeat CT of the head was done and is reported as negative CT scan of the brain. No change. Repeat CT angiography of the head and neck is reported as negative. Per the patient's nurse the the team yesterday spoke with the stroke team and no IV TPA since outside the window. According to the patient's nurse there is improvement today that she's having more strength on the left side compared to yesterday. Per the patient she felt some improvement with Valium regarding her dizziness. Objective - Vital Signs Vital signs: Vital Signs Temp 98.7 F 02/24/21 07:00 Pulse 83 02/24/21 07:00 Resp 18 02/24/21 07:00 BP 129/79 02/24/21 07:00 Pulse Ox 98 02/24/21 07:00 Intake & Output 02/23/21 02/24/21 02/24/21 18:59 06:59 18:59 Intake Total 620 Output Total 700 Balance -80 Weight 85.275 kg Intake: Oral 620 Output: Urine 700 Other: Voiding Method Bedpan # Voids 3 - Exam GENERAL: The patient is lying in bed and is in moderate acute distress. NEUROLOGICAL: Somewhat limited compared to her cooperation (since continues to feels dizzy). Higher mental function: The patient is awake, alert, oriented to self, place. Patient is following simple commands. No aphasia and no neglect. Cranial nerves: The pupils are round, equal and reactive to light. Visual slater are hard to assess but seems intact in bilateral lowers but uppers were inconsistent. Extraocular movement is ?minimal horizontal nystagmus looking to left (over left eye). Facial sensation is normal to touch throughout. The facial strength is mild left lower facial weakness. Hearing is mildly to moderately decreased bilaterally to hand rub. Tongue is midline and moved [id number] without any difficulty. No dysarthria is noted. Shoulder shrug is normal bilaterally. Motor: Gait is deferred because of dizziness. The strength is has weakness over left side (upper > lower). Was able to lift the left upper extremity above gravity on her own and squeeze hand. Also to lift left lower extremity above gravity but both drop to bed (per nurse improvement compared to yesterday). Right sided is 5/5. Decrease tone over the left side. Normal bulk. Cerebellum: Normal finger to nose over the right but could not perform left because of weakness. Sensation: Sensation is normal to touch throughout. Reflexes (right/left): 2+ throughout. Plantars are downgoing bilaterally. WORK-UP: Hernandez virus is nondetected CT of the head is reported as no acute intracranial hemorrhage or midline shift. No significant change from prior studies. I personally reviewed the CT of the head there is no acute or subacute ischemia or interpretable hemorrhage. CT angiography of the head and neck was reported as negative. Repeat CT of the head was done and is reported as negative CT scan of the brain. No change. Repeat CT angiography of the head and neck is reported as negative. - Labs CBC & Chem 7: 02/24/21 06:56 02/24/21 06:56 Labs: Abnormal Lab Results - Last 24 Hours (Table) 02/23/21 02/23/21 02/23/21 Range/Units 08:49 08:49 08:49 WBC 14.6 H (3.8-10.6) k/uL Neutrophils # 12.6 H (1.3-7.7) k/uL APTT 19.9 L (22.0-30.0) sec Sodium (137-145) mmol/L Carbon Dioxide (22-30) mmol/L BUN (7-17) mg/dL Creatinine (0.52-1.04) mg/dL Glucose (74-99) mg/dL POC Glucose (mg/dL) (75-99) mg/dL Plasma Lactic Acid Theron (0.7-2.0) mmol/L Urine Protein Trace H (Negative) Urine Glucose (UA) 4+ H (Negative) Urine Ketones 3+ H (Negative) 02/23/21 02/23/21 02/23/21 Range/Units 08:49 21:50 22:46 WBC 11.3 H (3.8-10.6) k/uL Neutrophils # 8.6 H (1.3-7.7) k/uL APTT (22.0-30.0) sec Sodium (137-145) mmol/L Carbon Dioxide (22-30) mmol/L BUN (7-17) mg/dL Creatinine (0.52-1.04) mg/dL Glucose (74-99) mg/dL POC Glucose (mg/dL) 337 H (75-99) mg/dL Plasma Lactic Acid Theron 3.0 H* (0.7-2.0) mmol/L Urine Protein (Negative) Urine Glucose (UA) (Negative) Urine Ketones (Negative) 02/23/21 02/23/21 02/24/21 Range/Units 22:46 22:46 08:21 WBC (3.8-10.6) k/uL Neutrophils # (1.3-7.7) k/uL APTT 20.2 L (22.0-30.0) sec Sodium 135 L (137-145) mmol/L Carbon Dioxide 21 L (22-30) mmol/L BUN 6 L (7-17) mg/dL Creatinine 0.36 L (0.52-1.04) mg/dL Glucose 263 H (74-99) mg/dL POC Glucose (mg/dL) 300 H (75-99) mg/dL Plasma Lactic Acid Theron (0.7-2.0) mmol/L Urine Protein (Negative) Urine Glucose (UA) (Negative) Urine Ketones (Negative) Assessment and Plan Assessment: Acute vertigo with left hemiparesis: Likely acute ischemic stroke (and seems posterior circulation stroke). No IV tpa since outside window. Left ear infection in the last one week (was perscribed Augmentin by her PCP Bilateral hearing loss (left > right) for past 2-3 years and follows-up with ENT Diabetes mellitus and on presentation her blood sugar was 367 Hypertension History of migraine History of schizophrenia Depression Plan: I started the patient on aspirin 81 mg and Plavix 75 mg daily. Also started the patient on the Lipitor 40 mg daily at bedtime for secondary stroke prophylaxis. Pending MRI Brain with IAC w/ and w/o but patient stated she has bladder stimulator (will verify if MRI compatabile). Lipid panel and the 2-D echo is ordered and is pending Carotid duplex is ordered by the primary team which is not needed from a ne urological perspective especially to the patient had too CT angiography of the head and neck. Continue neuro checks Patient is on the cardiac monitoring PT OT and MATERIALS HANDLER are consulted. We'll give an additional 5 mg of Valium. Continue meclizine 25 mg 1 tablet 4 times a day scheduled. Patient is on Zofran 4 mg every 8 hours. We'll defer the rest of medical management to primary team The plan is discussed with the patient and her nurse. UPDATE: I was notified by the patient's nurse that the patient's exam was inconsistent and she was lifting the left upper and lower extremity on her own and it did not seem with any difficulty and she was able to grab things on her left hand. MRI of the brain cannot be done in our facility because of bladder stimulator. We attempted the to get the patient to have the MRI at [facility] but no availability today. I'll attempt to get a repeat CT of the head tomorrow to see if there is any changes. Clifford Lorenzo MD Neuro-Hospitalist Time with Patient: Less than 30
[2021-02-24] MEDS ORDERED: DIAZEPAM 5 MG/ML 2 ML INJ IVP STA (10:16)
[2021-02-24] MEDS: CLOPIDOGREL 75 MG TAB PO SCH (10:34)
[2021-02-24] MEDS: lisinopriL 20 MG TAB PO SCH ×2 (10:34→21:49)
[2021-02-24] MEDS: ASPIRIN 81 MG PO SCH (10:34)
[2021-02-24] MEDS: INSULIN ASPART (NovoLOG) 100 UNIT/ML VIAL SQ SCH ×3 (10:55→21:49)
[2021-02-24] MEDS: metFORMIN 500 MG TAB PO SCH (11:13)
[2021-02-24 11:27] LABS: Basophils # (A) 0.03 X 10*3/uL (0.00-0.10); Basophils % (A) 0.3 %; Eosinophils # (A) 0.09 X 10*3/uL (0.04-0.35); HCT 38.8 % (37.2-46.3); HGB 12.9 g/dL (12.0-15.0); Lymphocytes # (A) 2.53 X 10*3/uL (0.90-5.00); Lymphocytes % (A) 27.9 %; MCH 28.9 pg (27.0-32.0); MCHC 33.2 g/dL (32.0-37.0); MCV 86.8 fL (80.0-97.0); Mean Platelet Volume 11.5 fL (9.5-12.2); Monocytes # (A) 0.48 X 10*3/uL (0.20-1.00); Monocytes % (A) 5.3 %; Neutrophils # (A) 5.92 X 10*3/uL (1.80-7.70); Neutrophils % (A) 65.3 %; Platelet Count 241 X 10*3/uL (140-440); RBC 4.47 X 10*6/uL (4.10-5.20); RDW 12.3 % (11.5-14.5); WBC 9.07 X 10*3/uL (4.50-10.00)
[2021-02-24 11:36] LABS: Chol/HDL Ratio 4.79 Ratio; LDL Cholesterol,Calculated 128.6 mg/dL (0.0-131.0)
[2021-02-24 11:37] LABS: African American GFR (CKD) 139.8 (60.0-200.0); Albumin/Globulin Ratio 1.9 (1.60-3.17); Anion Gap 12.1 mmol/L (10.00-18.00); Blood Urea Nitrogen 8.4 mg/dL (9.0-27.0); Carbon Dioxide 21.9 mmol/L (20.0-27.5); Globulin 2.1 g/dL (1.6-3.3); Non-African American GFR(CKD) 120.6 (60.0-200.0); Potassium 3.6 mmol/L (3.5-5.5); Total Bilirubin 0.6 mg/dL (0.30-1.20); Total Protein 6.1 g/dL (6.2-8.2)
--- NOTE | 2021-02-24 11:43 | US ---
EXAMINATION TYPE: US carotid duplex BILAT DATE OF EXAM: 02/24/2021 COMPARISON: NONE CLINICAL HISTORY: stroke. EXAM MEASUREMENTS: RIGHT: Peak Systolic Velocity (PSV) cm/sec ----- Right CCA: 122 ----- Right ICA: 89.9 ----- Right ECA: 142 ICA/CCA ratio: 0.7 RIGHT: End Diastole cm/sec ----- Right CCA: 23.2 ----- Right ICA: 41.2 ----- Right ECA: 18.7 LEFT: Peak Systolic Velocity (PSV) cm/sec ----- Left CCA: 142 ----- Left ICA: 93.6 ----- Left ECA: 109 ICA/CCA ratio: 0.7 LEFT: End Diastole cm/sec ----- Left CCA: 31.5 ----- Left ICA: 31.5 ----- Left ECA: 20.7 VERTEBRALS (direction of flow): Right Vertebral: Antegrade Left Vertebral: Antegrade Rhythm: Normal Grayscale, color Doppler, spectral Doppler imaging performed of the carotid arteries. Waveform analys is does not show significant stenosis of the internal carotid arteries. No elevated velocities IMPRESSION: No hemodynamic significant stenosis of the proximal internal carotid arteries by Doppler criteria, an indirect measurement of carotid stenosis Criteria for Assigning % of Stenosis / Diameter reduction (Estimation based on the indirect measurements of the internal carotid artery velocities (ICA PSV). 1. Normal (no stenosis)=ICA PSV < 125 cm/s: ratio < 2.0: ICA EDV<40 cm/s. 2. Less than 50% stenosis=ICA PSV < 125 cm/s: ratio < 2.0: ICA EDV<40 cm/s. 3. 50 to 69% stenosis=ICA PSV of 125 to 230 cm/s: ration 2.0 ? 4.0: ICA EDV 40-100 cm/s. 4. Greater than 70% stenosis to near occlusion= ICA PSV > 230 cm/s: ratio > 4.0: ICA EDV > 100 cm/s. 5. Near occlusion= ICA PSV velocities may be low or undetectable: variable ratio and ICA EDV. 6. Total occlusion=unable to detect flow.
[2021-02-24] MEDS: DIVALPROEX ER 250 MG TAB.ER.24H PO SCH (11:53)
[2021-02-24] MEDS: MECLIZINE 25 MG TAB PO SCH ×4 (11:53→21:49)
--- NOTE | 2021-02-24 12:01 | ECHOF ---
Referral Reason:stroke MEASUREMENTS -------- HEIGHT: 162.6 cm WEIGHT: 85.7 kg BP: RVIDd: 3.2 cm (< 3.3) IVSd: 0.9 cm (0.6 - 1.1) LVIDd: 4.0 cm (3.9 - 5.3) LVPWd: 1.2 cm (0.6 - 1.1) IVSs: 1.3 cm LVIDs: 2.3 cm LVPWs: 1.4 cm LAESV Index (A-L): 31.51 ml/m Ao Diam: 2.9 cm (2.0 - 3.7) AV Cusp: 2.0 cm (1.5 - 2.6) LA Diam: 4.4 cm (2.7 - 3.8) MV EXCURSION: 17.009 mm (> 18.000) MV EF SLOPE: 90 mm/s (70 - 150) EPSS: 0.5 cm MV E Matthias: 0.93 m/s MV DecT: 266 ms MV A Matthias: 0.89 m/s MV E/A Ratio: 1.05 RAP: 5.00 mmHg RVSP: 30.34 mmHg FINDINGS -------- Sinus rhythm. This was a technically adequate study. The left ventricular size is normal. Left ventricular wall thickness is normal. Overall left vent ricular systolic function is normal with, an EF between 55 - 60 %. The diastolic filling pattern is normal for the age of the patient 12.81. The right ventricle is normal in size. LA is midly dilated 29-33ml/m2. The right atrial size is normal. Interatrial and interventricular septum intact. The aortic valve is trileaflet and appears structurally normal. There is no evidence of aortic regu rgitation. There is no evidence of aortic stenosis. Mild mitral regurgitation is present. Mild tricuspid regurgitation present. There is no evidence of pulmonary hypertension. The right v entricular systolic pressure, as measured by Doppler, is 30.34mmHg. Trace/mild (physiologic) pulmonic regurgitation. The aortic root size is normal. IVC Not well visulized. There is no pericardial effusion. CONCLUSIONS -------- 1. The left ventricular size is normal. 2. Left ventricular wall thickness is normal. 3. Overall left ventricular systolic function is normal with, an EF between 55 - 60 %. 4. The diastolic filling pattern is normal for the age of the patient 12.81 5. LA is midly dilated 29-33ml/m2. 6. Mild mitral regurgitation is present. 7. Mild tricuspid regurgitation present. 8. Trace/mild (physiologic) pulmonic regurgitation. GROUP ART SUPERVISOR: Lakesha Valdes RDCS
[2021-02-24 12:15] LABS: Glucose,Whole Blood 310 mg/dL (75-99)
--- NOTE | 2021-02-24 12:23 | P.CRDCN ---
History of Present Illness History of present illness: HISTORY OF PRESENT ILLNESS: This is a 50 year old female with a past medical history significant for vertigo, hypertension, diabetes, migraines, schizophrenia, and depression. Patient follows with a sign shop supervisor. We have been asked to see the patient in consultation for CVA. Patient examined at the bedside. Patient initially presented to the hospital with dizziness. A CT scan performed at that time was negative for CVA. A code stroke was called last night due to new onset left sided weakness. Repeat CT was done which was also negative. Patient underwent CT angiogram of the neck and the brain which was also negative. She had an echocardiogram completed revealing EF 55-60%, mild mitral regurgitation, and mild tricuspid regurgitation. Carotid Doppler performed which did not reveal any significant stenosis of either internal carotid artery. Apparently the patient can not have a MRI performed due to a bladder stimulator. EKG performed revealing sinus mechanism. Telemetry reviewed with no signs of atrial fibrillation. The patient denies chest pain or pressure. Denies shortness of breath. She denies palpitations. REVIEW OF SYSTEMS: At the time of my exam: CONSTITUTIONAL: Denies fever or chills. HEENT: Denies blurred vision, vision changes, or eye pain. Denies hemoptysis CARDIOVASCULAR: Denies chest pain. Denies orthopnea. Denies PND. Denies palpitations RESPIRATORY: Denies shortness of breath. GASTROINTESTINAL: Denies abdominal pain. Denies nausea or vomiting. HEMATOLOGIC: Denies bleeding disorders. GENITOURINARY: Denies any blood in urine. SKIN: Denies pruitis. Denies rash. PHYSICAL EXAM: VITAL SIGNS: Reviewed. GENERAL: Well-developed in no acute distress. HEENT: Head is normocephalic. Pupils are equal, round. Sclerae anicteric. Mucous membranes of the mouth are moist. Neck supple. No JVD or thyromegaly LUNGS: Respirations even and unlabored. Lungs essentially clear to auscultation bilaterally. HEART: Regular rate and rhythm. S1 and S2 heard. ABDOMEN: Soft. Nondistended. Nontender. EXTREMITIES: Left sided weakness. No clubbing or cyanosis. Peripheral pulses intact. No lower extremity edema NEUROLOGIC: Awake and alert. Oriented x 3. ASSESSMENT: Vertigo Left sided weakness, r/o CVA Hypertension Diabetes Migraines Schizophrenia Depression PLAN: 2D echo obtained and reviewed Continue telemetry monitoring Continue aspirin, plavix, and lipitor per neurology No plans for event monitor or MIK at this time Further recommendations pending patient course Nurse practitioner note has been reviewed by physician. Signing provider agrees with the documented findings, assessment, and plan of care. Past Medical History Past Medical History: Diabetes Mellitus, Hypertension, Memory Impairment, Osteoarthritis (OA), Sleep Apnea/CPAP/BIPAP Additional Past Medical History / Comment(s): carpal tunnel, back pain, left arm & leg pain, can't lift left arm up, ? palsy in side of face in past, frequent migraine headaches, [place] in left ear History of Any Multi-Drug Resistant Organisms: None Reported Past Surgical History: Tubal Ligation Additional Past Surgical History / Comment(s): Carpal Tunnel Surg on the left hand. Past Anesthesia/Blood Transfusion Reactions: No Reported Reaction Past Psychological History: Depression, Schizophrenia Smoking Status: Never smoker Past Alcohol Use History: None Reported Past Drug Use History: None Reported - Past Family History Father Family Medical History: Diabetes Mellitus, Hypertension Mother Family Medical History: Liver Disease, Thyroid Disorder Additional Family Medical History / Comment(s): hepatitis Medications and Allergies Home Medications Medication Instructions Recorded Confirmed Type Benazepril HCl [Lotensin] 40 mg PO BID 07/31/18 02/23/21 History Chlorthalidone 50 mg PO DAILY 07/31/18 02/23/21 History Montelukast Sodium [Singulair] 10 mg PO HS 10/21/19 02/23/21 History Amoxic-Pot Clav 875-125Mg 1 tab PO Q12HR 02/23/21 02/23/21 History [Augmentin 875-125] Baclofen [Lioresal] 10 mg PO BID 02/23/21 02/23/21 History Cetirizine HCl [Zyrtec] 10 mg PO TID 02/23/21 02/23/21 History Divalproex ER [Depakote ER] 250 mg PO DAILY 02/23/21 02/23/21 History Dulaglutide [Trulicity] 1.5 mg SQ Q7D 02/23/21 02/23/21 History Ergocalciferol [Vitamin D2 (1250 1,250 mcg PO Q7D 02/23/21 02/23/21 History Mcg = 26909 Iu)] Insulin Regular [HumuLIN R] 25 units SQ AC-LUNCH 02/23/21 02/23/21 History Insulin Regular [HumuLIN R] 60 units SQ AC-SUPPER 02/23/21 02/23/21 History Insulin Regular [HumuLIN R] 120 units SQ AC-BRKFST 02/23/21 02/23/21 History Ipratropium-Albuterol Nebulize 3 ml INHALATION RT-Q6H PRN 02/23/21 02/23/21 History [Duoneb 0.5 mg-3 mg/3 ml Soln] Triamcinolone 0.1% Cream [Kenalog 1 applicatio TOPICAL BID 02/23/21 02/23/21 History 0.1% Cream] metFORMIN HCL [Glucophage] 1,000 mg PO BID 02/23/21 02/23/21 History Allergies Allergy/AdvReac Type Severity Reaction Status Date / Time tetanus and diphtheria Allergy Unknown Verified 02/23/21 09:38 toxoids [tetanus & diphtheria toxoids] Physical Exam Vitals: Vital Signs Temp Pulse Pulse Pulse Resp BP BP 02/24/21 07:00 98.7 F 83 18 02/24/21 01:52 98.3 F 76 16 121/76 02/23/21 21:55 98.3 F 128 H 16 166/90 02/23/21 20:00 104 H 16 02/23/21 19:56 98.3 F 104 H 16 157/83 02/23/21 16:20 97.7 F 104 H 18 02/23/21 15:33 98 18 158/84 02/23/21 12:00 97.7 F 115 H 18 163/95 BP Pulse Ox 02/24/21 07:00 129/79 98 02/24/21 01:52 94 L 02/23/21 21:55 94 L 02/23/21 20:00 02/23/21 19:56 97 02/23/21 16:20 138/96 99 02/23/21 15:33 99 02/23/21 12:00 98 Intake and Output 02/23/21 02/24/21 02/24/21 22:59 06:59 14:59 Intake Total 620 Output Total 700 Balance -80 Intake: Oral 620 Output: Urine 700 Other: Voiding Method Bedpan # Voids 1 3 Weight 85.275 kg Results 02/24/21 06:56 02/24/21 06:56 Cardiac Enzymes 02/23/21 Range/Units 22:46 AST 25 (14-36) U/L Coagulation 02/23/21 Range/Units 22:46 PT 10.3 (9.0-12.0) sec APTT 20.2 L (22.0-30.0) sec CBC 02/23/21 Range/Units 22:46 WBC 11.3 H (3.8-10.6) k/uL RBC 4.77 (3.80-5.40) m/uL Hgb 13.9 (11.4-16.0) gm/dL Hct 41.0 (34.0-46.0) % Plt Count 239 (150-450) k/uL Comprehensive Metabolic Panel 02/23/21 Range/Units 22:46 Sodium 135 L (137-145) mmol/L Potassium 3.7 (3.5-5.1) mmol/L Chloride 104 (98-107) mmol/L Carbon Dioxide 21 L (22-30) mmol/L BUN 6 L (7-17) mg/dL Creatinine 0.36 L (0.52-1.04) mg/dL Glucose 263 H (74-99) mg/dL Calcium 9.4 (8.4-10.2) mg/dL AST 25 (14-36) U/L ALT 32 (4-34) U/L Alkaline Phosphatase 83 (38-126) U/L Total Protein 6.9 (6.3-8.2) g/dL Albumin 4.1 (3.5-5.0) g/dL Current Medications Generic Name Dose Route Start Last Admin Trade Name Freq PRN Reason Stop Dose Admin Acetaminophen 650 mg 02/23/21 11:12 Acetaminophen Tab 325 Mg Tab PO Q6HR PRN Mild Pain or Fever > 100.5 Albuterol/Ipratropium 3 ml 02/23/21 18:00 Ipratropium-Albuterol 3 Ml Neb INHALATION RT-Q6H PRN Shortness Of Breath Aspirin 81 mg 02/24/21 10:15 02/24/21 10:34 Aspirin 81 Mg PO 81 mg DAILY REBECCA Administration Atorvastatin Calcium 40 mg 02/24/21 21:00 Atorvastatin 40 Mg Tab PO HS REBECCA Clopidogrel Bisulfate 75 mg 02/24/21 10:15 02/24/21 10:34 Clopidogrel 75 Mg Tab PO 75 mg DAILY REBECCA Administration Divalproex Sodium 250 mg 02/23/21 18:30 02/23/21 23:37 Divalproex Er 250 Mg Tab.Er.24h PO 250 mg DAILY REBECCA Administration Sodium Chloride 1,000 mls @ 100 mls/hr 02/23/21 11:15 02/24/21 10:38 Saline 0.9% IV Not Given .Q10H REBECCA Ceftriaxone Sodium 1 gm/ 50 mls @ 100 mls/hr 02/23/21 17:15 02/23/21 18:53 Sodium Chloride IVPB 100 mls/hr Q24H REBECCA Administration Insulin Aspart 0 unit 02/24/21 12:30 02/24/21 10:55 Insulin Aspart (Novolog) 100 Unit/Ml Vial SQ 5 unit ACHS REBECCA Administration Protocol Lisinopril 40 mg 02/23/21 21:00 02/24/21 10:34 Lisinopril 20 Mg Tab PO 40 mg BID REBECCA Administration Lorazepam 0.5 mg 02/23/21 11:12 Lorazepam 2 Mg/Ml Inj IV Q6HR PRN Anxiety Meclizine HCl 25 mg 02/23/21 16:45 02/23/21 23:37 Meclizine 25 Mg Tab PO 25 mg QID REBECCA Administration Montelukast Sodium 10 mg 02/23/21 21:00 02/23/21 23:36 Montelukast 10 Mg Tab PO 10 mg HS REBECCA Administration Naloxone HCl 0.2 mg 02/23/21 11:12 Naloxone 0.4 Mg/Ml 1 Ml Vial IV Q2M PRN Opioid Reversal Ondansetron HCl 4 mg 02/23/21 11:12 02/23/21 16:54 Ondansetron 4 Mg/2 Ml Vial IVP 4 mg Q8HR PRN Administration Nausea And Vomiting Pantoprazole Sodium 40 mg 02/24/21 09:00 02/24/21 10:34 Pantoprazole 40 Mg/10 Ml Vial IV 40 mg DAILY REBECCA Administration Intake and Output 02/23/21 02/24/21 02/24/21 22:59 06:59 14:59 Intake Total 620 Output Total 700 Balance -80 Intake: Oral 620 Output: Urine 700 Other: Voiding Method Bedpan # Voids 1 3 Weight 85.275 kg 02/23/21 22:46 02/23/21 22:46
[2021-02-24 16:50] LABS: Glucose,Whole Blood 213 mg/dL (75-99)
[2021-02-24 19:26] LABS: Hepatitis B Core IgM Nonreactive (Nonreactive); Hepatitis B Surface AB- Quant 3.5 mIU/mL; Hepatitis B Surface Antibody Nonreactive (Nonreactive); Hepatitis B Surface Antigen Nonreactive (Nonreactive); Hepatitis C IgG Antibody Nonreactive (Nonreactive)
[2021-02-24 20:34] LABS: Glucose,Whole Blood 215 mg/dL (75-99)
[2021-02-24] MEDS: MONTELUKAST 10 MG TAB PO SCH (21:49)
[2021-02-24] MEDS: ATORVASTATIN 40 MG TAB PO SCH (21:49)
[2021-02-25 06:09] LABS: Glucose,Whole Blood 172 mg/dL (75-99)
[2021-02-25] MEDS: PANTOPRAZOLE 40 MG TABLET PO SCH (06:17)
[2021-02-25] MEDS: INSULIN ASPART (NovoLOG) 100 UNIT/ML VIAL SQ SCH ×4 (06:17→20:44)
[2021-02-25] MEDS: SODIUM CHLORIDE 0.9% 1,000 ML IV SCH ×2 (06:35→13:21)
[2021-02-25] MEDS ORDERED: O PO SCH ×2 (07:30)
--- NOTE | 2021-02-25 08:39 | CT ---
EXAMINATION TYPE: CT brain wo con DATE OF EXAM: 02/25/2021 HISTORY: Left sided weakness CT DLP: 1086.4 mGycm. Automated Exposure Control for Dose Reduction was Utilized. TECHNIQUE: CT scan of the head is performed without contrast. COMPARISON: CT brain 2 days ago. FINDINGS: There is no acute intracranial hemorrhage or midline shift identified. There is mild diff use ventricular and sulcal prominence consistent with diffuse age-related cerebral atrophy redemonstr ated. Duarte-white matter differentiation is maintained. Mild mucosal thickening involving ethmoid sinu ses bilaterally remains present. The globes are intact bilaterally. IMPRESSION: No acute intracranial hemorrhage or midline shift. No significant change from CT 2 days earlier.
[2021-02-25] MEDS: CLOPIDOGREL 75 MG TAB PO SCH (09:43)
[2021-02-25] MEDS: ASPIRIN 81 MG PO SCH (09:43)
[2021-02-25] MEDS: lisinopriL 20 MG TAB PO SCH ×2 (09:43→20:44)
[2021-02-25] MEDS: DIVALPROEX ER 250 MG TAB.ER.24H PO SCH (09:44)
[2021-02-25] MEDS: MECLIZINE 25 MG TAB PO SCH ×4 (09:44→20:43)
--- NOTE | 2021-02-25 10:42 | P.PN ---
Subjective Progress Note Date: 02/25/21 I personally saw the patient today and she states that she continues to feel dizzy and she continues to have left-sided weakness. Today the nurse notified me that she was able to walk on her own without any assistance. Objective - Vital Signs Vital signs: Vital Signs Temp 98.3 F 02/25/21 08:00 Pulse 86 02/25/21 08:00 Resp 20 02/25/21 08:00 BP 146/90 02/25/21 08:00 Pulse Ox 99 02/25/21 08:00 Intake & Output 02/24/21 02/25/21 02/25/21 18:59 06:59 18:59 Intake Total 50 240 Output Total 600 Balance -550 240 Intake: Intake, IV Titration 50 Amount cefTRIAXone 1 gm In 50 Sodium Chloride 0.9% 50 ml @ 100 mls/hr IVPB Q24H [facility] Rx#:[id number] Oral 240 Output: Urine 600 Other: Voiding Method Bedpan # Voids 1 1 - Exam GENERAL: The patient is lying in bed and is in moderate acute distress. NEUROLOGICAL: Higher mental function: The patient is awake, alert, oriented to self, place. Patient is following simple commands. No aphasia and no neglect. Cranial nerves: The pupils are round, equal and reactive to light. Visual slater are hard to assess but seems intact in bilateral lowers but uppers were inconsistent. Extraocular movement inormal. Facial sensation is normal to touch throughout. The facial strength is normal. Tongue is midline and moved [id number] without any difficulty. No dysarthria is noted. Shoulder shrug is normal bilaterally. Motor: Gait is deferred because of dizziness. Regarding the strength exam just before I examined the patient patient basically was a putting the clothes on herself and was using the her left upper extremity to cover herself and lift up the blanket on her own and was moving it without any difficulty both the right and the left upper extremity as well as was moving the left lower extremity but then on examination the patient was having difficulty lifting the left upper and lower extremity above gravity and was inconsistent. The strength over right side was moving above gravity without any difficulty. Again the patient's on examination was given poor effort on the left side on examination a prior to examination she was able to lift it up. Normal bulk. Cerebellum: Normal finger to nose over the right but could not perform left. Sensation: Sensation is normal to touch throughout. Reflexes (right/left): 2+ throughout. Plantars are downgoing bilaterally. WORK-UP: Lipid panel is triglyceride of 172, cholesterol is 206, LDLs 128, HDL is 43. Hernandez virus is nondetected CT of the head is reported as no acute intracranial hemorrhage or midline shift. No significant change from prior studies. I personally reviewed the CT of the head there is no acute or subacute ischemia or interpretable hemorrhage. CT angiography of the head and neck was reported as negative. Repeat CT of the head was done and is reported as negative CT scan of the brain. No change. Repeat CT angiography of the head and neck is reported as negative. Repeat CT of the head today on 02/25/2021 is reported as no acute intracranial hemorrhage or midline shift. No significant change from CT 2 days ago. Carotid duplex is reported as no hemodynamic significant stenosis of the proximal internal carotid arteries by Doppler criteria, and indirect measurement of carotid stenosis. 2-D echo was reported as left ventricle wall thickness is normal. Ejection fraction of 55-60%. Left atrium is mildly dilated. - Labs CBC & Chem 7: 02/24/21 06:56 02/24/21 06:56 Labs: Abnormal Lab Results - Last 24 Hours (Table) 02/24/21 02/24/21 02/24/21 Range/Units 06:56 06:56 12:13 BUN 8.4 L (9.0-27.0) mg/dL Creatinine 0.4 L (0.6-1.5) mg/dL BUN/Creatinine Ratio 21.00 H (12.00-20.00) Ratio Glucose 234 H (70-110) mg/dL POC Glucose (mg/dL) 310 H (75-99) mg/dL Total Protein 6.1 L (6.2-8.2) g/dL Triglycerides 172.00 H (0.00-149.00) mg/dL Cholesterol 206.00 H (0.00-200.00) mg/dL 02/24/21 02/24/21 02/25/21 Range/Units 16:47 20:32 06:08 BUN (9.0-27.0) mg/dL Creatinine (0.6-1.5) mg/dL BUN/Creatinine Ratio (12.00-20.00) Ratio Glucose (70-110) mg/dL POC Glucose (mg/dL) 213 H 215 H 172 H (75-99) mg/dL Total Protein (6.2-8.2) g/dL Triglycerides (0.00-149.00) mg/dL Cholesterol (0.00-200.00) mg/dL Assessment and Plan Assessment: * Acute vertigo with left hemiparesis: On examination seems functional and poor effort (to my examination and on two different nurse AM nurse on 02/24 and 02/25). Her symptoms does not appear to be due to stroke (multiple images are negative. Cannot get MRI Brain since has bladder stimulator). Rule out Factitious disorder vs conversion disorder vs malingering * Reported Left ear infection in the last one week (was perscribed Augmentin by her PCP * Reported Bilateral hearing loss (left > right) for past 2-3 years and follows- up with ENT * Diabetes mellitus and on presentation her blood sugar was 367 * Hypertension * Reported History of migraine * Reported History of schizophrenia * Reported history of Depression Plan: * She is on aspirin 81mg and Plavix 75mg daily. I stopped the Plavix since this is does not seem like a stroke. She is on Lipitor 40 mg and I'll defer the use of statin to the primary team. * I spoke with the psychiatry team and he stated that that he felt like this was a poor effort and she was a not giving consistent history regarding her psych and the the patient kicked the psychiatry team out of the room. Patient is not, and forward with any of her psych problems or any stressors. * Continue neuro checks * Patient is on the cardiac monitoring * PT OT and CONVENTIONS ASSISTANT are consulted. * We'll defer the rest of medical management to primary team. * Upon discharge I recommend the patient to follow-up with a neurologist and psychiatry team as an outpatient then 2-3 weeks. The plan is discussed with the patient, psychiatry team and her nurse. There is no further workup needed from a neurological perspective. We will sign off. Please reconsult if needed. Clifford Lorenzo MD Neuro-Hospitalist Time with Patient: Less than 30
--- NOTE | 2021-02-25 11:04 | P.CN ---
Psychiatric Consult - . Consult date: 02/25/21 Consult:: 02/25/21 11:03 IDENTIFYING DATA: This patient is a single, unemployed, on SSI, 50-year-old female who presented to the hospital with a chief complaint of dizziness. HISTORY OF PRESENT ILLNESS: The patient presented to the hospital on 02/22/21, who presents to the emergency department with a chief complaint of dizziness and vomiting. During this hospitalization, the patient had acute left-sided weakness on 02/20/2021 approximately at 2100. The patient was evaluated by the neurologist who noted that the patient's nurse noticed that the patient's exam was inconsistent and she was lifting the left upper and lower extremity on her own and did not seem to have any difficulty and she was able to grab things on her left hand. The patient does have bladder stimulator and was unable to undergo an MRI. CT was negative. Psychiatry has been consulted to evaluate the patient as she has a reported history of schizophrenia and her behaviors and guarded history warranted psychiatric evaluation. When evaluated by the psychiatrist, the patient reports that she is feeling "okay." She does not report any suicidal or homicidal ideation, intention, and/or plan. She does report a history of depression but states, "Since I started my pills I am good. No more suicidal thoughts." This provider asked her which pills specifically as her home medications do not include any psychotropic medication aside from a low dose of depakote. She could not identify which one. The patient does report that she has been diagnosed with schizophrenia. Review of the patient's chart reveal that schizophrenia and depression were added to her medical chart in between April 2018 and August 2019. The patient reports to this provider that she has "heart voices all my life." She could not specify when they started. Further exploration of the auditory hallucinations bothered the patient and she became tearful and upset that she was being asked about her psychiatric symptoms. She terminated the interview. PAST PSYCHIATRIC HISTORY: Patient reports a history of depression and schizophrenia. Patient states she is on medication for these but chart review only reveals depakote. Patient denies any previous psychiatric hospitalizations. She reports she sees a provider at "[facility]" in [place]. Patient denies any history of suicide attempts in the past. PAST MEDICAL HISTORY: Past Medical History: Diabetes Mellitus, Hypertension, Memory Impairment, Osteoarthritis (OA), Sleep Apnea/CPAP/BIPAP Additional Past Medical History / Comment(s): carpal tunnel, back pain, left arm & leg pain, can't lift left arm up, ? palsy in side of face in past, frequent migraine headaches, GRINDSTONE in left ear History of Any Multi-Drug Resistant Organisms: None Reported Past Surgical History: Tubal Ligation Additional Past Surgical History / Comment(s): Carpal Tunnel Surg on the left hand. Past Anesthesia/Blood Transfusion Reactions: No Reported Reaction Past Psychological History: Depression, Schizophrenia Smoking Status: Never smoker Past Alcohol Use History: None Reported Past Drug Use History: None Reported ALLERGIES:Tetanus and Diptheria toxoid. CHEMICAL DEPENDENCY HISTORY: Could not assess. Patient terminated interview. FAMILY PSYCHIATRIC/SUBSTANCE USE HISTORY: Unable to obtain. SOCIAL HISTORY: Patient was born and raised in [place]. Never finished high school. Receives SSI for "schizophrenia and mental problem." MENTAL STATUS EXAM: General Appearance: Patient appears to be stated age is alert and cooperative initially. Patient appears to have fair hygiene and grooming wearing hospital gown with fair eye contact. Nails and hair are well kept. Behavior: Patient is calmly lying in bed without any agitated behavior. She does keep her left arm under the blanket but does display some pulling of the blanket with her left hand. Speech: Patient's speech is fluent and nonpressured. Mood/Affect: Patient reports their mood is "okay", affect is initially calm but later upset and crying. Suicidality/Homicidality: Patient denies having any suicidal or homicidal ideation intent or plan. Perceptions: Patient reports auditory hallucinations but no visual hallucinations. Though content/process: No delusional thought content endorsed. Memory and concentration: AOX3, grossly intact for the purposes of this session. Can spell "WORLD" backwards Judgment and insight: unable to assess IMPRESSIONS: Unspecified Neurological Disorder Rule out Conversion Disorder with weakness or paralysis vs Factitious Disorder vs Malingering This provider is questioning the previous diagnosis of schizophrenia for this patient. She appears to have no history of psychiatric hospitalizations, no antipsychotic medication regimen, no affective symptoms, and no negative symptoms of schizophrenia. She only reported auditory hallucinations which she is very guarded in providing any detail. Furthermore the patient reports auditory hallucinations that have been ongoing "all my life" which is inconsistent with most schizophrenia diagnoses as severe mental illnesses such as schizophrenia and bipolar disorder typically manifest in the 20s to late 30s. She reported following with an outpatient psychiatric provider but due to the holiday we are unable to confirm. Unable to determine Factitious vs Malingering as we cannot identify if there is secondary gain or not. Conversion disorder would be my working diagnosis once Neurological and Medical work up is complete and other medical pathology is ruled out. PLAN: -At this time patient DOES NOT meet criteria for inpatient psychiatric admission. -Would recommend the following medication changes/additions: No psychiatric medications are recommended at this time. -Continue your medical management and evaluation. -Psychiatry will sign off at this point, please contact with any questions. 02/25/21 11:03
--- NOTE | 2021-02-25 11:04 | P.PN ---
Subjective Progress Note Date: 02/25/21 Principal diagnosis: Vertigo, intractable nausea and vomiting This is Perez perla NP, dictating a progress note on behalf of Dr. Wilkerson. Patient was interviewed and examined. Patient is a pleasant 50-year-old female who initially presented to the hospital for vertigo, and intractable nausea and vomiting. Patient had an echo completed which is found to be normal. Patient's blood pressures also within normal limits. After fluid hydration it appears the patient's tachycardia is resolved. Patient demonstrates PACs and PVCs on telemetry. EKG demonstrates normal sinus rhythm. GENERAL: Well-appearing, well-nourished and in no acute distress. NECK: Supple without JVD or thyromegaly. LUNGS: Breath sounds clear to auscultation bilaterally. Respiration equal and unlabored. No wheezes, rales or rhonchi. HEART: Regular rate and rhythm without murmurs, rubs or gallops. S1 and S2 heard. EXTREMITIES: Normal range of motion, no edema. No clubbing or cyanosis. Peripheral pulses intact and strong. VITALS: [Temp 98.3, pulse rate 86, respirations 20, blood pressure 146/95, O2 saturation 99% on room air] TELEMETRY: PACs and PVCs LABS: [White count 9.07, hemoglobin 12.9, platelets 241, PT 10.3, INR 1.0, sodium 137, potassium 3.6, B1 8.4, creatinine 0.4, calcium 9.0, magnesium 1.8, troponin less than 0.012, triglycerides 172, cholesterol 206, LDL 128, HDL 43] IMPRESSION/PLAN: 1. Tachycardia-most likely due to dehydration. Continue IV fluid hydration. This can be managed by the medical service. 2. Vertigo-no underlying cardiac etiology noted at this time. No further workup is recommended or required at this time. If the patient's co ndition changes please do not hesitate to notify us. Objective - Vital Signs Vital signs: Vital Signs Temp 98.3 F 02/25/21 08:00 Pulse 86 02/25/21 08:00 Resp 20 02/25/21 08:00 BP 146/90 02/25/21 08:00 Pulse Ox 99 02/25/21 08:00 Intake & Output 02/24/21 02/25/21 02/25/21 18:59 06:59 18:59 Intake Total 50 240 Output Total 600 Balance -550 240 Intake: Intake, IV Titration 50 Amount cefTRIAXone 1 gm In 50 Sodium Chloride 0.9% 50 ml @ 100 mls/hr IVPB Q24H [facility] Rx#:[id number] Oral 240 Output: Urine 600 Other: Voiding Method Bedpan # Voids 1 1 - Labs CBC & Chem 7: 02/24/21 06:56 02/24/21 06:56 Labs: Abnormal Lab Results - Last 24 Hours (Table) 02/24/21 02/24/21 02/24/21 Range/Units 06:56 06:56 12:13 BUN 8.4 L (9.0-27.0) mg/dL Creatinine 0.4 L (0.6-1.5) mg/dL BUN/Creatinine Ratio 21.00 H (12.00-20.00) Ratio Glucose 234 H (70-110) mg/dL POC Glucose (mg/dL) 310 H (75-99) mg/dL Total Protein 6.1 L (6.2-8.2) g/dL Triglycerides 172.00 H (0.00-149.00) mg/dL Cholesterol 206.00 H (0.00-200.00) mg/dL 02/24/21 02/24/21 02/25/21 Range/Units 16:47 20:32 06:08 BUN (9.0-27.0) mg/dL Creatinine (0.6-1.5) mg/dL BUN/Creatinine Ratio (12.00-20.00) Ratio Glucose (70-110) mg/dL POC Glucose (mg/dL) 213 H 215 H 172 H (75-99) mg/dL Total Protein (6.2-8.2) g/dL Triglycerides (0.00-149.00) mg/dL Cholesterol (0.00-200.00) mg/dL
[2021-02-25 11:37] LABS: Amphetamine Screen,Urine Not Detected (NotDetected); Barbiturate Screen,Urine Not Detected (NotDetected); Benzodiazepines Screen,Urine Detected (NotDetected); Cocaine Screen,Urine Not Detected (NotDetected); Methadone Screen, Urine Not Detected (NotDetected); Opiate Screen,Urine Not Detected (NotDetected); Oxycodone Screen, Urine Not Detected (NotDetected); Phencyclidine Screen,Urine Not Detected (NotDetected); Tricyclic Antidepressant,Urine Not Detected (NotDetected); Urn Cannabinoid Scrn Not Detected (NotDetected)
[2021-02-25 11:53] LABS: Glucose,Whole Blood 210 mg/dL (75-99)
--- NOTE | 2021-02-25 13:57 | P.PN ---
Subjective Progress Note Date: 02/25/21 Gertrudis Best, is a 50 year old male who presented to [facility] emergency room with a chief complaint of dizziness with multiple episodes of vomiting that started around 3 AM He was evaluated in the emergency room vital examination on presentation revealed Testing in the emergency room revealed elevated white blood cell count 11.3, negative troponin. Amylase and lipase within normal limits. COVID-19 negative. EKG normal sinus rhythm. Head CT showing no acute intracranial hemorrhage or midline shift noticing change from prior exam. Patient was admitted to medical floor for further evaluation and treatment Past medical history is significant for diabetes mellitus, hypertension, memory impairment, osteoarthritis, sleep apnea, carpal tunnel, back pain, frequent migraine headaches depression and schizophrenia On review of systems patient is resting comfortably in bed. Patient is complaining of nausea and vomiting. Will order ultrasound of abdomen to assess gallbladder. Neurology service is consulted. Patient started on Antivert. Patient also started on Rocephin for elevated white blood cell count. On 02/24/2021 yesterday at 2247 code stroke was called due to patient having left-sided weakness. CT of the head completed showing negative computed tomography scan of the brain no change. CTA performed showing negative CT angiogram of the neck and negative CT angiogram of the brain. On exam today patient is still having significant left-sided weakness. Neurology services are following. MRI of the brain has been ordered but per nursing staff unable to do due to bladder stimulator. Patient is on telemetry services. At this time will consult cardiology services 2-D echo and carotid Doppler will also be ordered. Abdominal ultrasound completed showing correlation for hepatocellular disease hepatic stenosis and hepatomegaly. Will order hepatitis B and hepatitis C profiles. Patient also having limited oral intake will hold patient's home insulin dose and start patient on sliding scale coverage. At this time patient denies chest pain or shortness of breath. Patient is still complaining of some nausea. Patient denies any urinary burning or frequency. Lab work currently pending On 02/25/2021 patient was seen and examined on the telemetry floor she is alert and oriented 3 in no apparent distress she is still complaining of severe verti go and complaining of left sided weakness affecting her face left upper extremity and left lower extremity. Yesterday neurology suggested psychiatry consult, due to patient's symptoms not matching any of the testing results, she was evaluated today by psychiatry no psychiatric medication was recommended at this time no need for admission to the psychiatry unit. At this time patient is still complaining of severe symptoms will continue was current management with Antivert, will discuss with neurology further management steps Objective - Vital Signs Vital signs: Vital Signs Temp 98.4 F 02/25/21 13:18 Pulse 82 02/25/21 13:18 Resp 16 02/25/21 13:18 BP 146/77 02/25/21 13:18 Pulse Ox 98 02/25/21 13:18 Intake & Output 02/24/21 02/25/21 02/25/21 18:59 06:59 18:59 Intake Total 50 240 Output Total 600 Balance -550 240 Intake: Intake, IV Titration 50 Amount cefTRIAXone 1 gm In 50 Sodium Chloride 0.9% 50 ml @ 100 mls/hr IVPB Q24H [facility] Rx#:[id number] Oral 240 Output: Urine 600 Other: Voiding Method Bedpan Bedpan # Voids 1 1 - Exam Head normocephalic Neck supple Lungs clear to auscultation bilaterally no wheezing or crackles Heart regular rate and rhythm S1-S2, no rub or gallop Abdomen is soft nontender nondistended positive bowel sounds no hepatosplenomegaly Extremities no edema Neuro alert and orientated to 3 area left-sided weakness to upper and lower extremities. Left-sided facial droop - Labs CBC & Chem 7: 02/24/21 06:56 02/24/21 06:56 Labs: Abnormal Lab Results - Last 24 Hours (Table) 02/24/21 02/24/21 02/25/21 Range/Units 16:47 20:32 06:08 POC Glucose (mg/dL) 213 H 215 H 172 H (75-99) mg/dL U Benzodiazepines Scrn (NotDetected) 02/25/21 02/25/21 Range/Units 11:04 11:47 POC Glucose (mg/dL) 210 H (75-99) mg/dL U Benzodiazepines Scrn Detected H (NotDetected) Assessment and Plan Plan: Left-sided weakness secondary to suspected CVA Severe vertigo Nausea and vomiting Leukocytosis with elevated lactic acid Underlying history of insulin-dependent diabetes mellitus. Home insulin on hold. Sliding scale coverage added Underlying history of COPD Underlying history of hypertension Hepatocellular disease seen on ultrasound will order hep panel At this time patient is admitted to medical floor Neurology services are following Patient is currently on telemetry MRI of the brain ordered unable to do at this time due to bladder stimulator Carotid Doppler and 2-D echo ordered Cardiology consult placed Will cover with IV Rocephin 1 g every 24 hours empirically Will follow closely
[2021-02-25 15:00] LABS: ALT 32 U/L (4-34); AST 31 U/L (14-36); African American GFR (CKD) >90 (>60 ml/min/1.73 sqM); Albumin 3.5 g/dL (3.5-5.0); Alkaline Phosphatase 62 U/L (38-126); Anion Gap 8 mmol/L; Blood Urea Nitrogen 9 mg/dL (7-17); Calcium 8.9 mg/dL (8.4-10.2); Carbon Dioxide 25 mmol/L (22-30); Chloride 106 mmol/L (98-107); Glucose 231 mg/dL (74-99); Non-African American GFR(CKD) >90 (>60 ml/min/1.73 sqM); Potassium 3.6 mmol/L (3.5-5.1); Sodium 139 mmol/L (137-145); Total Bilirubin 0.5 mg/dL (0.2-1.3); Total Protein 6.1 g/dL (6.3-8.2)
[2021-02-25 15:06] LABS: Basophils % (A) 1 %; Eosinophils # (A) 0.1 k/uL (0-0.7); Eosinophils % (A) 2 %; HGB 13.7 gm/dL (11.4-16.0); Lymphocytes # (A) 2.6 k/uL (1.0-4.8); Lymphocytes % (A) 35 %; MCH 29.2 pg (25.0-35.0); MCHC 34.3 g/dL (31.0-37.0); MCV 85.2 fL (80.0-100.0); Mean Platelet Volume 8.3; Monocytes # (A) 0.2 k/uL (0-1.0); Monocytes % (A) 3 %; Neutrophils # (A) 4.3 k/uL (1.3-7.7); Neutrophils % (A) 58 %; Platelet Count 236 k/uL (150-450); RDW 12.8 % (11.5-15.5); WBC 7.4 k/uL (3.8-10.6)
[2021-02-25 16:44] LABS: Glucose,Whole Blood 173 mg/dL (75-99)
[2021-02-25] MEDS: ENOXAPARIN 40 MG/0.4 ML SYRINGE SQ SCH (17:29)
[2021-02-25 19:55] LABS: Glucose,Whole Blood 208 mg/dL (75-99)
[2021-02-25] MEDS: ATORVASTATIN 40 MG TAB PO SCH (20:44)
[2021-02-25] MEDS: MONTELUKAST 10 MG TAB PO SCH (20:44)
[2021-02-26] MEDS: SODIUM CHLORIDE 0.9% 1,000 ML IV SCH ×3 (04:41→17:45)
[2021-02-26 06:39] LABS: Glucose,Whole Blood 176 mg/dL (75-99)
[2021-02-26] MEDS: INSULIN ASPART (NovoLOG) 100 UNIT/ML VIAL SQ SCH ×4 (06:43→20:08)
[2021-02-26] MEDS: PANTOPRAZOLE 40 MG TABLET PO SCH (06:46)
[2021-02-26 08:51] LABS: Basophils # (A) 0.1 k/uL (0-0.2); Basophils % (A) 1 %; Eosinophils # (A) 0.1 k/uL (0-0.7); Eosinophils % (A) 2 %; HCT 39.5 % (34.0-46.0); HGB 13.4 gm/dL (11.4-16.0); Lymphocytes # (A) 2.4 k/uL (1.0-4.8); Lymphocytes % (A) 40 %; MCH 29.3 pg (25.0-35.0); MCV 86.2 fL (80.0-100.0); Mean Platelet Volume 8.1; Monocytes # (A) 0.2 k/uL (0-1.0); Monocytes % (A) 4 %; Neutrophils # (A) 3.1 k/uL (1.3-7.7); Neutrophils % (A) 51 %; Platelet Count 217 k/uL (150-450); RBC 4.58 m/uL (3.80-5.40); RDW 12.4 % (11.5-15.5); WBC 6.1 k/uL (3.8-10.6)
[2021-02-26 08:58] LABS: ALT 27 U/L (4-34); AST 22 U/L (14-36); Alkaline Phosphatase 63 U/L (38-126); Blood Urea Nitrogen 6 mg/dL (7-17); Calcium 8.7 mg/dL (8.4-10.2); Chloride 104 mmol/L (98-107); Glucose 240 mg/dL (74-99); Potassium 3.6 mmol/L (3.5-5.1); Sodium 138 mmol/L (137-145); Total Bilirubin 0.8 mg/dL (0.2-1.3)
[2021-02-26 09:11] LABS: African American GFR (CKD) >90 (>60 ml/min/1.73 sqM); Albumin 3.4 g/dL (3.5-5.0); Anion Gap 7 mmol/L; Carbon Dioxide 27 mmol/L (22-30); Non-African American GFR(CKD) >90 (>60 ml/min/1.73 sqM)
[2021-02-26] MEDS: lisinopriL 20 MG TAB PO SCH ×2 (09:29→20:02)
[2021-02-26] MEDS: DIVALPROEX ER 250 MG TAB.ER.24H PO SCH (09:29)
[2021-02-26] MEDS: MECLIZINE 25 MG TAB PO SCH ×4 (09:29→20:03)
[2021-02-26] MEDS: ENOXAPARIN 40 MG/0.4 ML SYRINGE SQ SCH (09:29)
[2021-02-26] MEDS: ASPIRIN 81 MG PO SCH (09:30)
--- NOTE | 2021-02-26 09:42 | P.PN ---
Subjective Progress Note Date: 02/26/21 Gertrudis Best, is a 50 year old male who presented to [facility] emergency room with a chief complaint of dizziness with multiple episodes of vomiting that started around 3 AM He was evaluated in the emergency room vital examination on presentation revealed Testing in the emergency room revealed elevated white blood cell count 11.3, negative troponin. Amylase and lipase within normal limits. COVID-19 negative. EKG normal sinus rhythm. Head CT showing no acute intracranial hemorrhage or midline shift noticing change from prior exam. Patient was admitted to medical floor for further evaluation and treatment Past medical history is significant for diabetes mellitus, hypertension, memory impairment, osteoarthritis, sleep apnea, carpal tunnel, back pain, frequent migraine headaches depression and schizophrenia On review of systems patient is resting comfortably in bed. Patient is complaining of nausea and vomiting. Will order ultrasound of abdomen to assess gallbladder. Neurology service is consulted. Patient started on Antivert. Patient also started on Rocephin for elevated white blood cell count. On 02/24/2021 yesterday at 2247 code stroke was called due to patient having left-sided weakness. CT of the head completed showing negative computed tomography scan of the brain no change. CTA performed showing negative CT angiogram of the neck and negative CT angiogram of the brain. On exam today patient is still having significant left-sided weakness. Neurology services are following. MRI of the brain has been ordered but per nursing staff unable to do due to bladder stimulator. Patient is on telemetry services. At this time will consult cardiology services 2-D echo and carotid Doppler will also be ordered. Abdominal ultrasound completed showing correlation for hepatocellular disease hepatic stenosis and hepatomegaly. Will order hepatitis B and hepatitis C profiles. Patient also having limited oral intake will hold patient's home insulin dose and start patient on sliding scale coverage. At this time patient denies chest pain or shortness of breath. Patient is still complaining of some nausea. Patient denies any urinary burning or frequency. Lab work currently pending On 02/25/2021 patient was seen and examined on the telemetry floor she is alert and oriented 3 in no apparent distress she is still complaining of severe verti go and complaining of left sided weakness affecting her face left upper extremity and left lower extremity. Yesterday neurology suggested psychiatry consult, due to patient's symptoms not matching any of the testing results, she was evaluated today by psychiatry no psychiatric medication was recommended at this time no need for admission to the psychiatry unit. At this time patient is still complaining of severe symptoms will continue was current management with Antivert, will discuss with neurology further management steps On 02/26/2021 patient's alert and oriented 3. Patient is still complaining of dizziness and left-sided headache. Per nursing staff patient has been moving all extremities equal has been ambulating in room. Patient denies chest pain or shortness breath. Patient denies nausea vomiting or diarrhea. Patient denies any urinary burning or frequency Objective - Vital Signs Vital signs: Vital Signs Temp 98.0 F 02/26/21 03:52 Pulse 75 02/26/21 03:52 Resp 18 02/26/21 03:52 BP 134/85 02/26/21 03:52 Pulse Ox 96 02/26/21 03:52 Intake & Output 02/25/21 02/26/21 02/26/21 18:59 06:59 18:59 Intake Total 840 840 Output Total 450 Balance 840 390 Weight 84.6 kg Intake: Intake, IV Titration 600 Amount Sodium Chloride 0.9% 1, 600 000 ml @ 100 mls/hr IV . Q10H REBECCA Rx#:[id number] Oral 840 240 Output: Urine 450 Other: Voiding Method Bedpan Bedpan # Voids 3 2 # Bowel Movements 1 - Exam Head normocephalic Neck supple Lungs clear to auscultation bilaterally no wheezing or crackles Heart regular rate and rhythm S1-S2, no rub or gallop Abdomen is soft nontender nondistended positive bowel sounds no hepatosplenomegaly Extremities no edema Neuro alert and orientated to 3 area left-sided weakness to upper and lower extremities. Left-sided facial droop - Labs CBC & Chem 7: 02/26/21 07:57 02/26/21 07:57 Labs: Abnormal Lab Results - Last 24 Hours (Table) 02/25/21 02/25/21 02/25/21 Range/Units 11:04 11:47 14:06 BUN (7-17) mg/dL Creatinine 0.51 L (0.52-1.04) mg/dL Glucose 231 H (74-99) mg/dL POC Glucose (mg/dL) 210 H (75-99) mg/dL Total Protein 6.1 L (6.3-8.2) g/dL Albumin (3.5-5.0) g/dL U Benzodiazepines Scrn Detected H (NotDetected) 02/25/21 02/25/21 02/26/21 Range/Units 16:41 19:44 06:24 BUN (7-17) mg/dL Creatinine (0.52-1.04) mg/dL Glucose (74-99) mg/dL POC Glucose (mg/dL) 173 H 208 H 176 H (75-99) mg/dL Total Protein (6.3-8.2) g/dL Albumin (3.5-5.0) g/dL U Benzodiazepines Scrn (NotDetected) 02/26/21 Range/Units 07:57 BUN 6 L (7-17) mg/dL Creatinine 0.41 L (0.52-1.04) mg/dL Glucose 240 H (74-99) mg/dL POC Glucose (mg/dL) (75-99) mg/dL Total Protein 6.0 L (6.3-8.2) g/dL Albumin 3.4 L (3.5-5.0) g/dL U Benzodiazepines Scrn (NotDetected) Assessment and Plan Plan: Left-sided weakness. Symptoms resolved. Per nursing neurology symptoms do not appear to be from stroke 2 multiple images that are negative. Rule out factitious disorder versus conversion disorder versus malingering. Psychiatry and neurology services are following Severe vertigo Nausea and vomiting Leukocytosis with elevated lactic acid. Resolved Underlying history of insulin-dependent diabetes mellitus. Home insulin on hold. Sliding scale coverage added Underlying history of COPD Underlying history of hypertension Hepatocellular disease seen on ultrasound will order hep panel At this time patient is admitted to medical floor Neurology services are following Psychiatry services are following Patient is currently on telemetry MRI of the brain ordered unable to do at this time due to bladder stimulator Cardiology consult placed Will cover with IV Rocephin 1 g every 24 hours empirically Will follow closely
[2021-02-26 11:47] LABS: Glucose,Whole Blood 198 mg/dL (75-99)
[2021-02-26 16:48] LABS: Glucose,Whole Blood 211 mg/dL (75-99)
[2021-02-26] MEDS: LORazepam 2 MG/ML INJ IV PRN (20:02)
[2021-02-26] MEDS: ATORVASTATIN 40 MG TAB PO SCH (20:03)
[2021-02-26] MEDS: MONTELUKAST 10 MG TAB PO SCH (20:03)
[2021-02-26 20:41] LABS: Glucose,Whole Blood 226 mg/dL (75-99)
[2021-02-27] MEDS: LORazepam 2 MG/ML INJ IV PRN (01:17)
[2021-02-27 06:30] LABS: Glucose,Whole Blood 271 mg/dL (75-99)
[2021-02-27] MEDS: INSULIN ASPART (NovoLOG) 100 UNIT/ML VIAL SQ SCH ×4 (06:42→20:51)
[2021-02-27] MEDS: SODIUM CHLORIDE 0.9% 1,000 ML IV SCH ×2 (06:43→18:40)
[2021-02-27] MEDS: PANTOPRAZOLE 40 MG TABLET PO SCH (06:43)
[2021-02-27] MEDS: ASPIRIN 81 MG PO SCH (08:42)
[2021-02-27] MEDS: lisinopriL 20 MG TAB PO SCH ×2 (08:42→20:20)
[2021-02-27] MEDS: ENOXAPARIN 40 MG/0.4 ML SYRINGE SQ SCH (08:43)
[2021-02-27] MEDS: MECLIZINE 25 MG TAB PO SCH ×4 (08:43→20:20)
[2021-02-27] MEDS: DIVALPROEX ER 250 MG TAB.ER.24H PO SCH (08:43)
[2021-02-27 08:59] LABS: Basophils % (A) 1 %; Eosinophils # (A) 0.2 k/uL (0-0.7); Eosinophils % (A) 2 %; HCT 39.2 % (34.0-46.0); HGB 13.6 gm/dL (11.4-16.0); Lymphocytes # (A) 2.3 k/uL (1.0-4.8); Lymphocytes % (A) 29 %; MCH 28.8 pg (25.0-35.0); MCHC 34.7 g/dL (31.0-37.0); MCV 82.9 fL (80.0-100.0); Mean Platelet Volume 8.4; Monocytes # (A) 0.3 k/uL (0-1.0); Monocytes % (A) 4 %; Neutrophils # (A) 4.9 k/uL (1.3-7.7); Neutrophils % (A) 63 %; Platelet Count 210 k/uL (150-450); RBC 4.72 m/uL (3.80-5.40); RDW 12.3 % (11.5-15.5); WBC 7.7 k/uL (3.8-10.6)
[2021-02-27 09:16] LABS: ALT 25 U/L (4-34); AST 21 U/L (14-36); African American GFR (CKD) >90 (>60 ml/min/1.73 sqM); Albumin 3.7 g/dL (3.5-5.0); Alkaline Phosphatase 90 U/L (38-126); Anion Gap 7 mmol/L; Blood Urea Nitrogen 10 mg/dL (7-17); Calcium 8.8 mg/dL (8.4-10.2); Carbon Dioxide 27 mmol/L (22-30); Chloride 104 mmol/L (98-107); Glucose 215 mg/dL (74-99); Non-African American GFR(CKD) >90 (>60 ml/min/1.73 sqM); Potassium 3.4 mmol/L (3.5-5.1); Sodium 138 mmol/L (137-145); Total Bilirubin 0.4 mg/dL (0.2-1.3); Total Protein 6.2 g/dL (6.3-8.2)
[2021-02-27 11:49] LABS: Glucose,Whole Blood 153 mg/dL (75-99)
[2021-02-27] MEDS ORDERED: POTASSIUM CHLORIDE ER 10 MEQ TAB.ER.PRT PO STA (12:45)
[2021-02-27 16:50] LABS: Glucose,Whole Blood 209 mg/dL (75-99)
[2021-02-27] MEDS: ATORVASTATIN 40 MG TAB PO SCH (20:20)
[2021-02-27] MEDS: MONTELUKAST 10 MG TAB PO SCH (20:20)
[2021-02-27 20:37] LABS: Glucose,Whole Blood 258 mg/dL (75-99)
[2021-02-28] MEDS: SODIUM CHLORIDE 0.9% 1,000 ML IV SCH ×3 (06:14→21:10)
[2021-02-28] MEDS: INSULIN ASPART (NovoLOG) 100 UNIT/ML VIAL SQ SCH ×4 (06:15→21:07)
[2021-02-28] MEDS: PANTOPRAZOLE 40 MG TABLET PO SCH (06:15)
[2021-02-28 06:36] LABS: Glucose,Whole Blood 202 mg/dL (75-99)
[2021-02-28] MEDS: lisinopriL 20 MG TAB PO SCH ×2 (08:53→21:07)
[2021-02-28] MEDS: ENOXAPARIN 40 MG/0.4 ML SYRINGE SQ SCH (08:53)
[2021-02-28] MEDS: DIVALPROEX ER 250 MG TAB.ER.24H PO SCH (08:53)
[2021-02-28] MEDS: ASPIRIN 81 MG PO SCH (08:53)
[2021-02-28] MEDS: MECLIZINE 25 MG TAB PO SCH ×4 (08:53→21:08)
[2021-02-28 11:48] LABS: Glucose,Whole Blood 205 mg/dL (75-99)
[2021-02-28] MEDS: LORazepam 2 MG/ML INJ IV PRN ×2 (14:07→21:16)
[2021-02-28 16:44] LABS: Glucose,Whole Blood 203 mg/dL (75-99)
--- NOTE | 2021-02-28 18:36 | P.PN ---
Subjective Progress Note Date: 02/27/21 Principal diagnosis: Intractable dizziness/nausea/vomiting Sinus tachycardia likely related to dehydration Acute vertigo with left hemiparesis 50 year old male who presented to [facility] emergency room with a chief complaint of dizziness with multiple episodes of vomiting that started around 3 AM He was evaluated in the emergency room vital examination on presentation revealed Testing in the emergency room revealed elevated white blood cell count 11.3, negative troponin. Amylase and lipase within normal limits. COVID-19 negative. EKG normal sinus rhythm. Head CT showing no acute intracranial hemorrhage or midline shift noticing change from prior exam. Patient was admitted to medical floor for further evaluation and treatment Patient continues to report episodes of severe dizziness on occasions even while laying in bed; patient has had extensive cardiac, neurological and psychiatric workup; patient insists that she hasn't been worked up properly for above said concerns and wants to be able to discuss this with Dr. Hurtado Objective - Vital Signs Vital signs: Vital Signs Temp 97.7 F 02/27/21 12:00 Pulse 91 02/27/21 12:00 Resp 20 02/27/21 12:00 BP 139/65 02/27/21 12:00 Pulse Ox 96 02/27/21 12:00 Intake & Output 02/26/21 02/27/21 02/27/21 18:59 06:59 18:59 Intake Total 387 200 Balance 387 200 Weight 84.3 kg Intake: Intake, IV Titration 150 200 Amount Sodium Chloride 0.9% 1, 100 200 000 ml @ 100 mls/hr IV . Q10H REBECCA Rx#:[id number] cefTRIAXone 1 gm In 50 Sodium Chloride 0.9% 50 ml @ 100 mls/hr IVPB Q24H REBECCA Rx#:[id number] Oral 237 Other: Voiding Method Bedpan Bedpan # Voids 0 1 - Exam PHYSICAL EXAMINATION: GENERAL: The patient is alert and oriented x3, not in any acute distress. Well developed, well nourished. HEENT: Pupils are round and equally reacting to light. EOMI. No scleral icterus. No conjunctival pallor. Normocephalic, atraumatic. No pharyngeal erythema. No thyromegaly. CARDIOVASCULAR: S1 and S2 present. No murmurs, rubs, or gallops. PULMONARY: Chest is clear to auscultation, no wheezing or crackles. ABDOMEN: Soft, nontender, nondistended, normoactive bowel sounds. No palpable organomegaly. MUSCULOSKELETAL: No joint swelling or deformity. EXTREMITIES: No cyanosis, clubbing, or pedal edema. NEUROLOGICAL: Gross neurological examination did not reveal any focal deficits. SKIN: No rashes. - Labs CBC & Chem 7: 02/27/21 08:33 02/27/21 08:33 Labs: Abnormal Lab Results - Last 24 Hours (Table) 02/26/21 02/26/21 02/27/21 Range/Units 16:46 19:57 06:01 Potassium (3.5-5.1) mmol/L Creatinine (0.52-1.04) mg/dL Glucose (74-99) mg/dL POC Glucose (mg/dL) 211 H 226 H 271 H (75-99) mg/dL Total Protein (6.3-8.2) g/dL 02/27/21 02/27/21 Range/Units 08:33 11:47 Potassium 3.4 L (3.5-5.1) mmol/L Creatinine 0.42 L (0.52-1.04) mg/dL Glucose 215 H (74-99) mg/dL POC Glucose (mg/dL) 153 H (75-99) mg/dL Total Protein 6.2 L (6.3-8.2) g/dL Assessment and Plan Assessment: Acute vertigo with left hemiparesis - Patient had extensive neurological workup done; was not given any TPA because of being outside the window; she was started on aspirin and Plavix 75 mg initially along with Lipitor 40 mg daily at bedtime; initially MRI of the brain was recommended which could not be done because of bladder stimulator; Plavix has been discontinued since this does not seem like a stroke; patient remains on Lipitor - Remains on meclizine 25 mg by mouth 4 times a day - Patient was evaluated by psych and no urgent need for inpatient psych evaluation was recommended Intractable nausea and vomiting - Patient continues to complain of persistent nausea and vomiting requiring medication - Remains on IV fluids and Zofran 4 mg IV every 8 hours when necessary Hypertension; remains controlled on lisinopril 40 mg daily Asthma; not in exacerbation; DuoNeb nebulizer treatments 4 times a day when necessary; Singulair 10 mg daily at bedtime DVT prophylaxis; SCDs/subcu Lovenox CODE STATUS; full code
--- NOTE | 2021-02-28 18:46 | P.PN ---
Subjective Progress Note Date: 02/28/21 Principal diagnosis: Intractable dizziness/nausea/vomiting Sinus tachycardia likely related to dehydration Acute vertigo with left hemiparesis 50 year old male who presented to [facility] emergency room with a chief complaint of dizziness with multiple episodes of vomiting that started around 3 AM He was evaluated in the emergency room vital examination on presentation revealed Testing in the emergency room revealed elevated white blood cell count 11.3, negative troponin. Amylase and lipase within normal limits. COVID-19 negative. EKG normal sinus rhythm. Head CT showing no acute intracranial hemorrhage or midline shift noticing change from prior exam. Patient was admitted to medical floor for further evaluation and treatment Patient continues to report episodes of severe dizziness on occasions even while laying in bed; patient has had extensive cardiac, neurological and psychiatric workup; patient insists that she hasn't been worked up properly for above said concerns and wants to be able to discuss this with Dr. Hurtado 02/28/2021 Patient is seen and evaluated laying in bed; continues to complain of intractable dizziness; reports weakness and numbness in the left side first thing in the morning; patient insists that she has not been evaluated by neurology; recommendations were reviewed with patient and all the workup in great detail; patient requesting to be evaluated by ENT; reports not able to even get out of bed without getting dizzy with fear of fall Vital signs are stable with temperature 98.4, pulse 85, respiration 20 and blood pressure 137/79 Labs reviewed from yesterday and are stable; patient has been evaluated by PT/OT Patient has had pretty extensive workup; would recommend a possible ENT evaluation; I believe that to Dr. Hurtado's discretion Objective - Vital Signs Vital signs: Vital Signs Temp 99.3 F 02/28/21 08:00 Pulse 94 02/28/21 08:00 Resp 20 02/28/21 08:00 BP 146/91 02/28/21 08:00 Pulse Ox 98 02/28/21 08:00 Intake & Output 02/27/21 02/28/21 02/28/21 18:59 06:59 18:59 Intake Total 240 480 Balance 240 480 Weight 83.4 kg Intake: Oral 240 480 Other: Voiding Method Bedpan # Voids 1 2 - Exam PHYSICAL EXAMINATION: GENERAL: The patient is alert and oriented x3, not in any acute distress. Well developed, well nourished. HEENT: Pupils are round and equally reacting to light. EOMI. No scleral icterus. No conjunctival pallor. Normocephalic, atraumatic. No pharyngeal erythema. No thyromegaly. CARDIOVASCULAR: S1 and S2 present. No murmurs, rubs, or gallops. PULMONARY: Chest is clear to auscultation, no wheezing or crackles. ABDOMEN: Soft, nontender, nondistended, normoactive bowel sounds. No palpable organomegaly. MUSCULOSKELETAL: No joint swelling or deformity. EXTREMITIES: No cyanosis, clubbing, or pedal edema. NEUROLOGICAL: Gross neurological examination did not reveal any focal deficits. SKIN: No rashes. - Labs CBC & Chem 7: 02/27/21 08:33 02/27/21 08:33 Labs: Abnormal Lab Results - Last 24 Hours (Table) 02/27/21 02/27/21 02/27/21 Range/Units 11:47 16:48 20:14 POC Glucose (mg/dL) 153 H 209 H 258 H (75-99) mg/dL 02/28/21 Range/Units 06:03 POC Glucose (mg/dL) 202 H (75-99) mg/dL Assessment and Plan Assessment: Acute vertigo with left hemiparesis - Patient had extensive neurological workup done; was not given any TPA because of being outside the window; she was started on aspirin and Plavix 75 mg initially along with Lipitor 40 mg daily at bedtime; initially MRI of the brain was recommended which could not be done because of bladder stimulator; Plavix has been discontinued since this does not seem like a stroke; patient remains on Lipitor - Remains on meclizine 25 mg by mouth 4 times a day - Patient was evaluated by psych and no urgent need for inpatient psych evaluation was recommended Intractable nausea and vomiting - Patient continues to complain of persistent nausea and vomiting requiring medication - Remains on IV fluids and Zofran 4 mg IV every 8 hours when necessary Hypertension; remains controlled on lisinopril 40 mg daily Asthma; not in exacerbation; DuoNeb nebulizer treatments 4 times a day when necessary; Singulair 10 mg daily at bedtime DVT prophylaxis; SCDs/subcu Lovenox CODE STATUS; full code
[2021-02-28 20:22] LABS: Glucose,Whole Blood 300 mg/dL (75-99)
[2021-02-28] MEDS: ATORVASTATIN 40 MG TAB PO SCH (21:06)
[2021-02-28] MEDS: MONTELUKAST 10 MG TAB PO SCH (21:07)
[2021-03-01 07:15] LABS: Glucose,Whole Blood 160 mg/dL (75-99)
[2021-03-01] MEDS: ASPIRIN 81 MG PO SCH (08:08)
[2021-03-01] MEDS: ENOXAPARIN 40 MG/0.4 ML SYRINGE SQ SCH (08:08)
[2021-03-01] MEDS: INSULIN ASPART (NovoLOG) 100 UNIT/ML VIAL SQ SCH ×2 (08:08→12:51)
[2021-03-01] MEDS: MECLIZINE 25 MG TAB PO SCH ×2 (08:08→14:26)
[2021-03-01] MEDS: lisinopriL 20 MG TAB PO SCH (08:08)
[2021-03-01] MEDS: PANTOPRAZOLE 40 MG TABLET PO SCH (08:08)
[2021-03-01] MEDS: SODIUM CHLORIDE 0.9% 1,000 ML IV SCH (08:13)
[2021-03-01] MEDS: DIVALPROEX ER 250 MG TAB.ER.24H PO SCH ×2 (11:13→12:51)
[2021-03-01 11:58] LABS: Glucose,Whole Blood 195 mg/dL (75-99)
[2021-03-01 13:36] VITALS: BP 133/89; PULSE 89; RESP 16; TEMP 97.5
[2021-03-01 14:21] LABS: HCV Qualitative Result Not detected (Not detected); HCV Quant Log <1.08 (<1.08); HCV Quantitative Result <12 IU/mL (<12)
--- NOTE | 2021-03-02 08:59 | P.DS ---
Providers Date of admission: 02/24/21 11:01 Expected date of discharge: 03/01/21 Attending physician: Arya Hurtado Consults: 02/23/21 11:13 Consult Physician Routine Consulting Provider: Clifford Lorenzo Consult Reason/Comments: vertigo Do you want consulting provider notified?: Yes 02/24/21 09:45 Consult Physician Routine Consulting Provider: Alena Harris Consult Reason/Comments: stroke Do you want consulting provider notified?: Yes 02/24/21 18:51 Consult Physician Routine Consulting Provider: Armando Silva Consult Reason/Comments: hx scizozophrenia stroke like symptoms? Do you want consulting provider notified?: Yes 02/25/21 17:34 Consult Physician Routine Consulting Provider: Ovi Villavicencio Consult Reason/Comments: severe vertigo and nausea Do you want consulting provider notified?: Yes Primary care physician: Noemy Longoria Hospital Course: Final diagnosis Acute vertical with left hemiparesis Possible left otitis media and externa Intractable nausea and vomiting, improved Hypertension asthma not acute exacerbation Gait dysfunction History of depression and schizophrenia DVT prophylaxis Full code Discharge disposition Patient is being discharged in a stable condition with guarded prognosis to [facility] for continued PT/OT therapy. Patient will follow-up with Dr. Fernandez in the outpatient setting upon discharge. Patient with Dr. Longoria upon discharge from [facility]. She will continue on a short course of oral antibiotics in the form of Augmentin twice daily for the next 5 days along with Cortisporin eardrops 2 drops to the left ear 3 times daily for 10 days. She will need to follow-up with ENT in the outpatient center for further evaluation. Total time taken is greater than 35 minutes. Hospital course 50 year old male who presented to [facility] emergency room with a chief complaint of dizziness with multiple episodes of vomiting that started around 3 AM He was evaluated in the emergency room vital examination on presentation revealed Testing in the emergency room revealed elevated white blood cell count 11.3, negative troponin. Amylase and lipase within normal limits. COVID-19 negative. EKG normal sinus rhythm. Head CT showing no acute intracranial hemorrhage or midline shift noticing change from prior exam. Patient was admitted to medical floor for further evaluation and treatment Patient continues to report episodes of severe dizziness on occasions even while laying in bed; patient has had extensive cardiac, neurological and psychiatric workup; patient insists that she hasn't been worked up properly for above said concerns and wants to be able to discuss this with Dr. Hurtado 02/28/2021 Patient is seen and evaluated laying in bed; continues to complain of intractable dizziness; reports weakness and numbness in the left side first thing in the morning; patient insists that she has not been evaluated by neurology; recommendations were reviewed with patient and all the workup in great detail; patient requesting to be evaluated by ENT; reports not able to even get out of bed without getting dizzy with fear of fall Vital signs are stable with temperature 98.4, pulse 85, respiration 20 and blood pressure 137/79 Labs reviewed from yesterday and are stable; patient has been evaluated by PT/OT Patient has had pretty extensive workup; would recommend a possible ENT evaluation; I believe that to Dr. Hurtado's discretion 03/01/2021 She is seen in follow-up continues to be weak and has been evaluated by physical therapy recommending subacute rehab for some strengthening mobility. Patient was accepted at [facility] [place] and will be discharged today. Patient will need close outpatient follow-up with ENT and will continue on oral antibiotics in the form of Augmentin twice daily for the next 5 days along with Cortisporin eardrops for the next 10 days to the left ear. Patient will also need neurology follow-up in the outpatient setting. Recommend continue with Accu-Cheks before meals and at bedtime and continue current medication regimen. Currently no reports of chest pain, shortness of breath, or palpitations. Patient is afebrile. No reports of nausea or vomiting and patient is tolerating diet. Patient will be going to [facility] today. Physical exam: GENERAL: The patient is alert and oriented x3, not in any acute distress. Well developed, well nourished. HEENT: Pupils are round and equally reacting to light. EOMI. No scleral icterus. No conjunctival pallor. Normocephalic, atraumatic. No pharyngeal erythema. No thyromegaly. Left ear cerumen with no impaction with some mild inflammation noted of the left ear canal CARDIOVASCULAR: S1 and S2 present. No murmurs, rubs, or gallops. PULMONARY: Chest is clear to auscultation, no wheezing or crackles. ABDOMEN: Soft, nontender, nondistended, normoactive bowel sounds. No palpable organomegaly. MUSCULOSKELETAL: No joint swelling or deformity. EXTREMITIES: No cyanosis, clubbing, or pedal edema. NEUROLOGICAL: Gross neurological examination did not reveal any focal deficits. Diffuse weakness SKIN: No rashes. Please refer to medication reconciliation sheet for a list of medications. Patient Condition at Discharge: Stable Plan - Discharge Summary Discharge Rx Participant: Yes New Discharge Prescriptions: New Zekcqsdr-Lqjujssev-Mw Otic [Cortisporin Otic Soln] 2 drops LEFT EAR TID 10 Days #10 ml Meclizine [Antivert] 25 mg PO QID #30 tab Aspirin 81 mg PO DAILY 30 Days #30 tab Atorvastatin [Lipitor] 40 mg PO HS 30 Days #30 tab Continue Chlorthalidone 50 mg PO DAILY Benazepril HCl [Lotensin] 40 mg PO BID Montelukast Sodium [Singulair] 10 mg PO HS Ergocalciferol [Vitamin D2 (1250 Mcg = 67221 Iu)] 1,250 mcg PO Q7D Ipratropium-Albuterol Nebulize [Duoneb 0.5 mg-3 mg/3 ml Soln] 3 ml INHALATION RT-Q6H PRN PRN Reason: Shortness Of Breath Insulin Regular [HumuLIN R] 120 units SQ AC-BRKFST Cetirizine HCl [Zyrtec] 10 mg PO TID Baclofen [Lioresal] 10 mg PO BID Dulaglutide [Trulicity] 1.5 mg SQ Q7D metFORMIN HCL [Glucophage] 1,000 mg PO BID Triamcinolone 0.1% Cream [Kenalog 0.1% Cream] 1 applicatio TOPICAL BID Insulin Regular [HumuLIN R] 60 units SQ AC-SUPPER Insulin Regular [HumuLIN R] 25 units SQ AC-LUNCH Divalproex ER [Depakote ER] 250 mg PO DAILY Amoxic-Pot Clav 875-125Mg [Augmentin 875-125] 1 tab PO Q12HR 5 Days #10 tab Discharge Medication List Benazepril HCl [Lotensin] 40 mg PO BID 07/31/18 [History] Chlorthalidone 50 mg PO DAILY 07/31/18 [History] Montelukast Sodium [Singulair] 10 mg PO HS 10/21/19 [History] Baclofen [Lioresal] 10 mg PO BID 02/23/21 [History] Cetirizine HCl [Zyrtec] 10 mg PO TID 02/23/21 [History] Divalproex ER [Depakote ER] 250 mg PO DAILY 02/23/21 [History] Dulaglutide [Trulicity] 1.5 mg SQ Q7D 02/23/21 [History] Ergocalciferol [Vitamin D2 (1250 Mcg = 01815 Iu)] 1,250 mcg PO Q7D 02/23/21 [History] Insulin Regular [HumuLIN R] 25 units SQ AC-LUNCH 02/23/21 [History] Insulin Regular [HumuLIN R] 60 units SQ AC-SUPPER 02/23/21 [History] Insulin Regular [HumuLIN R] 120 units SQ AC-BRKFST 02/23/21 [History] Ipratropium-Albuterol Nebulize [Duoneb 0.5 mg-3 mg/3 ml Soln] 3 ml INHALATION RT-Q6H PRN 02/23/21 [History] Triamcinolone 0.1% Cream [Kenalog 0.1% Cream] 1 applicatio TOPICAL BID 02/23/21 [History] metFORMIN HCL [Glucophage] 1,000 mg PO BID 02/23/21 [History] Amoxic-Pot Clav 875-125Mg [Augmentin 875-125] 1 tab PO Q12HR 5 Days #10 tab 03/01/21 [Rx] Aspirin 81 mg PO DAILY 30 Days #30 tab 03/01/21 [Rx] Atorvastatin [Lipitor] 40 mg PO HS 30 Days #30 tab 03/01/21 [Rx] Meclizine [Antivert] 25 mg PO QID #30 tab 03/01/21 [Rx] Olqivuox-Mvbxpiolh-Ia Otic [Cortisporin Otic Soln] 2 drops LEFT EAR TID 10 Days #10 ml 03/01/21 [Rx] Follow up Appointment(s)/Referral(s): Noemy Longoria MD [Primary Care Provider] - 1-2 days Ovi Villavicencio MD [STAFF PHYSICIAN] - 1-2 Days Patient Instructions/Handouts: Meclizine (By mouth), Amoxicillin/Clavulanate Potassium (By mouth), Atorvastatin (By mouth), Neomycin/Polymyxin B/Hydrocortisone (Into the ear), Dehydration (DC), Vertigo (DC), Ear Infection (DC) Activity/Diet/Wound Care/Special Instructions: Activity Limited until follow-up Follow-up with primary care provider on discharge Follow-up with ENT in one week Continue taking medications as prescribed Continue monitoring blood sugars closely and a diary for primary care follow-up Discharge Disposition: DC/TRNS [facility] FAC/UNT W/PND R
== END 2021-03-01 16:37 | DRG 149 ==
LOC: EC 06:23 → 6NMEDSUR 11:12 → OBSVTOIN 02-24 11:01 → 3SCARD 02-24 14:34 → 5NMEDONC 02-28 19:10
PROVIDERS: ADMIT Internal Medicine; ATTEND Internal Medicine
DX: R42 Dizziness and giddiness (principal); G81.94 Hemiplegia, unspecified affecting left nondominant side; F20.9 Schizophrenia, unspecified; E11.9 Type 2 diabetes mellitus without complications; D72.829 Elevated white blood cell count, unspecified; J44.9 Chronic obstructive pulmonary disease, unspecified; Z79.4 Long term (current) use of insulin; Z20.822 Contact with and (suspected) exposure to COVID-19; H66.92 Otitis media, unspecified, left ear; H60.92 Unspecified otitis externa, left ear; H53.2 Diplopia; E86.0 Dehydration; G43.909 Migraine, unspecified, not intractable, without status migrainosus; I10 Essential (primary) hypertension; I08.1 Rheumatic disorders of both mitral and tricuspid valves; H91.93 Unspecified hearing loss, bilateral; R11.2 Nausea with vomiting, unspecified; G47.30 Sleep apnea, unspecified; M54.9 Dorsalgia, unspecified; K76.9 Liver disease, unspecified; I49.3 Ventricular premature depolarization; F32.A Depression, unspecified; M19.90 Unspecified osteoarthritis, unspecified site; Z79.84 Long term (current) use of oral hypoglycemic drugs; Z79.899 Other long term (current) drug therapy; Z87.39 Personal history of other diseases of the musculoskeletal system and connective tissue; Z98.51 Tubal ligation status; Z56.0 Unemployment, unspecified; Z96.0 Presence of urogenital implants; Z98.890 Other specified postprocedural states; Z88.7 Allergy status to serum and vaccine; Z83.3 Family history of diabetes mellitus; Z82.49 Family history of ischemic heart disease and other diseases of the circulatory system; Z83.79 Family history of other diseases of the digestive system; Z83.49 Family history of other endocrine, nutritional and metabolic diseases
CPT/HCPCS: 36415; 70450; 70496; 70498; 76700; 80053; 80061; 80306; 81003; 82150; 83605; 83690; 83735; 84484; 85025; 85610; 85730; 86704; 86705; 86706; 86803; 87340; 87522; 87635; 93005; 93306; 93880; 96361; 96374; 96375; 96376; 99285

== ENCOUNTER → 2022-04-21 | Outpatient (CLI) | payer OTHER ==
--- NOTE | 2022-04-22 03:22 | MR ---
EXAMINATION TYPE: MR knee RT wo con DATE OF EXAM: 04/21/2022 COMPARISON: None HISTORY: Right knee pain. Multiplanar multiecho imaging of the right knee performed with no contrast. The anterior and posterior cruciate ligaments are intact. There is mild knee joint effusion. The reggie ateral ligaments are intact there is complex horizontal and vertical signal through the anterior horn of the lateral meniscus. There is some increased signal within the posterior horn of the lateral men iscus. There is degenerative thinning of the lateral meniscus. There is horizontal tear through the posterior horn of the medial meniscus extending to the inferior surface. No fracture seen. No focal bony destructive process. There is small knee joint effusion. There is 5 x 2 cm cystic fluid collection posterior to the proxim al tibia. This is consistent with synovial cyst. There is a minute knee joint effusion. There is smal l degenerative cysts in the patella measuring 5 mm. IMPRESSION: Moderate tears of the anterior horn lateral meniscus and posterior horn of the medial meniscus. No ev idence of ligamentous tear. There is mild osteoarthritic narrowing lateral joint space. Synovitis cyst noted posterior to the proximal tibial metaphysis. Small joint effusion.
== END | disposition home or self-care (01) ==
LOC: RADMRIMAIN 10:36
PROVIDERS: ATTEND Orthopaedic Surgery
DX: M23.351 Other meniscus derangements, posterior horn of lateral meniscus, right knee (principal); M17.11 Unilateral primary osteoarthritis, right knee; M65.861 Other synovitis and tenosynovitis, right lower leg; M25.461 Effusion, right knee

== ENCOUNTER → 2022-05-04 | Outpatient (CLI) | payer OTHER ==
--- NOTE | 2022-05-05 04:19 | MR ---
EXAMINATION TYPE: MR hand LT wo con DATE OF EXAM: 05/04/2022 COMPARISON: None HISTORY: Soft tissue mass on palm. Multiplanar multiecho imaging of the left hand performed with no contrast. The metacarpals are intact. Carpal bones are intact. No evidence of any significant bone edema. There is 7 mm cystic fluid collection in the base of the proximal phalanx of the thumb consistent with a s imple bone cyst. There is mild increased fluid signal around the distal phalanx of the thumb. The int ercarpal joint spaces appear normal. Radiocarpal joint is intact. The extensor and flexor tendons of the wrist appear intact. 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 Mild soft tissue edema around the distal phala nx of the thumb. No evidence of a soft tissue mass on the palm of the hand. No fracture.
== END | disposition home or self-care (01) ==
LOC: RADMRIMAIN 18:34
PROVIDERS: ATTEND Orthopaedic Surgery Hand Surgery
DX: M85.642 Other cyst of bone, left hand (principal); R22.32 Localized swelling, mass and lump, left upper limb

== ENCOUNTER → 2024-06-06 | Outpatient (CLI) | payer OTHER ==
[2024-06-06 15:48] VITALS: BP 146/84; PULSE 89; RESP 16; TEMP 97.7
--- NOTE | 2024-06-06 16:44 | P.SLEEP ---
History of Present Illness DATE: 06/06/2024 CONSULTATION/NEW PATIENT EVALUATION HISTORY OF PRESENT ILLNESS/SLEEP-WAKE EVALUATION: 53-year-old lady had been ev aluated in the sleep center for possible obstructive sleep apnea hypopnea syndrome. Patient has history of obstructive sleep apnea, last time I saw patient in 2020. At that time apnea hypopnea index was in mild range. Patient stopped using CPAP equipment several years ago. SLEEP SCHEDULE: Usually sleep schedule 34 AM until 7 AM. FALLING ASLEEP: Patient has difficulties with falling asleep, no TV in bedroom. DURING SLEEP: Patient has loud snoring and episodes of stop breathing during the sleep. Positive history of awakenings from sleep 3 times with nocturia, choking, panic attacks, dry mouth, heartburn, grinding teeth, sweating and gasping for air no history of hypnogogical hallucinations, sleep paralysis, or cataplexy. DURING THE DAY/WAKE STATE: Patient has difficulties to pay attention, has problems with memory, concentration, depression, claustrophobia. [place] sleepiness scale is increased to 10. Usually patient does not take naps. PAST MEDICAL HISTORY: Depression, anxiety, schizophrenia, stroke, hypertension, diabetes mellitus, periodic limb movements, migraines. PAST SURGICAL HISTORY: Brain surgery, bladder stimulator. MEDICATIONS: Have been reviewed, please see below. SOCIAL HISTORY: Please see below. FAMILY HISTORY: Please see below. REVIEW OF SYSTEMS: Snoring, multiple awakenings from sleep, sleepiness during the day. No fevers. No double vision. No recent chest pain. No shortness of breath. No abdominal pain. No bleeding episodes. No blood in urine. No seizure episodes. PHYSICAL EXAMINATION: GENERAL: A pleasant patient without any distress. VITAL SIGNS: Please see below, weight 195.8 pounds, BMI 33.4. HEENT: PERRLA, EOMI. Evaluation of oropharynx showed tongue protrudes midline, low position of soft palate Mallampati 4. NECK: Supple. No JVD. Thyroid is not palpable. 17 inches in circumference. LUNGS: Clear to percussion and to auscultation. Good air exchange. No wheezing or rhonchi. HEART: S1, S2 regular. No murmurs, gallops or rubs. ABDOMEN: Soft and nontender. Bowel sounds are present. No organomegaly appreciated. EXTREMITIES: No clubbing or cyanosis. [employer]: Awake, alert, and oriented x3. Cranial nerves 2 to 7 intact. There is no fasciculation or atrophy noted. No focal deficits observed. ASSESSMENT: 1. Loud snoring, episodes of stop breathing during the sleep, history of obstructive sleep apnea, extremely low position of soft palate Mallampati 4, wide neck 17 inches in circumference, sleepiness. Obstructive sleep apnea hypopnea syndrome. 2. Obesity, BMI 33.4. 3. History of stroke. 4. History of schizophrenia. 5 history of depression. 6 . History of anxiety. 7. Hypertension. 8. Diabetes mellitus. 9 . Periodic limb movements. 10. History of migraine. 11. Status post brain surgery. 12. Status post bladder stimulator insertion. PLAN: 1. Polysomnography for evaluation of patient's breathing during sleep. 2. Following plan after reading sleep study. 3. Preferable position during sleep on the side. 4. No driving if patient feels any sleepiness. Patient is aware of civil and criminal liability for unsafe driving. 5. Sleep hygiene with regular sleep time for at least 7.5-8 hours. 6. Watching and losing weight. Thank you very much for referring this patient for consultation. Sincerely, Jonas Wise MD, PhD, FAASM. Diplomat of [place] [employer], Sleep Medicine Board by [place] [employer] [employer] Software Sales Representative of [facility] [place] cc: Buck Zaldivar MD Past Medical History Past Medical History: Asthma, CVA/TIA, Diabetes Mellitus, Hyperlipidemia, Hypertension, Memory Impairment, Osteoarthritis (OA), Sleep Apnea/CPAP/BIPAP Additional Past Medical History / Comment(s): carpal tunnel, back pain, left arm & leg pain, can't lift left arm up, ? palsy in side of face in past, frequent migraine headaches, [place] in left ear, brain surgery - patient states had "pacemaker" put in brain due to stroke (no blood flow - l side) and it didn't work, needs caratids done now. Panic attacks, schizophrenia. History of Any Multi-Drug Resistant Organisms: Unobtainable Past Surgical History: Tubal Ligation Additional Past Surgical History / Comment(s): Carpal Tunnel Surg on the left hand. Brain surgery, bladder stimulator Past Anesthesia/Blood Transfusion Reactions: No Reported Reaction Past Psychological History: Bipolar, Depression, Panic Disorder, Schizophrenia Smoking Status: Never smoker Past Alcohol Use History: None Reported Past Drug Use History: None Reported - Past Family History Father Family Medical History: Asthma, COPD, Diabetes Mellitus, Hyperlipidemia, Hypertension, Myocardial Infarction ([place]), Sleep Apnea/CPAP/BIPAP Additional Family Medical History / Comment(s): Arthritis, patient unsure what type heart issues - states many heart attacks, snoring, insomnia, Mother Family Medical History: Liver Disease, Thyroid Disorder Additional Family Medical History / Comment(s): hepatitis, ulcers Medications and Allergies Home Medications Medication Instructions Recorded Confirmed Type Benazepril HCl [Lotensin] 40 mg PO BID 07/31/18 02/23/21 History Chlorthalidone 50 mg PO DAILY 07/31/18 02/23/21 History Montelukast Sodium [Singulair] 10 mg PO HS 10/21/19 02/23/21 History Baclofen [Lioresal] 10 mg PO BID 02/23/21 02/23/21 History Cetirizine HCl [Zyrtec] 10 mg PO TID 02/23/21 02/23/21 History Divalproex ER [Depakote ER] 250 mg PO DAILY 02/23/21 02/23/21 History Dulaglutide [Trulicity] 1.5 mg SQ Q7D 02/23/21 02/23/21 History Ergocalciferol [Vitamin D2 (1250 1,250 mcg PO Q7D 02/23/21 02/23/21 History Mcg = [id number] Iu)] Insulin Regular [humuLIN R] 25 units SQ AC-LUNCH 02/23/21 02/23/21 History Insulin Regular [humuLIN R] 60 units SQ AC-SUPPER 02/23/21 02/23/21 History Insulin Regular [humuLIN R] 120 units SQ AC-BRKFST 02/23/21 02/23/21 History Ipratropium-Albuterol Nebulize 3 ml INHALATION RT-Q6H PRN 02/23/21 02/23/21 History [Duoneb 0.5 mg-3 mg/3 ml Soln] Triamcinolone 0.1% Cream [Kenalog 1 applicatio TOPICAL BID 02/23/21 02/23/21 History 0.1% Cream] metFORMIN HCL [Glucophage] 1,000 mg PO BID 02/23/21 02/23/21 History Amoxic-Pot Clav 875-125Mg 1 tab PO Q12HR 5 Days #10 tab 03/01/21 Rx [Augmentin 875-125] Aspirin 81 mg PO DAILY 30 Days #30 tab 03/01/21 Rx Atorvastatin [Lipitor] 40 mg PO HS 30 Days #30 tab 03/01/21 Rx Meclizine [Antivert] 25 mg PO QID #30 tab 03/01/21 Rx Jiendfur-Ctcdioepq-Xj Otic 2 drops LEFT EAR TID 10 Days #10 ml 03/01/21 Rx [Cortisporin Otic Soln] Allergies Allergy/AdvReac Type Severity Reaction Status Date / Time tetanus and diphtheria Allergy Unknown Verified 02/23/21 09:38 toxoids [tetanus & diphtheria toxoids] Physical Exam Vitals: Vital Signs Temp Pulse Resp BP Pulse Ox 06/06/24 15:47 97.7 F 89 16 146/84 99 Intake and Output 06/06/24 06/06/24 06/06/24 06:59 14:59 22:59 Other: Weight 88.677 kg Sleep Note - Sleep Data ESS Total: 10 - Sleep Note Sleep Note: Temperature: 97.7 F Pulse Rate: 89 Respiratory Rate: 16 Blood Pressure: 146/84 SpO2: 99 Height: 5 ft 4 in Weight: 88.677 kg BMI: Neck Circumference: 17
== END ==
LOC: 3 N SLEEP 14:40
PROVIDERS: ATTEND Internal Medicine
DX: G47.33 Obstructive sleep apnea (adult) (pediatric) (principal); E66.9 Obesity, unspecified; G47.61 Periodic limb movement disorder; I10 Essential (primary) hypertension; E11.9 Type 2 diabetes mellitus without complications; Z86.59 Personal history of other mental and behavioral disorders; Z98.890 Other specified postprocedural states; Z86.73 Personal history of transient ischemic attack (TIA), and cerebral infarction without residual deficits; Z88.7 Allergy status to serum and vaccine
CPT/HCPCS: 99211

== ENCOUNTER 2024-07-10 19:54 | Outpatient (CLI) | payer OTHER ==
--- NOTE | 2024-07-11 12:16 | P.PCN ---
Description of Procedure: POLYSOMNOGRAPHY REPORT PROCEDURE(S)/DATE(S): Polysomnography 07/10/2024 CLINICAL: Patient has been seen in the sleep center for evaluation of obstructive sleep apnea-hypopnea syndrome. Please see my consultation. Sleep study has been done for evaluation of patient breathing during the sleep. PROCEDURE: The standard montage for clinical polysomnography included the electroencephalogram, the electrooculogram, the mentalis surface electromyography and Lead II cardiography. The respiratory battery consisted of measurements of nasal/buccal air flow, pressure transducer measurements from nose, thoracic and/or abdominal effort and intercostal surface electromyography. Video monitoring has been done to check for any parasomnia events. Nocturnal oxyhemoglobin saturations were obtained by finger oximetry. Step-rose titration with positive airway pressure was utilized to control the respiratory events, if necessary. RESULTS: During the diagnostic sleep study sleep efficiency was extremely short 43.7%. Latency to sleep onset was extremely low at 193.0 min. Sleep architectu re showed stage NI 3.2%, Delta sleep was absent 0%, REM sleep was in normal range 20.2%. Respiratory channel showed 0 obstructive apneas, 0 mixed apneas, 0 central apneas, 5 hypopneas with lowest oxygen level 90%. Total apnea hypopnea index was 1.9. Total sleep time 158.5 minutes. Heart rate was in the range between 80 and 94, average 87. EMG showed 0 periodic limb movements per hour with 0 micro-arousals per hour. IMPRESSIONS: 1. Extremely low sleep efficiency 43.7%, patient slept only 193 minutes. No significant respiratory abnormalities during this period, but sleep time is not sufficient to make reliable conclusion. 2. No significant periodic limb movements have been documented. Please see other impressions from consultation PLAN: 1. I will see patient for follow-up visit to explain results of the test and recommendations. If necessary we may consider to repeat sleep test at home. 2. Losing weight. 3. Sleep hygiene with regular time in bed for at least 7-1/2 hours. 4. No driving if feeling sleepiness. Thank you very much for allowing me to participate in the management of your patient. Sincerely, Jonas Wise MD, PhD, FAASM. Diplomat of [place] [employer], Sleep Medicine Board by [place] [employer] Political Director of [facility] [place] cc: Buck Zaldivar MD
== END 2024-07-11 05:15 | disposition home or self-care (01) ==
LOC: 3 N SLEEP 19:54
PROVIDERS: ATTEND Internal Medicine
DX: G47.33 Obstructive sleep apnea (adult) (pediatric) (principal); Z88.7 Allergy status to serum and vaccine
CPT/HCPCS: 95810

== ENCOUNTER → 2024-09-18 | Outpatient (CLI) | payer OTHER ==
--- NOTE | 2024-09-25 14:17 | P.PCN ---
Description of Procedure: CLINICAL: A home sleep apnea test has been done for confirmation of possible obstructive sleep apnea-hypopnea syndrome. DESCRIPTION OF PROCEDURE: RESULTS: Recording time was 10 hours 32 minutes. Evaluation time was 7 hours 27 minutes. Evaluation time is sufficient for making conclusion about results of the test. Raw data of sleep recording has been reviewed and is adequate. Respiratory channel showed 13 apneas and 47 hypopneas. Apnea-hypopnea index was 8.0 per hour. Pulse rate in the range between minimum 70, maximum 126, average 92 by computer calculation. Lowest desaturation was 85%. IMPRESSION: 1. Obstructive Sleep Apnea Hypopnea Syndrome in mild range. 2. Hypertension. 3. History of stroke. Please see other impressions from consultation. PLAN: 1. The patient will be started on auto-PAP treatment for correction of respiratory abnormallities during sleep. 2. I will see patient for follow up visit to discuss results of the test, evaluate clinical response on treatment with PAP therapy and make any necessary adjustments related to mask fitting, pressure, and humidification. 3. Watching and losing weight. 4. Sleep hygiene with regular time in bed for at least 8 hours. 5. No driving if feeling any sleepiness. Thank you very much for allowing me to participate in the management of your patient. Sincerely, Jonas Wise MD, PhD, FAASM Diplomat of [employer] Sleep Medicine Board of [place] [employer] Tear Down Worker of [facility] [place] cc: Buck Zaldivar MD
== END ==
LOC: 3 N SLEEP 11:05
PROVIDERS: ATTEND Internal Medicine
DX: G47.33 Obstructive sleep apnea (adult) (pediatric) (principal); I10 Essential (primary) hypertension; Z86.73 Personal history of transient ischemic attack (TIA), and cerebral infarction without residual deficits; Z88.7 Allergy status to serum and vaccine